=== PATIENT | male | born 1990 | race Caucasian/White ===

== ENCOUNTER 2018-12-19 20:50 | Inpatient (IN) ==
[2018-12-19] MEDS ORDERED: NS 1,000 ML IV ONE (22:50)
[2018-12-19] MEDS ORDERED: ATIVAN IV ONE (22:50)
[2018-12-19 23:23] LABS: BASO# 0.02 X1000 (0.0-0.2); BASO% 0.2 % (0.0-0.8); EOS# 0.02 X1000 (0.0-0.7); EOS% 0.2 % (0.0-10.0); HEMATOCRIT 31.1 % (42.0-52.0); HEMOGLOBIN 10.8 g/dL (14.0-18.0); IMM GRAN# 0.08 X1000 (0.0-0.04); IMM GRAN% 0.7 % (0.0-0.5); LYMPH# 0.96 X1000 (1.2-3.4); LYMPH% 8.8 % (20.5-51.1); MCH 29.3 PG (27-31); MCHC 34.7 g/dL (33-37); MCV 84.5 FL (81-99); MONO# 0.78 X1000 (0.11-0.59); MONO% 7.2 % (1.7-9.3); MPV 11.2 FL (7.4-10.4); NEUT# 9.01 X1000 (1.4-6.5); NEUT% 82.9 % (42.2-75.2); PLT 201 X1000 (130-400); RBC 3.68 XMIL (4.7-6.1); RDW 14.6 % (11.5-14.5); WBC 10.87 X1000 (4.8-10.8)
[2018-12-19 23:35] LABS: INR 1.16; PROTIME 15.4 Seconds (11.0-16.0)
[2018-12-19 23:36] LABS: PTT 33.7 Seconds (22.3-41.8)
[2018-12-19 23:49] LABS: ESTIMATED GFR > 60
[2018-12-19 23:53] LABS: AGAP 13; ALBUMIN 3.2 g/dL (3.5-5.0); ALKALINE PHOSPHATASE 98 U/L (32-122); BUN 10 mg/dL (8-22); CALCIUM 8.1 mg/dL (8.8-10.2); CHLORIDE 89 mmol/L (98-107); CK PROFILE 143 U/L (24-204); COSMO 252; CREATININE 0.8 mg/dL (0.7-1.2); GLUCOSE 120 mg/dL (70-104); GOT 33 U/L (10-34); GPT 35 U/L (10-44); POTASSIUM 4.7 mmol/L (3.5-5.1); SODIUM 125 mmol/L (136-145); TCO2 23 mmol/L (25-35); TOTAL PROTEIN 6.5 g/dL (6.3-8.3)
[2018-12-20 00:34] LABS: BILIRUBIN URINE NEGATIVE (NEGATIVE); BLOOD URINE 1+ (NEGATIVE); CLARITY CLEAR (CLEAR); COLOR YELLOW; GLUCOSE URINE NEGATIVE (NEGATIVE); KETONE URINE NEGATIVE (NEGATIVE); LEUKOCYTES URINE 2+ (NEGATIVE); NITRITE URINE NEGATIVE (NEGATIVE); PROTEIN URINE 1+(30 mg/dL) mg/dL (NEGATIVE); UROBILINOGEN URINE NORMAL
[2018-12-20 00:41] LABS: URINE BACTERIA 4+ /HFP; URINE CAST NONE SEEN /LPF; URINE CRYSTAL NONE SEEN /HPF; URINE EPITHELIAL CELLS <10 /HPF (<10); URINE RBC <10 /HPF (<10); URINE YEAST NONE SEEN /HPF
[2018-12-20 00:42] LABS: URINE SOURCE CLEAN CATCH
[2018-12-20 00:43] LABS: UR AMPHETAMINES QUAL PRESUMPTIVE POSITIVE (NONE DETECT); UR BARBITUATES QUAL NONE DETECTED (NONE DETECT); UR BENZODIAZEPIN QUAL NONE DETECTED (NONE DETECT); UR CANNABINOIDS QUAL NONE DETECTED (NONE DETECT); UR COCAINE QUAL NONE DETECTED (NONE DETECT); UR METHADONE QUAL NONE DETECTED (NONE DETECT); UR METHAMPHETAMINE QUAL PRESUMPTIVE POSITIVE (NONE DETECT); UR OPIATES QUAL PRESUMPTIVE POSITIVE (NONE DETECT); UR OXYCODONE QUAL NONE DETECTED (NONE DETECT); UR PCP QUAL NONE DETECTED (NONE DETECT); UR PROPOXYPHENE QUAL NONE DETECTED (NONE DETECT); UR TCA QUAL NONE DETECTED (NONE DETECT)
[2018-12-20] MEDS ORDERED: CARDIZEM IV ONE (00:58)
[2018-12-20] MEDS ORDERED: NS 1,000 ML IV ONE ×2 (00:59→02:04)
[2018-12-20] MEDS ORDERED: MOTRIN PO ONE (01:31)
[2018-12-20] MEDS ORDERED: CARDIZEM 125 MG/D5W 125 MG/125 ML IVPB IV SCH (02:00)
--- NOTE | 2018-12-20 02:05 | PROVIDER DOCUMENTATION ---
This chart was entered by Hui Acosta Scribe, acting as scribe for Janet Larkin MD. HPI-General Adult - General Chief Complaint: Extremity Pain Stated Complaint: EXTREMITY PAIN Time Seen by Provider: 12/19/18 22:21 Source: patient Allergies/Adverse Reactions: Patient Allergies Allergy/AdvReac Type Severity Reaction Status Date / Time No Known Allergies Allergy Verified 12/19/18 20:56 Home Medications: Home Medication List Medication Instructions Recorded Confirmed Last Taken Type Ketorolac [Toradol] 10 mg PO Q6H PRN PRN #20 tab 12/20/18 Unknown Rx - History of Present Illness -Gen Adult Nature of Presenting Problems: pt is a 28 yr old male presenting with complaint of left knee pain, no injury, pt reports he has had similar complaint x several months, pain moves randomly from joint to joint. Review of Systems - Adult - REVIEW OF SYSTEMS - ADULT Constitutional: reports: fatique, weight loss Eyes: reports: no symptoms reported Ears, Nose, Mouth & Throat: reports: no symptoms reported Cardiovascular: denies: chest pain, palpitations, syncope Respiratory: denies: cough, shortness of breath Gastrointestinal: reports: poor appetite. denies: abdominal pain, nausea Genitourinary: reports: no symptoms reported Musculoskeletal: reports: joint pain, muscle aches Integumentary: reports: no symptoms reported Neurological: denies: dizziness/vertigo, headache/migraines, syncope Psychiatric: reports: no symptoms reported Endocrine: reports: no symptoms reported Hematologic/Lymphatic: reports: no symptoms reported Allergic/Immunologic: reports: no symptoms reported All Other Systems: Reviewed and Negative Past History - Adult - PAST MEDICAL HISTORY-ADULT Review of Records: reports: Old Records Reviewed, Nursing Assessment Review, Medications Reviewed, Social history reviewed & non-contributory. Major Childhood Illnesses: reports: denies history Cardiovascular: reports: denies history Respiratory: reports: denies history Gastrointestinal: reports: hepatitis (c) Obstetrical/Gynecological: reports: denies history Genitourinary: reports: denies history Musculoskeletal: reports: denies history Neurological: reports: denies history Endocrine/Immune: reports: denies history Other Conditions: reports: denies history - IMMUNIZATION STATUS Childhood Immunizations: See Nurse Assessment Flu Vaccine: See Nurse Assessment - FAMILY HISTORY Family History: reviewed, not pertinent - SOCIAL HISTORY Smoking: denies Substance Use: denies Living Situation: family Physical Exam-General - PHYSICAL EXAM-ADULT Initial Vital Signs Reviewed: Yes - CONSTITUTIONAL General Appearance: alert, no apparent distress, thin - EYES Eyes: PERRL/EOMI - HEAD, EARS, NOSE, MOUTH & THROAT HENMT: normocephalic/atraumatic, moist mucous membranes - NECK Neck: non-tender, full range of motion, supple, normal inspection - RESPIRATORY Respiratory: lungs clear, normal breath sounds - CARDIOVASCULAR Cardiovascular: normal peripheral pulses, tachycardia (148) - GASTROINTESTINAL (ABDOMEN) Abdominal Exam: normal bowel sounds, non tender, soft - LYMPHATIC Lymphatic: no adenopathy - MUSCULOSKELETAL Back Exam: normal inspection, no CVA tenderness, no vertebral tenderness Extremity: tenderness (left knee). negative: deformity, swelling - SKIN Integumentary: normal color, normal turgor, warm/dry - NEUROLOGIC Neurologic: grossly normal - PSYCHIATRIC Psych/Mental Status: normal mood/affect Progress - PLAN OF CARE/RESULTS Progress/Plan/Lab Results: Vital Signs - 8 hr 12/19/18 20:51 Temperature 100.3 F H Pulse Rate 173 H Respiratory Rate 20 Blood Pressure 159/72 O2 Sat by Pulse Oximetry 96 Result Diagrams: 12/19/18 23:00 12/19/18 23:00 Departure - Departure Date of Disposition Decision: 12/20/18 Time of Disposition Decision: 00:56 DIAGNOSIS: Substance abuse Joint pain Qualifiers: Joint pain location: knee Laterality: left Qualified Code(s): M25.562 - Pain in left knee Fever Qualifiers: Fever type: drug-induced Qualified Code(s): R50.2 - Drug induced fever Disposition: ADMITTED INPATIENT 09 Certified Medical Emergency: Emergent Condition: Stable Prescriptions: Ketorolac [Toradol] 10 mg PO Q6H PRN PRN #20 tab PRN Reason: Pain Referrals and Follow-Ups: None,PCP [Primary Care Provider] - - Critical Care Note This patient required my direct & personal management of CC.: Yes Total Time (mins): 60 Critical Care Statement: This patient required my direct personal management to treat or rule out processes, the absence of which, could potentiallly result in sudden, clinically significant life or limb threatening deterioration. Attestation - Physician/ MOUNIKA Attestation Patient care was provided by Advanced Practice Provider:: No The physician spent face to face time with patient:: Yes (patient has spike) Advanced Practice Provider documentation review:: Supervising physician onsite and consulted in the evaluation and care of this patient. The physician did have a face to face encounter with the patient. This chart was documented by the indicated scribe, (Hui Acosta Scribe) and a ccurately reflects the services I performed and decisions made by me, Janet Larkin MD, as attested by the provider's signature.
[2018-12-20] MEDS ORDERED: ATIVAN IV ONE (03:57)
[2018-12-20] MEDS ORDERED: ATIVAN IV PRN (03:58)
[2018-12-20] MEDS: NS 1,000 ML IV SCH ×2 (04:14→10:12)
--- NOTE | 2018-12-20 04:53 | HISTORY AND PHYSICAL ---
PRIMARY CARE PHYSICIAN: None. COMPLAINT: Lower extremity pain and weakness. HISTORY OF PRESENTING ILLNESS: The patient is a 28-year-old male without any significant past medical history who had initially presented to [facility] with complaint of left knee pain and lower extremity weakness that has been ongoing for the past 3 months. Apparently the ER physician who evaluated the patient thought that the symptoms were secondary to substance abuse. His UDS was positive for methamphetamine and opiates. The patient was apparently agitated and was having fever, and due to lack of medical beds there the patient was transferred to [facility] for further treatment. At the time of my examination the patient states that his only problem was having lower extremity pain; however, he was initially found to be tachycardic and was put on Cardizem. The patient had denied any headache, fever, chills, chest pain, shortness of breath or weight changes, he just complained of lower extremity gonsales. PAST MEDICAL HISTORY: None. PAST SURGICAL HISTORY: None. ALLERGIES: No known drug allergies. CURRENT MEDICATIONS: None. SOCIAL HISTORY: No history of smoking. No alcohol use. Admits to marijuana use. FAMILY HISTORY: Positive for coronary disease in father. REVIEW OF SYSTEMS: Fourteen point review of systems is as in the HPI. Other systems negative. PHYSICAL EXAMINATION: GENERAL: A cooperative friendly male. He is resting comfortably. VITAL SIGNS: Temperature 100.1 degrees, pulse 142, respirations 21, blood pressure 120/57. HEENT: Atraumatic and normocephalic. Extraocular movements are intact. PERRLA. NECK: No masses. CHEST: Clear to auscultation. CARDIOVASCULAR: Tachycardic. ABDOMEN: Soft. Positive bowel sounds. EXTREMITIES: Lower extremity tenderness bilaterally. GENITOURINARY: No bladder distention. NEUROLOGIC: He is awake, alert and oriented x3. SKIN: Warm. LABORATORIES AND STUDIES: WBC is 10.87, hemoglobin 10.8, hematocrit 31.1, platelets 201,000. Sodium 125, potassium 4.7, chloride 89, CO2 is 23, BUN is 10, creatinine is 0.8, glucose is 120. Toxicology shows methamphetamine positive. ASSESSMENT: The patient is a 28-year-old male without any significant past medical history who initially had presented to [facility] with complaint of lower extremity weakness and left knee pain. He was also found to have fever and was tachycardic. He was put on intravenous Cardizem and due to lack of medical beds there he was transferred to [facility] for further treatmentr. 1. Substance abuse with methamphetamines and opioids. 2. Muscle weakness and lower extremity peripheral neuropathy. PLAN: 1. The patient is admitted to [facility]. 2. We will continue with supportive treatment. 3. Continue with adequate hydration. 4. We will consult Neurology for further evaluation of his lower extremity weakness and pain. 5. We will continue to follow, reassess and make further recommendation based on the patient's clinical course. cc: René Greenfield MD
--- NOTE | 2018-12-20 07:03 | Diag Imaging Result Doc PS360 ---
EXAM: CHEST-1 VIEW 12/19/2018 HISTORY: sepsis protocol TECHNIQUE: AP portable at 2327 COMMENT: There are no previous studies. There is no evidence of acute cardiac or pulmonary disease. IMPRESSION: Normal chest. Electronically signed by Magan Thomas 12/20/2018 7:01 AM
--- NOTE | 2018-12-20 07:25 | Diag Imaging Result Doc PS360 ---
EXAM: KNEE 1-2 VIEWS-LEFT 12/19/2018 HISTORY: pain TECHNIQUE: Left knee two views COMMENT: There is no evidence of fracture dislocation or periosteal reaction. There is no evidence of effusion. IMPRESSION: No evidence of acute disease. Electronically signed by Magan Thomas 12/20/2018 7:23 AM
[2018-12-20 08:14] VITALS: BP 115/66
--- NOTE | 2018-12-20 19:08 | CONSULTATION ---
DATE OF CONSULTATION: 12/20/2018 HISTORY OF PRESENT ILLNESS: Mr. Ayala is 28 years old and he reports discomfort in the limbs, mostly joints, possibly gait difficulty. He reports noticing over the last several months that the left foot would occasionally appear swollen, large, bluish purple. During that time, he would have discomfort with bearing weight, limiting his gait, sometimes to the point that he would crawl. Symptoms would usually resolve in a matter of hours or days. He believes his left foot was most often affected, but there were sometimes similar findings in the right foot, more recently in the left knee and in the left shoulder. He does not report specific loss of muscle power, loss of sensation, incontinence, altered awareness or unconsciousness. Workup here includes left knee x-ray showing nothing remarkable. Urine drug screen was positive for opiates, amphetamine, methamphetamine. WBC was 10,870. Sodium 125, glucose 120, calcium 8.1. Initial temperature was 100 degrees, later 103, recently 98. Heart rate was initially 170s and later 120s. Systolic blood pressure was initially 159, later 110-120 range. PHYSICAL EXAMINATION: On exam now, Mr. Ayala is awake, alert, attentive. He seems appropriate. Speech is not dysarthric. Language function is intact. Head and neck are unremarkable. There is no meningismus. Hands and feet are warm. He did well on [id number] testing. He reports good pinprick appreciation over the feet and legs. Proprioception is good at the great toe MTP joint bilaterally. Strength is normal on careful testing of the legs. Reflexes are 2+ at the knees and ankles symmetrically. Plantar response is flexor bilaterally. I did not test his gait. IMPRESSION AND RECOMMENDATIONS: Migratory arthralgia, question of swelling and discoloration, but nothing in his history or on exam now to suggest a primary neurologic or neuromuscular problem. I encouraged him to be careful with gait and activities and to avoid illicit drugs. I do not have anything to add to his hospital management at this time. I will be glad to see Mr. Ayala again, if needed. cc: MD YOLANDA Krishna III
[2018-12-21] MEDS: NS 1,000 ML IV SCH ×2 (00:50→00:51)
--- NOTE | 2018-12-21 12:01 | DISCHARGE SUMMARY ---
ADMISSION DATE: 12/20/2018 DISCHARGE DATE: 12/20/2018 PRINCIPAL DIAGNOSIS: Probable sepsis. SECONDARY DIAGNOSES: 1. Polysubstance abuse. 2. Lower extremity peripheral neuropathy. HOSPITAL COURSE: Mr. Barron Ayala is a 28-year-old male without any significant past medical history, who initially presented to [facility] with complaint of lower extremity weakness as well as left knee pain. He was found to have fever as well as tachycardia. The patient did receive intravenous Cardizem, and due to lack of medical bed, he was transferred to [facility]. While receiving care here, the patient decided to leave the hospital against medical advice. cc: Judah Hopkins MD
== END 2018-12-20 19:00 | disposition left against medical advice (07) | DRG 872 ==
LOC: P.ED 20:50 → 3S 12-20 02:17 → SUATTDRO 12-20 02:17 → 3N 12-20 12:00
PROVIDERS: ATTEND Internal Medicine
CPT/HCPCS: 71010; 71045; 73560; 80053; 80104; 80301; 80305; 81001; 82550; 83605; 84484; 85025; 85610; 85651; 85730; 87040; 87077; 87088; 87186; 96361; 96374; 96375; 99285; A9270; G0431; G0434; G0477; J2060; J7030

== ENCOUNTER 2018-12-22 19:30 | Inpatient (IN) ==
[2018-12-22] MEDS ORDERED: MOTRIN PO ONE (19:43)
[2018-12-22 20:57] LABS: INR 1.2; PROTIME 15.8 Seconds (11.0-16.0)
[2018-12-22 20:58] LABS: PTT 34.4 Seconds (22.3-41.8)
[2018-12-22 20:59] LABS: BASO# 0.02 X1000 (0.0-0.2); BASO% 0.2 % (0.0-0.8); EOS# 0.04 X1000 (0.0-0.7); EOS% 0.4 % (0.0-10.0); HEMATOCRIT 29.5 % (42.0-52.0); HEMOGLOBIN 10.2 g/dL (14.0-18.0); IMM GRAN% 0.9 % (0.0-0.5); LYMPH# 0.99 X1000 (1.2-3.4); LYMPH% 9.4 % (20.5-51.1); MCHC 34.6 g/dL (33-37); MCV 83.8 FL (81-99); MONO# 0.88 X1000 (0.11-0.59); MONO% 8.3 % (1.7-9.3); MPV 11.9 FL (7.4-10.4); NEUT# 8.51 X1000 (1.4-6.5); NEUT% 80.8 % (42.2-75.2); PLT 163 X1000 (130-400); RBC 3.52 XMIL (4.7-6.1); RDW 14.9 % (11.5-14.5); WBC 10.54 X1000 (4.8-10.8)
[2018-12-22 21:09] LABS: ESTIMATED GFR > 60
[2018-12-22 21:19] LABS: BANDS 5 % (0-1); LYMPHS 5 % (21-51); MONO 3 % (1-9); SEGS 87 % (42-75)
[2018-12-22 21:20] LABS: OVALOCYTES OCCASIONAL; POIKILOCYTOSIS OCCASIONAL; VACUOLES 1+
[2018-12-22 21:21] LABS: AGAP 14; ALBUMIN 2.9 g/dL (3.5-5.0); ALKALINE PHOSPHATASE 106 U/L (32-122); BUN 12 mg/dL (8-22); CALCIUM 7.6 mg/dL (8.8-10.2); CHLORIDE 86 mmol/L (98-107); CK PROFILE 66 U/L (24-204); COSMO 252; CREATININE 0.7 mg/dL (0.7-1.2); GLUCOSE 105 mg/dL (70-104); GOT 57 U/L (10-34); GPT 43 U/L (10-44); POTASSIUM 4.4 mmol/L (3.5-5.1); SODIUM 125 mmol/L (136-145); TCO2 25 mmol/L (25-35); TOTAL PROTEIN 6.2 g/dL (6.3-8.3)
--- NOTE | 2018-12-22 22:05 | Diag Imaging Result Doc PS360 ---
EXAM: CHEST-1 VIEW INDICATION: poss sepsis TECHNIQUE: One view COMPARISON: 12/19/2018 FINDINGS: The lungs are grossly clear. There is no discrete pleural fluid collection or pneumothorax. The cardiomediastinal silhouette and central vasculature are grossly unremarkable. IMPRESSION: No evidence of acute pathology by plain radiograph. Electronically signed by Heriberto Vallejo 12/22/2018 10:02 PM
[2018-12-22] MEDS ORDERED: TORADOL IV ONE (22:56)
[2018-12-22] MEDS ORDERED: NS 1,000 ML IV ONE (22:56)
[2018-12-22] MEDS ORDERED: KEFZOL 2 GM/D5W 2 GM/50 ML IVPB IV ONE (23:03)
[2018-12-22] MEDS ORDERED: VANCOMYCIN 1 GM/NS 1 GM/250 ML IVPB IV ONE (23:03)
[2018-12-23] MEDS ORDERED: KEFZOL 1 GM/D5W 2 GM/100 ML IVPB ONE (00:24)
--- NOTE | 2018-12-23 00:51 | PROVIDER DOCUMENTATION ---
This chart was entered by Hui Acosta Scribe, acting as scribe for Teja Shelley MD. HPI-General Adult - General Chief Complaint: Return/Recheck Stated Complaint: ABD PAIN Time Seen by Provider: 12/22/18 22:04 Source: patient Allergies/Adverse Reactions: Patient Allergies Allergy/AdvReac Type Severity Reaction Status Date / Time No Known Allergies Allergy Verified 12/22/18 19:39 Home Medications: Home Medication List Medication Instructions Recorded Confirmed Last Taken Type Ketorolac [Toradol] 10 mg PO Q6H PRN PRN #20 tab 12/20/18 Unknown Rx - History of Present Illness -Gen Adult Nature of Presenting Problems: pt is a 28 yr old male presenting with continued fever, fatigue, joint pain. pt seen/admitted 12/19, left AMA 12/20, pt called today and told his blood cultures were positive. pt returns for further tx. Location of Pain/Injury: reports: generalized (generalized joint pain) Pain Radiation: reports: no radiation Quality of Pain: reports: aching Severity: reports: moderate Onset/Duration: reports: gradual Timing: reports: still present, changing over time, getting worse Context/Activities at Onset: reports: rest Associated Symptoms: reports: fatigue, fever/chills, joint pain (multiple joints), malaise, pain with inspiration, weakness. denies: sinus congestion/drainage, shortness of breath Similar Symptoms Previously?: Yes Recently seen or treated by another doctor?: Yes Review of Systems - Adult - REVIEW OF SYSTEMS - ADULT Constitutional: reports: chills, fever, fatique Eyes: reports: no symptoms reported Ears, Nose, Mouth & Throat: reports: no symptoms reported Cardiovascular: reports: chest pain. denies: palpitations, syncope Respiratory: reports: pleurisy. denies: shortness of breath, wheezing Gastrointestinal: denies: abdominal pain, nausea, vomiting Genitourinary: reports: no symptoms reported Musculoskeletal: reports: joint pain (bilat hands, fett, left shoulder, left knee) Integumentary: reports: no symptoms reported Neurological: denies: dizziness/vertigo, headache/migraines Psychiatric: reports: no symptoms reported Endocrine: reports: excessive sweating Hematologic/Lymphatic: reports: no symptoms reported Allergic/Immunologic: reports: no symptoms reported All Other Systems: Reviewed and Negative Past History - Adult - PAST MEDICAL HISTORY-ADULT Review of Records: reports: Old Records Reviewed, Nursing Assessment Review, Medications Reviewed, Social history reviewed & non-contributory. Major Childhood Illnesses: reports: denies history Cardiovascular: reports: denies history Respiratory: reports: denies history Gastrointestinal: reports: denies history Obstetrical/Gynecological: reports: denies history Genitourinary: reports: denies history Musculoskeletal: reports: denies history Neurological: reports: denies history Endocrine/Immune: reports: denies history Other Conditions: reports: denies history - IMMUNIZATION STATUS Childhood Immunizations: See Nurse Assessment Flu Vaccine: See Nurse Assessment - FAMILY HISTORY Family History: reviewed, not pertinent - SOCIAL HISTORY Substance Use: marijuana, other (heroin) Living Situation: family Physical Exam-General - PHYSICAL EXAM-ADULT Initial Vital Signs Reviewed: Yes - CONSTITUTIONAL General Appearance: mild distress, thin, other (heavy diaphoresis, ruborous, tender hands and ankles) - EYES Eyes: PERRL/EOMI - HEAD, EARS, NOSE, MOUTH & THROAT HENMT: normocephalic/atraumatic, moist mucous membranes, normal ENT inspection - NECK Neck: non-tender, full range of motion, supple, normal inspection - RESPIRATORY Respiratory: chest non-tender, lungs clear, normal breath sounds, no respiratory distress, no accessory muscle use, pain on inspiration - CARDIOVASCULAR Cardiovascular: normal peripheral pulses, no edema, tachycardia - GASTROINTESTINAL (ABDOMEN) Abdominal Exam: non tender, soft - LYMPHATIC Lymphatic: no adenopathy - MUSCULOSKELETAL Back Exam: normal inspection, no CVA tenderness, no vertebral tenderness Extremity: normal range of motion, swelling (right hand, bilateral ankles), tenderness (bilateral hands, left shoulder, left knee, bilateral ankles) Peripheral Pulses: radial (R): 2+, radial (L): 2+ - SKIN Integumentary: normal color, normal turgor, warm/dry, erythema (bilateral hands) - NEUROLOGIC Neurologic: grossly normal - PSYCHIATRIC Psych/Mental Status: normal mood/affect Progress - PLAN OF CARE/RESULTS Progress/Plan/Lab Results: Vital Signs - 8 hr 12/22/18 19:36 12/22/18 20:43 12/22/18 21:24 Temperature 103.1 F H 98.9 F Pulse Rate 150 H 135 H Respiratory Rate 28 H 24 Blood Pressure 118/63 111/67 O2 Sat by Pulse Oximetry 99 98 12/22/18 22:02 Temperature Pulse Rate 99 H Respiratory Rate 19 Blood Pressure 125/61 O2 Sat by Pulse Oximetry 96 Laboratory Results - last 24 hr 12/22/18 12/22/18 12/22/18 20:15 20:15 20:15 WBC 10.54 RBC 3.52 L Hgb 10.2 L Hct 29.5 L MCV 83.8 MCH 29.0 MCHC 34.6 RDW Std Deviation 14.9 H Plt Count 163 MPV 11.9 H Immature Gran % (Auto) 0.9 H Neut % (Auto) 80.8 H Lymph % (Auto) 9.4 L [place] % (Auto) 8.3 Eos % (Auto) 0.4 Baso % (Auto) 0.2 Immature Gran # (Auto) 0.10 H Neut # (Auto) 8.51 H Lymph # (Auto) 0.99 L [place] # (Auto) 0.88 H Eos # (Auto) 0.04 Baso # (Auto) 0.02 Segmented Neutrophils 87 H Band Neutrophils 5 H Lymphocytes 5 L Monocytes 3 Vacuolization 1+ Poikilocytosis OCCASIONAL Ovalocytes OCCASIONAL PT 15.8 INR 1.20 PTT (Actin FS) 34.4 Sodium 125 L Potassium 4.4 Chloride 86 L Carbon Dioxide 25 Anion Gap 14 BUN 12 Creatinine 0.7 Estimated GFR/1.73 m2 > 60 BUN/Creatinine Ratio 17 Glucose 105 H Calculated Osmolality 252 Calcium 7.6 L Total Bilirubin 0.30 AST 57 H ALT 43 Alkaline Phosphatase 106 Creatine Kinase 66 Troponin T Total Protein 6.2 L Albumin 2.9 L Globulin 3.0 Albumin/Globulin Ratio 1.0 Plasma Lactate 12/22/18 12/22/18 20:15 20:15 WBC RBC Hgb Hct MCV MCH MCHC RDW Std Deviation Plt Count MPV Immature Gran % (Auto) Neut % (Auto) Lymph % (Auto) [place] % (Auto) Eos % (Auto) Baso % (Auto) Immature Gran # (Auto) Neut # (Auto) Lymph # (Auto) [place] # (Auto) Eos # (Auto) Baso # (Auto) Segmented Neutrophils Band Neutrophils Lymphocytes Monocytes Vacuolization Poikilocytosis Ovalocytes PT INR PTT (Actin FS) Sodium Potassium Chloride Carbon Dioxide Anion Gap BUN Creatinine Estimated GFR/1.73 m2 BUN/Creatinine Ratio Glucose Calculated Osmolality Calcium Total Bilirubin AST ALT Alkaline Phosphatase Creatine Kinase Troponin T < 0.010 Total Protein Albumin Globulin Albumin/Globulin Ratio Plasma Lactate 0.8 Orders Category Date Time Status Cardiac Monitoring DIRECTED Care 12/22/18 20:03 Active IV Insertion ORDERED Care 12/22/18 20:03 Completed Notify MD of + Sepsis Screen NOW Care 12/22/18 20:03 Active Notify Physician As Ordered Care 12/22/18 20:03 Active CHEST-1 VIEW [RAD] Stat Exams 12/22/18 20:03 Completed BLOOD CULTURE [BLDCUL] Stat Lab 12/22/18 20:15 Results CBC WITH DIFF [HEME] Stat Lab 12/22/18 20:15 Completed CK PROFILE [SP CHEM] Stat Lab 12/22/18 20:15 Completed COMPREHENSIVE METABOLIC PANEL [CHEM] Stat Lab 12/22/18 20:15 Completed LACTATE, PLASMA [CHEM] Q3H Lab 12/22/18 20:15 Completed LACTATE, PLASMA [CHEM] Q3H Lab 12/22/18 20:34 Ordered PROTIME WITH INR [COAG] Stat Lab 12/22/18 20:15 Completed PTT [COAG] Stat Lab 12/22/18 20:15 Completed TROPONIN T Stat Lab 12/22/18 20:[address] W/POSS RFLX CULT [URINALYSIS] Stat Lab 12/22/18 20:03 Uncollected Ibuprofen [Motrin] Med 12/22/18 19:43 Discontinued 800 mg PO NOW ONE Oxygen Device Stat Oth 12/22/18 20:03 Active Result Diagrams: 12/22/18 20:15 12/22/18 20:15 - REASSESSMENT Reassessment #1 Status: unchanged (no cardiac murmur and no overt sign heart failure. 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 There is no discrete pleural fluid collection or pneumothorax. The cardiomediastinal silhouette and central vasculature are grossly unremarkable. IMPRESSION: No evidence of acute pathology by plain radiograph. Electronically signed by Heriberto Vallejo 12/22/2018 10:02 PM 12/22/182201 Interpreting Physician: Heriberto Vallejo MD Dictated Date/Time: 12/22/182201 cc: Teja Shelley MD; None,PCP) Comparison with other Films: no changes (12/19/18) - CONSULTS/PCP/HOSPITALIST Notification #1 *Consult/PCP/Hospitalist*: Dr Conn Time Discussed: 23:40 Reason/Comments: discussed plan of care for pt admit Consult Disposition: Admit (transfer to [facility]) #2 Consult: Dr Greenfield Time Discussed: 23:55 Reason/Comments: discussed plan of care for transfer Departure - Departure Date of Disposition Decision: 12/23/18 Time of Disposition Decision: 00:49 DIAGNOSIS: Substance abuse, Joint pain, Fever, Staphylococcal sepsis Disposition: ADMITTED INPATIENT 09 Certified Medical Emergency: Emergent Condition: Fair Referrals and Follow-Ups: None,PCP [Primary Care Provider] - - Critical Care Note This patient required my direct & personal management of CC.: Yes Total Time (mins): 30 Critical Care Statement: This patient required my direct personal management to treat or rule out processes, the absence of which, could potentiallly result in sudden, clinically significant life or limb threatening deterioration. Attestation - Physician/ MOUNIKA Attestation Patient care was provided by Advanced Practice Provider:: No The physician spent face to face time with patient:: Yes Advanced Practice Provider documentation review:: Supervising physician onsite and consulted in the evaluation and care of this patient. The physician did have a face to face encounter with the patient. This chart was documented by the indicated scribe, (Hui Acosta Scribe) and accurately reflects the services I performed and decisions made by me, Teja Shelley MD, as attested by the provider's signature.
[2018-12-23 01:02] LABS: BILIRUBIN URINE NEGATIVE (NEGATIVE); BLOOD URINE NEGATIVE (NEGATIVE); CLARITY CLEAR (CLEAR); COLOR YELLOW; GLUCOSE URINE NEGATIVE (NEGATIVE); KETONE URINE NEGATIVE (NEGATIVE); LEUKOCYTES URINE 1+ (NEGATIVE); NITRITE URINE NEGATIVE (NEGATIVE); PH URINE 6.5; PROTEIN URINE NEGATIVE (NEGATIVE); UROBILINOGEN URINE NORMAL
[2018-12-23 01:13] LABS: URINE BACTERIA 4+ /HFP; URINE CAST NONE SEEN /LPF; URINE CRYSTAL NONE SEEN /HPF; URINE EPITHELIAL CELLS <10 /HPF (<10); URINE RBC <10 /HPF (<10); URINE YEAST NONE SEEN /HPF
[2018-12-23 01:14] LABS: URINE SOURCE CLEAN CATCH
[2018-12-23 01:17] LABS: UR AMPHETAMINES QUAL PRESUMPTIVE POSITIVE (NONE DETECT); UR BARBITUATES QUAL NONE DETECTED (NONE DETECT); UR BENZODIAZEPIN QUAL NONE DETECTED (NONE DETECT); UR CANNABINOIDS QUAL NONE DETECTED (NONE DETECT); UR COCAINE QUAL NONE DETECTED (NONE DETECT); UR METHADONE QUAL NONE DETECTED (NONE DETECT); UR METHAMPHETAMINE QUAL PRESUMPTIVE POSITIVE (NONE DETECT); UR OPIATES QUAL PRESUMPTIVE POSITIVE (NONE DETECT); UR OXYCODONE QUAL NONE DETECTED (NONE DETECT); UR PCP QUAL NONE DETECTED (NONE DETECT); UR PROPOXYPHENE QUAL NONE DETECTED (NONE DETECT); UR TCA QUAL NONE DETECTED (NONE DETECT)
[2018-12-23] MEDS ORDERED: NS 1,000 ML IV ONE (03:23)
[2018-12-23] MEDS ORDERED: TYLENOL PO PRN (03:23)
[2018-12-23] MEDS ORDERED: VANCOMYCIN IV PER PHARMACY MISC SCH (04:45)
--- NOTE | 2018-12-23 04:50 | HISTORY AND PHYSICAL ---
PRIMARY CARE PHYSICIAN: None. CHIEF COMPLAINT: Called by hospital for positive blood culture. HISTORY OF PRESENTING ILLNESS: A 28-year-old male with a history of hep C, who recently left the hospital against medical advice. Presents back to [facility] after he was called by hospital that he had a positive blood culture. The patient was evaluated there and, due to history of patient having fever, weakness, and positive blood cultures, and a history of IV drug use, it was thought that patient would need to be admitted for further treatment. Due to lack of beds, he was transferred to [facility] for further evaluation and management. At time of my examination, patient states that he feels weak and was having fevers and crawling after he left the hospital to get around, and did not feel well. PAST MEDICAL HISTORY: Hepatitis C. PAST SURGICAL HISTORY: None. ALLERGIES: No known drug allergies. CURRENT MEDICATIONS: None. SOCIAL HISTORY: He denies any history of smoking. No alcohol use. Admits to illicit drug use, including IV drugs. FAMILY HISTORY: Positive for coronary artery disease in father. REVIEW OF SYSTEMS: Fourteen-point review of systems is as in HPI, other systems negative. PHYSICAL EXAMINATION: GENERAL: Cooperative male, he is resting more comfortably now. VITAL SIGNS: Temperature 98.9 degrees, pulse 99, respiration 19, blood pressure 125/61. HEENT: Atraumatic, normocephalic. Extraocular movements intact. PERRLA. NECK: No masses. CHEST: Clear to auscultation. CARDIOVASCULAR: Regular rate and rhythm. ABDOMEN: Soft. Positive bowel sounds. EXTREMITIES: No edema. NEUROLOGIC: He is awake, alert, oriented x3. Speech is intact. GENITOURINARY: No bladder distention. SKIN: Warm. LABORATORIES AND STUDIES: WBCs 10.54, hemoglobin 10.2, hematocrit 29.5, platelets 163,000. Sodium 125, potassium 4.4, chloride 86, CO2 is 25, BUN is 12, creatinine 0.7. Glucose is 105. Tox screen shows methamphetamines, amphetamine, and opioids positive. ASSESSMENT: A 28-year-old male with a history of hepatitis C, who recently left the hospital against medical advice, who returns back to [facility] after he was called by the hospital that he had positive blood cultures. He was evaluated and due to lack of beds there, he was transferred to [facility] for further evaluation and management. 1. Fever, generalized weakness, mostly in his lower extremities. 2. Positive blood culture and history of intravenous drug use with suspected bacteremia. 3. History of hepatitis C. PLAN: 1. We will admit patient to medical floor. 2. We will check another set of blood cultures. 3. Start patient on IV antibiotics. 4. We will check an echocardiogram. 5. Continue with supportive treatment. 6. We will continue to follow and reassess, make further recommendation based on patient's clinical course. cc: René Greenfield MD
[2018-12-23] MEDS ORDERED: VANCOMYCIN 1 GM/NS 1 GM/250 ML IVPB IV ONE (05:30)
[2018-12-23] MEDS ORDERED: ATARAX PO PRN (10:10)
[2018-12-23] MEDS ORDERED: BENTYL PO PRN (10:10)
[2018-12-23] MEDS: ATARAX PO PRN (11:17)
[2018-12-23] MEDS: NS 1,000 ML IV SCH ×2 (12:13→16:14)
[2018-12-23] MEDS: ZOFRAN IV PRN ×2 (12:20→18:43)
[2018-12-23] MEDS: ATIVAN IV PRN ×2 (12:21→18:43)
[2018-12-23] MEDS: TORADOL IV PRN ×2 (12:22→18:40)
[2018-12-23] MEDS: TYLENOL PO PRN (12:22)
--- NOTE | 2018-12-23 15:01 | ECHO REPORT ---
ORDER DATE: 12/23/2018 INTERPRETING PHYSICIAN: Dr. Tyler CLINICAL INDICATIONS: This is a 28-year-old male with IV drug abuse and MRSA in the blood. M-MODE MEASUREMENTS: Left ventricle end diastole: 5.2 cm. Left ventricle end systole: 4.0 cm. Posterior wall: 0.8 cm. Interventricular septum: 0.9 cm. Left atrium: 3.6 cm. Aortic diameter: 3.6 cm. SUMMARY OF 2-DIMENSIONAL IMAGIN. Left ventricular function is normal. Ejection fraction is 55%. No wall motion abnormality. 2. The right ventricle appears to be normal. 3. Aortic valve has three cusps. It looks normal. 4. Mitral valve opens normally. Color flow mapping indicates trivial degree of regurgitation. 5. A small pericardial effusion appears to be present. 6. The tricuspid valve is abnormal. It shows thickening with an oscillating mass attached to the septal leaflet of the tricuspid valve. It measures 1.1 cm in length and 0.4 cm in width. This is consistent with vegetation. There is mild to moderate degree of tricuspid regurgitation. 7. The pulmonic valve appears to be grossly normal. I do not see vegetation attached to the pulmonic valve. CONCLUSIONS: In summary, this echocardiographic study is positive for the presence of endocardiac vegetation attached to the tricuspid valve with mild to moderate degree of tricuspid regurgitation. The pulmonary pressure is elevated, estimated at 52 mmHg. Clinical correlation recommended. cc: Goyo Tyler MD
--- NOTE | 2018-12-23 15:01 | PROGRESS NOTE ---
DATE: 12/23/2018 Patient with previous hospitalization a left AMA prior to much workup. Was subsequently called and asked to come back because of blood cultures positive for MRSA. Patient returned to care. Complaining of fevers and malaise. Repeat cultures are preliminarily positive again for gram- positive cocci. Previous cultures with MRSA resistant only to penicillin, oxacillin and erythromycin. Has had fevers here up to 103.1. Occasional tachycardia. Initial UDS here still positive for opiates, amphetamines and methamphetamine. The patient has known history of IV drug abuse. Echocardiogram pending to evaluate for endocarditis which is a high concern. Treating fever and body aches with Tylenol and Toradol. May also have an aspect of withdrawal. Giving Atarax, Bentyl. Low-dose Ativan available occasionally if needed. On vancomycin for his bacteremia. Blood pressure a little on the low side so holding off on clonidine for now but if worsening withdrawal develops may try low-dose clonidine as well.
--- NOTE | 2018-12-23 17:28 | CARDIOLOGY CONSULTATION ---
DATE: 12/23/2018 CONSULTATION REQUESTED BY: Hospitalist service. The reason is suspected endocarditis, positive septicemia. HISTORY: Barron Espinosa is a 28-year-old male who presented to the hospital emergency room on December 19. At that time, he reported having knee pain. At that time, they felicia blood cultures and the blood cultures came back positive for MRSA. The patient had left the hospital against medical advice. He was contacted by the hospital staff and was instructed to report himself back to the hospital. He came back on December 22. A chest x-ray shows no evidence of acute pathology. We have done an echocardiogram today which I have reviewed and it shows evidence of vegetation attached to the tricuspid valve consistent with tricuspid valve endocarditis. PAST MEDICAL HISTORY: Negative. He has never been sick. He does not taken any [id number] medication. PAST SURGICAL HISTORY: He has no surgical history. SOCIAL HISTORY: He is . He has no children. The patient admits to the fact that he has been using IV drugs for the past 6 months. His toxic drug screen tested positive for opiates, amphetamine and methamphetamine. FAMILY HISTORY: His parents live in [place]. They do not have any specific heart disease. Physical Examination PHYSICAL EXAMINATION: Vital signs: Blood pressure 116/46, temperature 101.2 degrees, respirations 20, pulse fluctuates from 87 to 130. He is awake, alert. He appears to be acutely ill. HEENT: Unremarkable. Chest: Few crepitations at the level of the right base. No wheezes. Heart: Sounds are regular rhythmic, somewhat tachycardia at times. I do not hear any murmur. Abdomen: Soft, nontender. Extremities: Show good pulses. There is tenderness in the left ankle joint. Skin: Shows extensive tattoos in the thorax, upper torso, arms. Neurologic: Nonfocal. Moves 4 extremities. IMPRESSION: 1. A patient who presents with general malaise, fever and positive blood cultures for methicillin- resistant Staphylococcus aureus indicating staphylococcal septicemia. 2. Echocardiographic evidence of vegetation involving the tricuspid valve with mild to moderate degree of regurgitation of that valve. That is diagnostic for tricuspid valve endocarditis. 3. History of intravenous drug abuse. RECOMMENDATION: Patient is: 1. Counseled to avoid illicit drugs forever. 2. Long-term antibiotic suppression per Infectious Disease business process consultant. 3. Follow-up echocardiogram in 4 to 6 weeks. Please call us if you have any questions or concerns. We will not be following this patient on a daily basis. cc: Goyo Tyler MD
--- NOTE | 2018-12-23 17:31 | INFECTIOUS DISEASE CONSULT REP ---
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 The patient said that he has a history of hepatitis C. RECOMMENDATIONS: I agree with treating the patient with vancomycin. I have ordered a hepatitis profile and an HIV antibody screen in addition. After tomorrow, I will repeat his blood cultures. The patient will require 6 weeks of IV antibiotics for his endocarditis. DISCUSSION: The patient was admitted the hospital with a 3-day history of fever, chest pain which was pleuritic in nature, and dyspnea. DIAGNOSTIC STUDIES: His blood culture from 2 days ago grew methicillin-resistant Staphylococcus aureus. His urine grew no pathogenic organism. Repeat urine culture is pending. The repeat blood culture is showing gram-positive cocci, which almost certainly will be methicillin-resistant Staphylococcus aureus again. Echocardiogram shows a tricuspid valve vegetation. Chest x-ray shows clear lung veloz. CBC shows a white count of 10,540, hemoglobin 10.2, platelet count 163,000. Creatinine is 0.7, GFR is greater than 60. AST is 57. Urinalysis showed white cells and bacteria. Urine culture is pending. PAST MEDICAL HISTORY/REVIEW OF SYSTEMS: Eyes and Ears: He hears and sees okay. Respiratory: See Present Illness. Cardiac: See Present Illness. Gastrointestinal: No nausea/vomiting or diarrhea. Genitourinary: No dysuria or flank pain. Integument: The patient does not have a rash, but he has an a large amount of tattoos all over his body. Bones, Joints, Muscles: No swollen joints or muscle aches. Neurologic: No seizures. No loss of motor or sensory function. PREVIOUS HOSPITALIZATIONS AND OPERATIONS: None. MEDICAL DISEASES: Positive for IV drug abuse. INFECTIOUS DISEASE HISTORY: Positive for hepatitis C. FAMILY HISTORY: Positive for hypertension, myocardial infarction, and cancer. SOCIAL HISTORY: [place] He is . 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 He admits to IV drug abuse. The patient denies smoking or drinking alcoholic beverages. ALLERGIES: He has no drug allergies. HOME MEDICATION: The only one listed is Toradol. PHYSICAL EXAMINATION: Vital Signs: Temperature is 101.2 degrees, pulse 133, respirations 20, blood pressure 116/46. Height/Weight: The patient is 5 feet 11 inches tall and weighs 122 pounds. General: This is an ill and malnourished-appearing, young male. He appears to be in no acute distress. Head, Eyes, Ears, Nose, and Throat: He can hear my spoken words and see near objects. No drainage is coming from his nose or ears. I did not see any white patches on his tongue. Neck: No meningismus. Lungs: There were bilateral rales. Cardiovascular: Heart rate was regular and rapid. I did not hear a murmur. Abdomen: Soft and nontender. Neurologic: The patient is awake. He can move his extremities. He does not have a tremor. Thank you for the consult. cc: Juan Carlos Burroughs MD
[2018-12-23] MEDS: VANCOMYCIN 1,500 MG in NS 250 ML IV SCH (18:26)
[2018-12-24] MEDS: NS 1,000 ML IV SCH ×3 (01:15→21:28)
[2018-12-24] MEDS: TYLENOL PO PRN ×2 (03:01→18:41)
[2018-12-24] MEDS: ATIVAN IV PRN ×3 (03:11→18:41)
[2018-12-24] MEDS: TORADOL IV PRN ×3 (03:11→18:41)
[2018-12-24] MEDS: VANCOMYCIN 1,500 MG in NS 250 ML IV SCH ×2 (05:29→17:07)
[2018-12-24 06:17] LABS: BASO# 0.03 X1000 (0.0-0.2); BASO% 0.3 % (0.0-0.8); EOS# 0.09 X1000 (0.0-0.7); HEMATOCRIT 32.5 % (42.0-52.0); HEMOGLOBIN 10.9 g/dL (14.0-18.0); IMM GRAN# 0.13 X1000 (0.0-0.04); IMM GRAN% 1.4 % (0.0-0.5); LYMPH# 1.11 X1000 (1.2-3.4); LYMPH% 11.9 % (20.5-51.1); MCH 28.6 PG (27-31); MCHC 33.5 g/dL (33-37); MCV 85.3 FL (81-99); MONO% 8.6 % (1.7-9.3); NEUT# 7.18 X1000 (1.4-6.5); NEUT% 76.8 % (42.2-75.2); PLT 220 X1000 (130-400); RBC 3.81 XMIL (4.7-6.1); RDW 15.2 % (11.5-14.5); WBC 9.34 X1000 (4.8-10.8)
[2018-12-24 06:19] LABS: AGAP 9; BUN 12 mg/dL (8-22); CALCIUM 7.7 mg/dL (8.8-10.2); CHLORIDE 99 mmol/L (98-107); COSMO 264; CREATININE 0.7 mg/dL (0.7-1.2); ESTIMATED GFR > 60; GLUCOSE 100 mg/dL (70-104); SODIUM 132 mmol/L (136-145); TCO2 24 mmol/L (25-35)
--- NOTE | 2018-12-24 07:50 | INFECTIOUS DISEASE PROGRESS NO ---
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 The patient also has a history of hepatitis. MEDICATIONS: The patient is receiving IV vancomycin. PHYSICAL EXAMINATION: Vital Signs: Temperature is 102.6 degrees, pulse 135, respirations 17, blood pressure 117/60. General: This is a thin, malnourished, and ill-appearing, young male. He is in no acute distress. HEENT: He can hear my spoken words and see near objects. He does not have any white coating on his tongue. Neck: He does not have any pain in his neck when he moves his head. Lungs: Clear to auscultation. Cardiovascular: Regular heart rate. I did not hear a murmur. Abdomen: Soft and nontender. Integument: The patient has multiple tattoos. Neurologic: The patient was sleeping, but he is arousable. He can move his extremities. There is no tremor. LABORATORY DATA: CBC shows a white count of 9340, hemoglobin 10.9, platelet count 220,000. Repeat blood cultures on 12/22/2018 are positive for gram-positive cocci. Blood cultures have been drawn today also. ASSESSMENT AND PLAN: As mentioned above, the patient has methicillin-resistant Staph aureus tricuspid valve endocarditis. My plan is to continue with vancomycin. If the patient's fever continues and/or if the patient's blood cultures keep remaining positive, then I will add another agent, most likely rifampin. Also, I am waiting for the result of the hepatitis panel, and if the patient does have hepatitis C, I will consult Gastroenterology. COMORBIDITIES: His main comorbidity is that he is an IV drug abuser. cc: Juan Carlos Burroughs MD
--- NOTE | 2018-12-24 09:36 | EKG Report ---
Test Performed on : 12/23/2018 09:19:28 AM Test Reason : fever,positive blood cultures, iv drug use Blood Pressure : / mmHG Vent. Rate : 101 BPM Atrial Rate : 101 BPM P-R Int : 158 ms QRS Dur : 088 ms QT Int : 336 ms P-R-T Axes : 062 061 058 degrees QTc Int : 435 ms Sinus tachycardia. Otherwise normal ECG No previous ECGs available Confirmed by Alonzo HERNANDEZ, Esdras Hartmann ([id number]) on 12/25/2018 10:00:18 AM
[2018-12-24 10:57] LABS: HIV ANTIBODY SCREEN SEE COMMENTS
[2018-12-24 11:56] LABS: HEPATITIS PROFILE ACUTE SEE COMMENTS
--- NOTE | 2018-12-24 15:19 | PROGRESS NOTE ---
DATE: 12/24/2018 INTERVAL HISTORY: Patient still with some intermittent high fevers up to 102 6. Occasional tachycardia but appears to be improving overall. No new complaints. No other acute events. REVIEW OF SYSTEMS: Twelve point review of systems negative except interval history . LABS: WBC 9.3, hemoglobin 10.9, hematocrit 32.5, platelets 220,000, sodium 132, potassium 4, BUN 12, creatinine 0.7, calcium 7.7 . IMAGING: Echocardiogram showing EF 55%, tricuspid valve vegetation, moderate pulmonary hypertension, moderate tricuspid regurg. VITALS: T-max 102.6, pulse 85, respiration 16, blood pressure 124/74, O2 saturation 100% room air. General: No acute distress vitals as above. HEENT: Normocephalic, atraumatic. Moist mucous membranes no cervical adenopathy. Cardiovascular: Minimally tachycardic but regular no murmurs noted. Pulmonary: Clear to auscultation bilaterally. Abdomen: Soft nontender nondistended, bowel sounds positive . Extremities: Peripheral pulses intact, no clubbing cyanosis Neurologic: Cranial nerves grossly intact. No focal deficits identified . Psychiatric: Asleep but arousable oriented x3. Skin: Extensive tattooing but no new rashes or lesion seen. ASSESSMENT AND PLAN: 1. Tricuspid valve endocarditis, methicillin-resistant Staphylococcus aureus bacteremia. Patient with methicillin-resistant Staphylococcus aureus bacteremia and infection of the tricuspid valve likely related to his intravenous drug use. Still with fevers although some slight downtrend. Blood cultures from 12/22 growing again gram-positive cocci. Repeat blood cultures 12/24 are from today nothing so far. Previous blood culture with methicillin- resistant Staphylococcus aureus sensitive to vancomycin. Continue vancomycin. ID following and considering addition of rifampin if he continues to spike high fevers or fails clear his blood cultures. 2. History of hepatitis C confirmatory studies pending but hepatitis C by history. 3. Hyponatremia improved with fluids overnight. 4. Pulmonary hypertension known. 5. Polysubstance abuse initial urine drug screen positive for opiates, amphetamines and methamphetamine. Patient counseled on substance avoidance and clean needles .
[2018-12-25] MEDS: TORADOL IV PRN ×3 (04:10→21:50)
[2018-12-25] MEDS: ATIVAN IV PRN ×2 (04:10→12:47)
[2018-12-25] MEDS: VANCOMYCIN 1,500 MG in NS 250 ML IV SCH (06:09)
[2018-12-25] MEDS: NS 1,000 ML IV SCH ×3 (06:11→19:16)
[2018-12-25 10:30] LABS: BASO# 0.04 X1000 (0.0-0.2); BASO% 0.5 % (0.0-0.8); EOS# 0.15 X1000 (0.0-0.7); EOS% 1.7 % (0.0-10.0); HEMATOCRIT 32.6 % (42.0-52.0); HEMOGLOBIN 10.6 g/dL (14.0-18.0); IMM GRAN# 0.06 X1000 (0.0-0.04); IMM GRAN% 0.7 % (0.0-0.5); LYMPH# 1.25 X1000 (1.2-3.4); LYMPH% 14.5 % (20.5-51.1); MCH 28.2 PG (27-31); MCHC 32.5 g/dL (33-37); MCV 86.7 FL (81-99); MONO# 0.53 X1000 (0.11-0.59); MONO% 6.1 % (1.7-9.3); MPV 11.6 FL (7.4-10.4); NEUT# 6.61 X1000 (1.4-6.5); NEUT% 76.5 % (42.2-75.2); PLT 242 X1000 (130-400); RBC 3.76 XMIL (4.7-6.1); RDW 15.2 % (11.5-14.5); WBC 8.64 X1000 (4.8-10.8)
[2018-12-25 10:38] LABS: POTASSIUM 4.3 mmol/L (3.5-5.1); SODIUM 134 mmol/L (136-145)
[2018-12-25 10:39] LABS: AGAP 11; ALB/GLOB RATIO 0.6; ALBUMIN 2.2 g/dL (3.5-5.0); ALKALINE PHOSPHATASE 105 U/L (32-122); BUN 9 mg/dL (8-22); CALCIUM 7.4 mg/dL (8.8-10.2); CHLORIDE 100 mmol/L (98-107); COSMO 267; CREATININE 0.6 mg/dL (0.7-1.2); ESTIMATED GFR > 60; GLUCOSE 99 mg/dL (70-104); GOT 35 U/L (10-34); GPT 33 U/L (10-44); TCO2 23 mmol/L (25-35); TOTAL BILIRUBIN 0.29 mg/dL (0.20-1.00); TOTAL PROTEIN 5.6 g/dL (6.3-8.3)
--- NOTE | 2018-12-25 13:13 | INFECTIOUS DISEASE PROGRESS NO ---
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 The patient's hepatitis profile came back and it is positive for hepatitis C antibody. MEDICATIONS: The patient is receiving IV vancomycin. PHYSICAL EXAMINATION: Vital Signs: The patient's fever has cleared. Currently, his vital signs show a temperature of 98.4 degrees, pulse 116, respirations 18, blood pressure 139/83. General: This is a thin, malnourished, ill-appearing young male. He is sleeping. Head, Eyes, Ears, Nose, and Throat: No drainage noted from the nose or ears. I did wake the patient up. He does not have any white patches in his mouth. Neck: He can move his head without any pain in his neck. Lungs: Clear to auscultation. Cardiovascular: Heart rate is regular and rapid. Abdomen: Soft and nontender. Integument: As mentioned yesterday, the patient has multiple tattoos. Neurologic: The patient was sleeping and I did wake him up. He can move his arms and legs. There is no tremor. LAB AND X-RAY: There was no radiographic study done yesterday and none has been ordered for today. The patient's CBC shows a white count of 9340, hemoglobin 10.9, and platelet count 220,000. Creatinine is 0.7. GFR is greater than 60. Hepatitis profile was positive for hepatitis C antibody. The patient's blood has been sent off for testing for hepatitis C virus RNA by PCR. HIV antibody is nonreactive. Blood cultures drawn yesterday are growing gram-positive cocci which almost certainly will be methicillin-resistant Staphylococcus aureus. ASSESSMENT AND PLAN: The patient has methicillin-resistant Staphylococcus aureus tricuspid valve endocarditis. I am going to continue with vancomycin. I am ordering blood cultures for today and if the ones that I am getting today are still positive, I will start the patient on oral rifampin. As regarding the patient's hepatitis C, if the hepatitis C RNA by PCR is negative, then the patient will not require any treatment for hepatitis C. If the hepatitis C RNA by PCR is positive, then he will need treatment for his hepatitis C and I will consult gastroenterology. COMORBIDITIES: He is a drug addict. cc: Juan Carlos Burroughs MD
--- NOTE | 2018-12-25 13:19 | PROGRESS NOTE ---
DATE: 12/25/2018 SUBJECTIVE: Patient is lying in bed. He is complaining of bilateral knee and ankle discomfort, pain. He is not feeling shortness of breath. No chest pain today. We will continue with antibiotics. Cardiology Department and Infectious Disease Department following this patient closely. OBJECTIVE: Vital Signs: Temperature 97.7 degrees, pulse 104, respiratory rate 16, blood pressure 136/83, and oxygen saturation 100% on room air. HEENT: Head normocephalic. No trauma. PERRLA. Neck: Supple. No JVD. No masses. Central trachea. Chest: Clear to auscultation. No wheezing. No rales. Cardiovascular: RRR. Tachycardic. Abdomen: Soft, nontender, and nondistended. No hepatosplenomegaly. Extremities: Trace lower extremity edema. No clubbing. No cyanosis. He does have an extensively tattooing body but no rash is seen. He does have a mass that probably is an abscess on his left arm around 5 to 6 cm diameter fluctuating. LABORATORY: WBC 9.3, hemoglobin 10.9, hematocrit 32.5, and platelets 220,000. Sodium 132, potassium 4, chloride 94, bicarbonate 24, BUN 12, creatinine 0.7, glucose 100, calcium 7.7, and magnesium 2.1. ASSESSMENT AND PLAN: 1. Tricuspid valve endocarditis, MRSA bacteremia, likely due to IV drug use and cocaine. He is still having some fevers. We are following the blood cultures so far. The one done yesterday was positive for gram-positive cocci. We repeated today, and has been negative. Infectious Disease Department and Cardiology Department on board. 2. History of hepatitis C, corroborated by laboratory. Likely, once this patient is better, we will need to set up an appointment with Gastroenterology Department as an outpatient for treatment. 3. Hyponatremia. Pending lab work today, but his sodium was much better compared with admission yesterday at 132. 4. Pulmonary hypertension. Continue to monitor. 5. Polysubstance abuse. Initial urine toxicology screen showed opiates, amphetamine and methamphetamine. The patient just told me that he used IV cocaine as well. I had a conversation with this patient, I recommended to stop doing drugs. I will continue with daily cessation education. cc: Akira Robert MD
--- NOTE | 2018-12-25 17:02 | Diag Imaging Result Doc PS360 ---
EXAM: US NON VASC EXTREMITY LIMITED INDICATION: R/O cyst vs abscess LUE TECHNIQUE: COMPARISON: None. FINDINGS: Corresponding to the palpable lesion at the left forearm, there is a complex cystic lesion measuring 4.6 x 2.1 x 3.1 cm. It contains internal debris and septation. This may represent an evolving hematoma. Abscess is less likely but cannot be excluded in the right clinical scenario. IMPRESSION: Complex cystic lesion with extensive internal debris corresponding to the palpable abnormality at the left forearm as detailed above. Electronically signed by Heriberto Vallejo 12/25/2018 4:59 PM
[2018-12-25] MEDS: VANCOMYCIN 1,800 MG in NS 250 ML IV SCH (19:20)
[2018-12-25] MEDS: TYLENOL PO PRN (20:00)
[2018-12-26] MEDS: ATIVAN IV PRN ×2 (01:59→22:23)
[2018-12-26] MEDS: TORADOL IV PRN ×3 (02:09→22:23)
[2018-12-26] MEDS: NS 1,000 ML IV SCH ×3 (05:28→18:53)
[2018-12-26 05:55] LABS: BASO# 0.02 X1000 (0.0-0.2); BASO% 0.2 % (0.0-0.8); EOS# 0.17 X1000 (0.0-0.7); EOS% 1.7 % (0.0-10.0); HEMATOCRIT 32.1 % (42.0-52.0); HEMOGLOBIN 10.6 g/dL (14.0-18.0); IMM GRAN# 0.07 X1000 (0.0-0.04); IMM GRAN% 0.7 % (0.0-0.5); LYMPH# 1.42 X1000 (1.2-3.4); LYMPH% 14.2 % (20.5-51.1); MCH 28.3 PG (27-31); MCV 85.8 FL (81-99); MONO# 0.76 X1000 (0.11-0.59); MONO% 7.6 % (1.7-9.3); MPV 10.8 FL (7.4-10.4); NEUT# 7.58 X1000 (1.4-6.5); NEUT% 75.6 % (42.2-75.2); PLT 332 X1000 (130-400); RBC 3.74 XMIL (4.7-6.1); RDW 14.9 % (11.5-14.5); WBC 10.02 X1000 (4.8-10.8)
[2018-12-26 06:12] LABS: AGAP 11; BUN 8 mg/dL (8-22); CALCIUM 7.7 mg/dL (8.8-10.2); CHLORIDE 101 mmol/L (98-107); COSMO 269; CREATININE 0.6 mg/dL (0.7-1.2); ESTIMATED GFR > 60; GLUCOSE 103 mg/dL (70-104); POTASSIUM 3.9 mmol/L (3.5-5.1); SODIUM 135 mmol/L (136-145); TCO2 23 mmol/L (25-35)
--- NOTE | 2018-12-26 07:12 | INFECTIOUS DISEASE PROGRESS NO ---
DATE: 12/26/2018 PRESENT ILLNESS: The patient has a methicillin-resistant Staph aureus tricuspid valve endocarditis due to drug abuse. He appears to have developed an abscess in his left arm, and he told me that that area where the presumed abscess is is where he injected himself. The patient also has hepatitis C. MEDICATIONS: The patient is receiving IV vancomycin. PHYSICAL EXAMINATION: Vital Signs: Temperature is 98.1 degrees, pulse 125, respirations 21, blood pressure 148/82. General: This is a thin, malnourished, ill-appearing, young male. He is awake today. HEENT: He can hear my spoken words and see near objects. He does not have any white coating of his tongue. Neck: He does not have any pain in his neck when he moves his neck or he moves his head. Lungs: Clear to auscultation. Cardiovascular: Heart rate is regular and rapid. Abdomen: Soft and nontender. Extremities: The patient has a fluctuant area on the left arm, which on ultrasound could be a hematoma or an abscess. Neurologic: The patient is alert. He can move his extremities. There is no tremor. IMAGING AND LABORATORY DATA: CBC today shows a white count of 10,020, hemoglobin 10.6, and platelet count 332,000. Creatinine is 0.6. GFR is greater than 60. The ultrasound on the patient's arm showed possible hematoma or abscess. ASSESSMENT AND PLAN: The patient has methicillin-resistant Staphylococcus aureus tricuspid valve endocarditis. If his repeat blood cultures are negative, then I will continue with vancomycin as a single agent, and the day that the blood cultures turn negative will be day #1 of treatment. If he still has positive blood cultures, then I am going to add rifampin to his vancomycin. As regarding presumed abscess on his left arm, I have put in a surgical consult to see if surgery is indicated on the patient's arm where the abscess is. As regarding the patient's hepatitis C, I am waiting for the hepatitis C RNA by PCR. If that is negative, then the patient will not need treatment for hepatitis C, but if it is positive, then the patient will need treatment for the hepatitis C. I discussed with the patient and his about where the patient will be going when he leaves the hospital, and the patient's , first of all assured me that she does not do drugs and that she would be watching the patient carefully. Also, I told them that any of the patient's friends who do drugs should not visit the patient, so that drugs will not be brought into the household. COMORBIDITIES: The patient is a drug addict. cc: Juan Carlos Burroughs MD
[2018-12-26] MEDS: VANCOMYCIN 1,800 MG in NS 250 ML IV SCH ×2 (08:53→19:58)
[2018-12-26] MEDS ORDERED: XYLOCAINE 1% INJ ONE (09:55)
[2018-12-26 10:24] LABS: HCV BY PCR SEE COMMENTS
--- NOTE | 2018-12-26 12:21 | GENERAL SURGERY CONSULTATION ---
DATE: 12/26/2018 REASON FOR CONSULTATION: Left arm abscess. HISTORY OF PRESENT ILLNESS: This is a 28-year-old male drug addict who has recently been injecting himself in his left upper arm who has been admitted with MRSA bacteremia and Staph tricuspid valve endocarditis. He also has been not found to have an abscess in his left upper arm. He says it began last week. It is tender and swollen, but not particularly red. Worsens with direct pressure. No relieving factors. PAST MEDICAL HISTORY: IV drug abuse and as described above in HPI. PAST SURGICAL HISTORY: None. SOCIAL HISTORY: He is . No children. He admits to intravenous drug abuse. FAMILY HISTORY: Reviewed and noncontributory. CURRENT MEDICATIONS: 1. Bentyl. 2. Atarax. 3. Toradol. 4. Ativan. 5. Vancomycin. 6. Zofran. REVIEW OF SYSTEMS: Ten systems reviewed and negative except as noted above. PHYSICAL EXAM: Temperature 98 degrees, pulse 82, respirations 15, blood pressure 140/91 O2 saturation 99%.General: A thin male who appears ill, but in no acute distress. HEENT: Normocephalic, atraumatic. Extraocular muscles intact. Pupils equal, round, reactive to light. Sclerae anicteric. Neck: Supple no thyromegaly. CV: Regular rate and rhythm. Respiratory: Bilateral breath sounds. No work of breathing. GI: Soft, nontender. No organomegaly or mass. Extremities: Warm. No cyanosis or clubbing. Skin: There is a large fluctuant tender abscess in the left anterior upper arm. This measure several cm across. It is not particularly red or warm. There is no crepitus. LABORATORY: White blood cell count 10, hemoglobin 10.6, platelet count 332,000. Electrolytes reviewed and unremarkable. IMAGING: A left arm ultrasound performed yesterday showed a complex cystic lesion with extensive internal debris measuring 4.6 x 2.1 x 3.1 cm consistent with abscess or hematoma. ASSESSMENT/PLAN: A 28-year-old male with MRSA bacteremia and endocarditis, now with apparent left arm abscess related IV drug abuse. We will perform incision and drainage at the bedside. I discussed the risks and benefits with him including bleeding, injury to nearby organs such as vessels or nerves, and other imponderables. He understands and agrees to proceed. cc: Mukul Jones MD
--- NOTE | 2018-12-26 12:29 | OPERATIVE NOTE ---
PROCEDURE DATE: 12/26/2018 PREOPERATIVE DIAGNOSES: 1. Left arm abscess. 2. Staph endocarditis. 3. Staph bacteremia. 4. Hepatitis C. POSTOPERATIVE DIAGNOSES: 1. Left arm abscess. 2. Staph endocarditis. 3. Staph bacteremia. 4. Hepatitis C. PROCEDURE: Incision and drainage of left arm abscess. SURGEON: Dr. Mukul Jones. FINANCIAL INSTITUTION MANAGER: None. ESTIMATED BLOOD LOSS: Scant. COMPLICATIONS: None apparent. FINDINGS: Copious pus. TECHNIQUE: He was left in his hospital bed in supine position. The skin was prepped with Betadine and sterile drapes. 1% lidocaine was used to anesthetize the skin over the fluctuant area. An 11 blade was used to make a stab incision into the abscess cavity. Copious pus was expressed and drained. Culture was obtained. The wound was then packed with iodoform gauze and a sterile dressing was applied. There were no apparent complications. cc: Mukul Jones MD
--- NOTE | 2018-12-26 15:14 | PROGRESS NOTE ---
DATE: 12/26/2018 SUBJECTIVE: This patient is lying in bed. He is complaining of left arm pain. He just had an I and D in that arm because of an abscess, done by Surgery Department today. We have a blood culture from yesterday, 12/25/2018, that has been negative so far. The previous culture from 12/23/2018 and 12/24/2018 are positive for Staphylococcus aureus. OBJECTIVE: Vital Signs: Temperature 98, pulse 107, respiratory rate 17, blood pressure 140/97, and oxygen saturation 100% on room air. HEENT: Head normocephalic. No trauma. PERRLA. Neck: Supple. No JVD. No masses. Central trachea. Chest: Clear to auscultation. No wheezing. No rales. Cardiovascular: RRR. Abdomen: Soft, nontender, and nondistended. No hepatosplenomegaly. Extremities: No edema. No clubbing. No cyanosis. Skin: He has an extensive amount of tattoos. He does have a dressing on his left arm with a little bit of serosanguineous material. No signs of bleeding or neurological problem. Neurological: The patient is alert and oriented x3. No focal deficit. LABORATORY: WBC 10, hemoglobin 10.6, hematocrit 32.1, and platelets 332,000. Sodium 136, potassium 3.9, chloride 101, bicarbonate 23, BUN 8, creatinine 0.6, glucose 103, calcium 7.7. ASSESSMENT AND PLAN: 1. Tricuspid valve endocarditis, MRSA bacteremia, likely due to IV drug use, cocaine. He is still having receiving treatment. The plan is to continue with IV antibiotics for some more weeks, Infectious Disease Department on board. Blood culture from yesterday, so far, negative. 2. History of hepatitis C, corroborated by laboratory. Infectious Disease Department on board, probably he will need to be seen by Gastroenterology Department as well. 3. Hyponatremia. Stable. 4. Left arm abscess, status post incision and drainage. Culture has been sent to the laboratory. We will wait for the results. 5. Pulmonary hypertension. Continue to monitor. 6. Polysubstance abuse. Initial urine toxicology showed opiates, amphetamine and methamphetamine. The patient told me yesterday that he used IV cocaine. I had a conversation with the patient, I recommended to stop doing drugs. I will continue with daily cessation education. cc: Akira Robert MD
[2018-12-27] MEDS: TORADOL IV PRN ×3 (02:05→18:05)
[2018-12-27] MEDS: NS 1,000 ML IV SCH ×3 (02:05→18:00)
[2018-12-27 05:16] LABS: BASO# 0.06 X1000 (0.0-0.2); BASO% 0.8 % (0.0-0.8); EOS# 0.25 X1000 (0.0-0.7); EOS% 3.5 % (0.0-10.0); HEMATOCRIT 30.3 % (42.0-52.0); HEMOGLOBIN 9.9 g/dL (14.0-18.0); IMM GRAN# 0.06 X1000 (0.0-0.04); IMM GRAN% 0.8 % (0.0-0.5); LYMPH# 1.71 X1000 (1.2-3.4); LYMPH% 23.9 % (20.5-51.1); MCH 28.3 PG (27-31); MCHC 32.7 g/dL (33-37); MCV 86.6 FL (81-99); MONO# 0.55 X1000 (0.11-0.59); MONO% 7.7 % (1.7-9.3); MPV 10.1 FL (7.4-10.4); NEUT# 4.52 X1000 (1.4-6.5); NEUT% 63.3 % (42.2-75.2); PLT 364 X1000 (130-400); RDW 14.7 % (11.5-14.5); WBC 7.15 X1000 (4.8-10.8)
[2018-12-27 05:53] LABS: AGAP 9; BUN 5 mg/dL (8-22); CALCIUM 8.2 mg/dL (8.8-10.2); CHLORIDE 105 mmol/L (98-107); COSMO 277; CREATININE 0.5 mg/dL (0.7-1.2); ESTIMATED GFR > 60; GLUCOSE 96 mg/dL (70-104); POTASSIUM 4.2 mmol/L (3.5-5.1); SODIUM 140 mmol/L (136-145); TCO2 26 mmol/L (25-35)
--- NOTE | 2018-12-27 06:53 | INFECTIOUS DISEASE PROGRESS NO ---
DATE: 12/27/2018 PRESENT ILLNESS: The patient has a methicillin-resistant Staph aureus tricuspid valve endocarditis due to drug abuse. The patient's latest repeat blood cultures are still positive for gram positive cocci which will be methicillin-resistant Staph aureus. He yesterday underwent incision and drainage of his left arm abscess. The patient's hepatitis C by PCR was 4,078 which means the patient has an active infection. MEDICATIONS: The patient is receiving IV vancomycin. Day 1 will be the first day that the patient has repeat blood cultures which are sterile. PHYSICAL EXAMINATION: VITAL SIGNS: Temperature is 98.1 degrees, pulse 80, respirations 17, blood pressure 137/74. GENERAL: This is a thin somewhat malnourished appearing young male. He is awake today. He is in no acute distress. HEAD, EYES, EARS, NOSE AND THROAT: He could hear my spoken words and see near objects. I did not notice any white patches in his mouth. NECK: No neck pain with movement of the neck. LUNGS: Clear to auscultation. CARDIOVASCULAR: Heart rate is regular. EXTREMITIES: The patient's left arm has a dressing on it. The dressing is intact. ABDOMEN: Soft and not tender. NEUROLOGICAL: The patient is alert. He can move his extremities. There is no tremor. INTEGUMENT: No rashes. The patient has an extensive amount of tattoos. LABS AND IMAGING: There is no new radiographic study. The patient's repeat blood cultures unfortunately are positive for gram positive cocci. The patient's CBC shows a white count of 7,150, hemoglobin 9.9 and platelet count 364,000. Creatinine is 0.5. Liver function studies are normal. Hepatitis C by PCR is 4,780. The patient's gram stain from the abscess of his left arm shows no bacteria. ASSESSMENT AND PLAN: Patient has methicillin-resistant Staph aureus tricuspid valve endocarditis. His latest blood cultures are positive; therefore, I am adding p.o. Rifampin 600 mg daily. Some of the side effects of the antibiotic including liver toxicity and turning the urine red or orange in color have been explained to the patient who agrees with treatment. The patient's hepatitis C indicates that he has an active infection. I have put in a consult for GI to see the patient regarding treatment of active hepatitis C. The patient has a left arm abscess that was drained yesterday by Dr. Jones. COMORBIDITIES: The patient is a drug addict. cc: Juan Carlos Burroughs MD
[2018-12-27] MEDS: RIFAMPIN PO SCH (08:28)
[2018-12-27] MEDS: VANCOMYCIN 1,800 MG in NS 250 ML IV SCH (08:28)
--- NOTE | 2018-12-27 09:37 | PROGRESS NOTE ---
DATE: 12/27/2018 SUBJECTIVE: This patient is lying comfortably in bed. He is not complaining of pain at this moment. We do have a positive blood culture from 12/25/2018 that is positive for gram-positive cocci. OBJECTIVE: Vital Signs: Temperature 98.4 degrees, pulse 84, respiratory rate 15, blood pressure 132/75, oxygen saturation 99 on room air. HEENT: Head normocephalic. No trauma. PERRLA. Neck: Supple. No JVD. No masses. Central trachea. Chest: Clear to auscultation. No wheezing. No rales. Cardiovascular: RRR. Abdomen: Soft, nontender, nondistended. No hepatosplenomegaly. Extremities: No edema, no clubbing, no cyanosis. Skin: He has an extensive amount of tattoos. He does have a dressing on his left arm with a little bit of serosanguineous material. No signs of bleeding or neurologic problems. The patient is alert and oriented x3. No focal deficits. Laboratory: WBCs 7.1, hemoglobin 9.9, hematocrit 30.3, platelets 364,000. Sodium 140, potassium 4.2, chloride 105, bicarbonate 26, BUN 5, creatinine 0.5, glucose 96, calcium 8.2. ASSESSMENT AND PLAN: 1. Tricuspid valve endocarditis, methicillin-resistant Staphylococcus aureus assay bacteremia, likely due to intravenous drug use, cocaine. He is still receiving treatment. The plan is to continue with intravenous antibiotics for 4 more weeks but his blood culture is coming back positive. The last one from 12/25/2018 is positive for gram-positive cocci. Infectious disease department on board. They added rifampin to his medications. 2. History of hepatitis C, corroborated by laboratory. Infectious disease department on board and they have requested an evaluation by gastroenterology department. 3. Hyponatremia, resolved. 4. Left arm abscess, status post incision and drainage. Culture has been sent to the laboratory. We will wait for results. 5. Pulmonary hypertension. Continue to monitor. 6. Polysubstance abuse. Initial urine toxicology showed opiates, methamphetamines, and amphetamine. The patient told me a few days ago that he used intravenous cocaine. I had a conversation with the patient. I recommended to stop doing drugs. I will continue with daily cessation education. cc: Akira Robert MD
--- NOTE | 2018-12-27 18:26 | GENERAL SURGERY PROGRESS NOTE ---
DATE: 12/27/2018 SUBJECTIVE: His arm is hurting, but feels a little better. OBJECTIVE: Vital Signs: He is afebrile. Vital signs are stable this morning. General: He is awake, alert, oriented x3, in no acute distress. Extremities: The left upper arm abscess site was examined. There is less swelling. No redness. There is still some purulent drainage. The packing was removed and replaced. ASSESSMENT AND PLAN: 28-year-old male with left arm abscess, endocarditis, Staphylococcus bacteremia from drug abuse. I would continue packing the wound daily until the purulence disappears, and then just cover with gauze or Band-Aid. Continue the antibiotics as you are doing. cc: Mukul Jones MD
[2018-12-27] MEDS: TYLENOL PO PRN (20:50)
[2018-12-27] MEDS: VANCOMYCIN 2,000 MG in NS 500 ML IV SCH (20:53)
[2018-12-28] MEDS: ATIVAN IV PRN ×3 (01:11→18:50)
[2018-12-28] MEDS: TORADOL IV PRN ×3 (01:12→17:17)
[2018-12-28] MEDS: NS 1,000 ML IV SCH ×2 (05:20→17:17)
[2018-12-28 06:04] LABS: AGAP 10; BUN 7 mg/dL (8-22); CHLORIDE 103 mmol/L (98-107); COSMO 275; CREATININE 0.5 mg/dL (0.7-1.2); ESTIMATED GFR > 60; GLUCOSE 93 mg/dL (70-104); POTASSIUM 3.8 mmol/L (3.5-5.1); SODIUM 139 mmol/L (136-145); TCO2 26 mmol/L (25-35)
[2018-12-28] MEDS: RIFAMPIN PO SCH ×2 (07:58→09:03)
[2018-12-28] MEDS: VANCOMYCIN 2,000 MG in NS 500 ML IV SCH ×2 (07:59→20:25)
--- NOTE | 2018-12-28 11:10 | INFECTIOUS DISEASE PROGRESS NO ---
DATE: 12/28/2018 PRESENT ILLNESS: The patient has methicillin-resistant Staph aureus tricuspid valve endocarditis. His infection occurred because of IV drug abuse. The patient also has an active hepatitis C infection. MEDICATIONS: The patient is on IV vancomycin and p.o. rifampin. Day 1 of treatment will be the first day that the patient's repeat blood cultures are sterile. PHYSICAL EXAMINATION: Vital Signs: Temperature Is 97.5 degrees, pulse 92, respirations 22, blood pressure 153/94. General: This is an ill and malnourished-appearing, young male. He is in no acute distress. Head, eyes, ears, nose, and throat: Can hear my spoken words and see near objects. He does not have any white patches in his mouth. Neck: No meningismus. Lungs: Clear to auscultation. Cardiovascular: Heart rate is regular. Abdomen: Soft and nontender. Extremities: The patient's arm has a dressing on it where an abscess was drained by Dr. Jones. Neurologic: The patient is alert. He can move his extremities. There is no tremor. Integument: No rashes but patient has an extensive amount of tattoos. LAB AND RADIOLOGY: The patient's creatinine is 0.5, GFR is greater than 60. There is no CBC for today. There is no new radiographic study for today either. ASSESSMENT AND PLAN: Patient has methicillin-resistant Staph aureus tricuspid valve endocarditis. I plan on continuing vancomycin and rifampin. I will repeat the patient's blood cultures after the patient has been on both of these antimicrobial agents for 48 hours. As regarding his hepatitis C consult was ordered yesterday for Dr. Abreu. He did not come by. The nurse is going to call his office and call the office and tell Dr. Abreu that there is a consult on the patient for hepatitis C. The patient has an abscess on his left arm from where he had the abscess drained. The culture from the abscess showed no growth. COMORBIDITY: He is a drug addict. cc: Juan Carlos Burroughs MD
--- NOTE | 2018-12-28 11:43 | PROGRESS NOTE ---
DATE: 12/28/2018 SUBJECTIVE: This patient is lying comfortably in bed. He is complaining of left arm pain at this moment, which has been controlled with pain treatment. We are still having positive blood cultures showing Staphylococcus aureus and MRSA. Rifampin has been added to his medications. We will get a new blood culture hopefully tomorrow. OBJECTIVE: Vital Signs: Temperature 97.9 degrees, pulse 90, respiratory rate 15, blood pressure 140/83, and oxygen saturation 100% on room air. HEENT: Head normocephalic. No trauma. PERRLA. Neck: Supple. No JVD. No masses. Central trachea. Chest: Clear to auscultation. No wheezing. No rales. Abdomen: Soft, nontender. Nondistended. No hepatosplenomegaly. Extremities: No edema. No clubbing. No cyanosis. Skin: He has an extensive amount of tattoos. He does have a dressing on his left arm with a little bit of serosanguineous material. No sign of bleeding or neurological problems. Neurological: The patient is alert and oriented x3. No focal deficits. LABORATORY: Sodium 139, potassium 3.8, chloride 103, bicarbonate 26, BUN 7, and creatinine 0.5, glucose 93 and calcium 8. ASSESSMENT AND PLAN: 1. Tricuspid valve endocarditis, MRSA bacteremia, likely due to IV drug use cocaine. He is still receiving antibiotics. The plan is to continue with IV treatment as recommended per Infectious Disease Department. Rifampin has been added to his medications. 2. History of hepatitis C corroborated by laboratory. Infectious Disease Department on board and they have requested an evaluation by Gastroenterology Department during this hospitalization. 3. Hyponatremia resolved. 4. Left arm abscess status post I and D. A culture from that area is still negative. It required more incubation. We will monitor. Continue with same management for now. 5. Pulmonary hypertension. Continue to monitor. 6. Polysubstance abuse. Initial urine toxicology showed opiates, methamphetamine, and amphetamine. The patient told me a few days ago that he used intravenous cocaine. I had a conversation with the patient multiple times. He needs to stop doing drugs, and I will continue with daily cessation education. cc: Akira Robert MD
--- NOTE | 2018-12-28 15:09 | GASTROENTEROLOGY CONSULTATION ---
DATE: 12/28/2018 REASON FOR CONSULTATION: Hepatitis C history. PRESENT ILLNESS: The patient was admitted to the hospital with bacteremia secondary to IV drug use. 28-year-old with a reported history of hepatitis C diagnosed approximately 2 years ago. He states he never pursued treatment because he did not have insurance. Patient has had problems with left arm abscess and has seen [facility]. He has also been found to have endocarditis. He is on antibiotics. PAST MEDICAL HISTORY: Hepatitis C, IV drug use. PAST SURGICAL HISTORY: None reported. ALLERGIES: No known drug allergies. HOME MEDICATIONS: Toradol as needed. SOCIAL HISTORY: Denies tobacco use. Denies alcohol use. He admits to illicit drug use, heroin over the last 6 months. Patient also has multiple tattoos. REVIEW OF SYSTEMS: Per history of present illness. PHYSICAL EXAMINATION: Vital Signs: Temperature 97.9 degrees, pulse 90, respirations 15, blood pressure 140/83. General: Patient is awake, alert, no acute distress. Respiratory: Lung sounds clear bilaterally. Cardiovascular: Regular rate and rhythm. Abdomen: Soft. Positive bowel sounds. Nontender. Extremities: He has dressing to left upper arm. No lower extremity edema noted. Skin: Multiple tattoos. LABORATORY: Hematology: WBC 7.15 hemoglobin 9.9, hematocrit 30.3, MCV 86.6, platelets 364,000. Chemistry: Sodium 139, potassium 3.8, chloride 103, CO2 26, BUN 7, creatinine 0.5, glucose 93, calcium 8.0, total bilirubin 0.29, AST 35, ALT 33, alkaline phosphatase 105. Hepatitis panel shows reactive hepatitis C antibody. Hepatitis C viral load 4078, 3.61 log. HIV was nonreactive. ASSESSMENT AND PLAN: 1. Endocarditis methicillin-resistant Staphylococcus aureus bacteremia associated with intravenous drug use. He is on antibiotics, following with Infectious Disease. 2. Left arm abscess status post incision and drainage. Following with [facility]. 3. History of hepatitis C. Patient was diagnosed several years ago when he was in care home. He has not been treated. He has not been seen by [facility] due to him not having insurance. 4. Polysubstance abuse. Recommend patient stop drug use. He will need to be clean for at least 6 months before he can be treated for hepatitis C. Will order hepatitis C genotype. I have recommended him follow up with us as an outpatient once he has been clean for 6 months. If he does not have insurance at that time, we will pursue patient assistance. If he has insurance, we will request for approval for hepatitis C treatment. Further plans will be made as needed. I have discussed this case with Dr. Haley. Dictated by NAHUN Ceballos for Hernan Haley MD cc: NAHUN Oliver MD
--- NOTE | 2018-12-29 06:32 | GENERAL SURGERY PROGRESS NOTE ---
DATE: 12/29/2018 SUBJECTIVE: The patient seems to be doing about the same. He still has his dressing intact to his left arm. Nurses have been changing it. We will continue local wound care. We will continue antibiotics. cc: Brandin Farias MD
[2018-12-29 07:17] LABS: HEMATOCRIT 29.8 % (42.0-52.0); HEMOGLOBIN 9.7 g/dL (14.0-18.0); MCH 28.4 PG (27-31); MCHC 32.6 g/dL (33-37); MCV 87.4 FL (81-99); MPV 9.7 FL (7.4-10.4); RBC 3.41 XMIL (4.7-6.1); RDW 14.7 % (11.5-14.5); WBC 10.41 X1000 (4.8-10.8)
[2018-12-29 08:00] LABS: AGAP 10; BUN 6 mg/dL (8-22); CALCIUM 8.1 mg/dL (8.8-10.2); CHLORIDE 97 mmol/L (98-107); COSMO 265; CREATININE 0.6 mg/dL (0.7-1.2); ESTIMATED GFR > 60; GLUCOSE 110 mg/dL (70-104); POTASSIUM 3.8 mmol/L (3.5-5.1); SODIUM 133 mmol/L (136-145); TCO2 26 mmol/L (25-35)
[2018-12-29] MEDS: TORADOL IV PRN ×2 (09:59→20:43)
[2018-12-29] MEDS: VANCOMYCIN 2,000 MG in NS 500 ML IV SCH ×2 (09:59→20:32)
[2018-12-29] MEDS: RIFAMPIN PO SCH (10:00)
[2018-12-29] MEDS: NS 1,000 ML IV SCH ×2 (15:21→17:12)
--- NOTE | 2018-12-29 17:28 | PROGRESS NOTE ---
DATE: 12/29/2018 SUBJECTIVE: Patient is lying comfortably in bed. No new complaints. Left arm abscess showed Methicillin resistant staphylococcus aureus, continue with same management. OBJECTIVE: Vital Signs: Temperature 98.6 degrees, pulse 110, respiratory rate 16, blood pressure 149/91 oxygen saturation 99 on room air. HEENT: Head normocephalic, no trauma. PERRLA. Neck: Supple. No JVD. No masses. Central trachea. Chest: Clear to auscultation. No wheezing. No rales. Abdomen: Soft, nontender, nondistended. No hepatosplenomegaly. Extremities: No edema, no clubbing, no cyanosis. Skin: He has an extensive amount of tattoos. He does have a dressing on his left arm that looks clean. No signs of bleeding. Neurological: The patient is alert and oriented x3. No focal deficits. LABORATORY: WBC 10.4, hemoglobin 9.7, hematocrit 29.8, platelets 448,000. Sodium 133, potassium 3.8, chloride 97, bicarbonate 26, BUN 6, creatinine 0.6, glucose 110, calcium 8.1. ASSESSMENT AND PLAN: 1. Tricuspid valve endocarditis, Methicillin resistant staphylococcus aureus bacteremia, likely due to intravenous drug use, cocaine. He is still receiving antibiotics. The plan is to continue with intravenous vancomycin and rifampin until the blood culture is negative. We repeated the blood cultures today. 2. History of hepatitis C, corroborated by laboratory, gastroenterology department has been consulted. 3. Hyponatremia resolved. 4. Left arm abscess status post incision and drainage. This seems to be getting better. We have a positive culture that showed Methicillin resistant staphylococcus aureus from that area. 5. Pulmonary hypertension. Continue to monitor. 6. Polysubstance abuse. Initial urine toxicology showed opiates, amphetamine and methamphetamine. The patient told me a few days ago that he was using IV cocaine. I have had multiple conversations with this patient about drug use. I explained to him the risk of doing drugs. I will continue with daily cessation education. 7. Overall, he seems to be stable. Today he had an episode of fever though. We will monitor. We will check his new blood culture from today. cc: Akira Robert MD
[2018-12-30] MEDS: TORADOL IV PRN ×3 (01:10→18:02)
[2018-12-30] MEDS: ATIVAN IV PRN (06:48)
[2018-12-30] MEDS: NS 1,000 ML IV SCH ×3 (07:24→19:11)
--- NOTE | 2018-12-30 09:44 | Diag Imaging Result Doc PS360 ---
EXAM: CHEST-2 VIEWS - 12/30/2018 HISTORY: pneumonia TECHNIQUE: Chest two views COMPARISON: 12/22/2018 one view chest FINDINGS: Heart size is normal. There are ill-defined mild right basilar infiltrates and/or atelectasis. There are small bilateral pleural effusions. There is no pneumothorax identified. IMPRESSION: Ill-defined mild bibasilar infiltrates and/or atelectasis. Small bilateral pleural effusions. Electronically signed by Eb Bedolla 12/30/2018 9:42 AM
[2018-12-30] MEDS: VANCOMYCIN 2,000 MG in NS 500 ML IV SCH ×2 (10:01→22:10)
--- NOTE | 2018-12-30 10:01 | INFECTIOUS DISEASE PROGRESS NO ---
DATE: 12/30/2018 PRESENT ILLNESS: The patient has a methicillin-resistant Staph aureus tricuspid valve endocarditis secondary to IV drug abuse. He also has active hepatitis C. Finally today, the patient had 2 blood cultures drawn, and 1 of them is growing a gram-negative john. MEDICATIONS: The patient is on a combination of IV vancomycin and p.o. rifampin. PHYSICAL EXAMINATION: Vital Signs: Temperature is 98.6 degrees, pulse 85, respirations 18, blood pressure 151/98. General: This is an ill-appearing, young male. He is in no acute distress. He did mention to me that he has occasional right-sided chest pain in the past 3 to 4 days. HEENT: He can hear my spoken words and see near objects. He does not have any white coating of his tongue. Neck: He does not have any neck pain when he moves his neck or head. Lungs: Clear to auscultation. Cardiovascular: Heart rate is regular. Abdomen: Soft and nontender. Extremities: The patient's left arm abscess that was drained by Dr. Jones has a dressing on it. The dressing is intact. IV sites are not red or swollen. Neurologic: The patient is alert. He can move his extremities. He is able to ambulate. There is no tremor. Integument: The patient has extensive tattoos, but no rash. IMAGING AND LABORATORY DATA: There is no new radiology. The patient's CBC shows a white count of 10,410, hemoglobin 9.7, and platelet count 488,000. The patient's creatinine is 0.6. GFR is greater than 60. The patient had blood cultures drawn on 12/29/2018. One blood cultures grew gram-negative rods, and the other one was sterile thus far. ASSESSMENT AND PLAN: The patient has methicillin-resistant Staphylococcus aureus tricuspid valve endocarditis. I plan to continue vancomycin and rifampin. As regarding the patient's gram- negative john, I am going to get a chest x-ray to look for pneumonia, a urine culture, and empirically start the patient on cefepime pending identification and susceptibility testing of the gram-negative john. As regarding the patient's hepatitis C, Dr. Haley's nurse practitioner saw the patient and said that they would not treat the patient unless he had been free from drugs for 6 months, and that the patient should call Dr. Tera's office for an appointment once he is not doing drugs for 6 months. I also ordered a drug screen. COMORBIDITY: The patient is a drug addict. cc: Juan Carlos Burroughs MD [email or web address]
[2018-12-30] MEDS: RIFAMPIN PO SCH (10:02)
[2018-12-30] MEDS: MAXIPIME 1 GM in NS 50 ML IV SCH ×2 (10:07→18:35)
[2018-12-30] MEDS: ATARAX PO PRN (10:08)
[2018-12-30 11:11] LABS: UR AMPHETAMINES QUAL PRESUMPTIVE POSITIVE (NONE DETECT); UR BARBITUATES QUAL NONE DETECTED (NONE DETECT); UR BENZODIAZEPIN QUAL NONE DETECTED (NONE DETECT); UR CANNABINOIDS QUAL NONE DETECTED (NONE DETECT); UR COCAINE QUAL NONE DETECTED (NONE DETECT); UR METHADONE QUAL NONE DETECTED (NONE DETECT); UR OPIATES QUAL NONE DETECTED (NONE DETECT); UR OXYCODONE QUAL NONE DETECTED (NONE DETECT); UR PCP QUAL NONE DETECTED (NONE DETECT)
--- NOTE | 2018-12-30 13:54 | PROGRESS NOTE ---
DATE: 12/30/2018 SUBJECTIVE: Patient is lying comfortably in bed. No acute events overnight. Blood culture from 12/29/2017 show showed gram-negative rods. Dr. Burroughs from Infectious Disease department put this patient on cefepime, and we will wait for final results. OBJECTIVE: Vital Signs: Temperature 98.5 degrees, pulse 99, respiratory rate 16, blood pressure 142/91, oxygen saturation 99 on room air. HEENT: Head normocephalic, no trauma. PERRLA. Neck: Supple. No JVD. No masses. Central trachea. Chest: Clear to auscultation. No wheezing. No rales. Abdomen: Soft, nontender, nondistended. No hepatosplenomegaly. Extremities: No edema, no clubbing, no cyanosis. Neurological: This patient is alert and oriented x3. No focal deficits. Skin: He has an extensive amount of tattoos. He does have a dressing on his left arm that looks clean. DIAGNOSTIC STUDIES: No lab work done today. ASSESSMENT AND PLAN: 1. Tricuspid valve endocarditis, methicillin-resistant Staphylococcus aureus bacteremia. This is likely due to IV drug use, cocaine. He is still receiving antibiotics. The plan is to continue with IV vancomycin and rifampin until the blood culture is negative. We repeated the blood culture on the , and it is showing gram-negative rods. Cefepime has been added to his medications. 2. History of hepatitis C, corroborated by laboratory. Gastroenterology department has evaluated this patient, and they will re-evaluate this patient in 6 months if he is not doing drugs. 3. Hyponatremia, resolved. 4. Left arm abscess status post incision and drainage. This seems to be getting better. We have a positive culture that showed methicillin-resistant Staphylococcus aureus from that area. 5. Pulmonary hypertension. Continue to monitor. 6. Polysubstance abuse. Initial urine toxicology showed opiates, amphetamine, and methamphetamine. The patient told me a few days ago that he was using IV cocaine. I have had multiple conversations with this patient about drug use. I explained to him the risks of doing drugs, and I will continue with daily cessation education. This patient seems to be stable. We have a new blood culture that showed gram-negative rods pending sensitivity. In the meantime, he has been placed on cefepime. He had an episode of fever yesterday and a low-grade temperature today. cc: Akira Robert MD
--- NOTE | 2018-12-30 15:09 | GASTROENTEROLOGY PROGRESS NOTE ---
DATE: 12/30/2018 SUBJECTIVE: The patient was resting comfortably. He complained of some nausea. Otherwise, no new complaints. He is feeling better since he was admitted. He is currently being treated for endocarditis and Staphylococcus aureus bacteremia. He has a history of chronic hepatitis C as well. Genotype is pending. His viral load was not very high. The patient tells me that he does not drink alcohol. He does have a history of polysubstance abuse. OBJECTIVE: Today, temperature 98.5 degrees, pulse 99 per minute, breathing at 16, blood pressure 140/91. Abdomen is flat soft, nontender. Bowel sounds audible. Labs reviewed. IMPRESSION: 1. Chronic hepatitis C and Staphylococcus aureus bacteremia, currently on antibiotic. 2. History of polysubstance abuse. PLAN: As far as the chronic hepatitis C goes, he does not need any intervention right at this moment but he needs to follow up in the office and he will be evaluated. He has to be free from any substance abuse at least for 6 months to qualify or to be approved for treatment. At that time, he will be started on treatment. I have advised him to follow up at the office after discharge and at this point, no GI intervention be required. I will sign off and I will be available if needed. Rest of the medical treatment as per team. cc: Hernan Haley MD
[2018-12-30] MEDS ORDERED: MAXIPIME ONE (15:39)
[2018-12-31] MEDS: TORADOL IV PRN ×3 (00:14→22:10)
[2018-12-31] MEDS: VANCOMYCIN 2,000 MG in NS 500 ML IV SCH ×2 (00:14→09:45)
[2018-12-31] MEDS: NS 1,000 ML IV SCH ×2 (05:16→14:49)
[2018-12-31] MEDS: MAXIPIME 1 GM in NS 50 ML IV SCH ×3 (05:17→21:50)
[2018-12-31 07:59] LABS: BASO# 0.06 X1000 (0.0-0.2); BASO% 0.8 % (0.0-0.8); EOS# 0.25 X1000 (0.0-0.7); EOS% 3.3 % (0.0-10.0); HEMOGLOBIN 9.1 g/dL (14.0-18.0); IMM GRAN# 0.04 X1000 (0.0-0.04); IMM GRAN% 0.5 % (0.0-0.5); LYMPH# 1.57 X1000 (1.2-3.4); MCH 28.2 PG (27-31); MCHC 31.4 g/dL (33-37); MCV 89.8 FL (81-99); MONO# 0.69 X1000 (0.11-0.59); MONO% 9.2 % (1.7-9.3); MPV 9.3 FL (7.4-10.4); NEUT# 4.87 X1000 (1.4-6.5); NEUT% 65.2 % (42.2-75.2); PLT 476 X1000 (130-400); RBC 3.23 XMIL (4.7-6.1); RDW 14.7 % (11.5-14.5); WBC 7.48 X1000 (4.8-10.8)
[2018-12-31 08:17] LABS: AGAP 10; BUN 9 mg/dL (8-22); CALCIUM 8.7 mg/dL (8.8-10.2); CHLORIDE 99 mmol/L (98-107); COSMO 272; CREATININE 0.6 mg/dL (0.7-1.2); ESTIMATED GFR > 60; GLUCOSE 94 mg/dL (70-104); POTASSIUM 3.8 mmol/L (3.5-5.1); SODIUM 137 mmol/L (136-145); TCO2 28 mmol/L (25-35)
[2018-12-31] MEDS: RIFAMPIN PO SCH (09:45)
[2018-12-31] MEDS: ATIVAN IV PRN (14:15)
[2018-12-31 18:32] LABS: HEPATITIS C GENOTYPE SEE COMMENTS
[2019-01-01] MEDS: MAXIPIME 1 GM in NS 50 ML IV SCH ×3 (06:00→22:06)
[2019-01-01] MEDS: NS 1,000 ML IV SCH ×4 (06:00→22:09)
[2019-01-01 07:00] LABS: AGAP 10; BUN 8 mg/dL (8-22); CALCIUM 8.7 mg/dL (8.8-10.2); CHLORIDE 99 mmol/L (98-107); COSMO 270; CREATININE 0.6 mg/dL (0.7-1.2); ESTIMATED GFR > 60; GLUCOSE 94 mg/dL (70-104); POTASSIUM 4.3 mmol/L (3.5-5.1); SODIUM 136 mmol/L (136-145); TCO2 27 mmol/L (25-35)
[2019-01-01] MEDS: RIFAMPIN PO SCH (09:08)
[2019-01-01] MEDS: VANCOMYCIN 2,000 MG in NS 500 ML IV SCH ×2 (09:08→22:06)
[2019-01-01] MEDS: ATIVAN IV PRN ×2 (09:17→16:19)
[2019-01-01] MEDS: TORADOL IV PRN ×2 (09:17→16:19)
[2019-01-02] MEDS: NS 1,000 ML IV SCH ×2 (02:47→15:42)
[2019-01-02] MEDS: MAXIPIME 1 GM in NS 50 ML IV SCH ×3 (05:41→22:45)
[2019-01-02] MEDS: RIFAMPIN PO SCH (08:26)
[2019-01-02] MEDS: VANCOMYCIN 2,000 MG in NS 500 ML IV SCH (08:27)
--- NOTE | 2019-01-02 08:42 | PROGRESS NOTE ---
DATE: 12/31/2018 SUBJECTIVE: Mr. Ayala is lying comfortably in bed. He has a new dressing on his left arm. Probably, he has phlebitis there. Blood culture from 12/29/2018 showed Enterobacter cloacae complex. Infectious Disease Department on board, and they put this patient on cefepime. OBJECTIVE: Vital Signs: Temperature 99.4, pulse 107, respiratory rate 16, blood pressure 152/96, and oxygen saturation 98% on room air. HEENT: Normocephalic. No trauma. PERRLA. Neck is supple. No JVD. No masses. Central trachea. Chest: Clear to auscultation. No wheezing or rales. Abdomen is soft. Nontender. Nondistended. No hepatosplenomegaly. Extremities: No edema. No clubbing. No cyanosis. He does have a dressing on his left arm that looks clean but probably has some signs of phlebitis. Neurologic: The patient is alert and oriented times 3. LABORATORY: WBC 7.4, hemoglobin 9.1, hematocrit 29, and platelets 476,000. Sodium 137, potassium 3.8, chloride 99, bicarbonate 28, BUN 9, creatinine 0.6, glucose 94, calcium 8.7. ASSESSMENT AND PLAN: 1. Tricuspid valve endocarditis, MRSA bacteremia, and now Enterobacter cloacae complex bacteremia. This patient has been placed on vancomycin, Rifampin, and cefepime. We will continue with the same management. Likely, this is secondary to IV drug use cocaine. We will continue antibiotics. We will continue following the recommendations of Infectious Disease Department. 2. History of hepatitis C corroborated by Laboratory. Gastroenterology Department has evaluated this patient and they will reevaluate this patient hopefully as an outpatient, but the patient needs to stop doing drugs. 3. Hypernatremia resolved. 4. Left arm abscess status post I D with possible phlebitis. Aware. He has a positive culture that showed MRSA as well in that area. 5. Pulmonary hypertension. Continue to monitor. 6. Polysubstance abuse. Initial toxicology showed opiates, amphetamine and methamphetamine. The patient told me a few days ago that he was using IV cocaine. I have been having multiple conversations with this patient about drug use. I will continue with daily cessation education. 7. We have a new urine toxicology that showed amphetamine that was also present on 12/23/2018. I do not think he is using a medication that can cause the amphetamine result to be positive. I am not quite sure why this is positive though. I am not sure about the 1/2 life, but I do not think it is too long. We will keep an eye on this. Case discussed with Infectious Disease Department. Probably, we need to check his room to see if he is hiding some amphetamines there. I will monitor for now. 8. Again, the case has been discussed with the Infectious Disease Department. cc: Akira Robert MD MTDD
--- NOTE | 2019-01-02 12:03 | GENERAL SURGERY PROGRESS NOTE ---
DATE: 12/31/2018 SUBJECTIVE: The patient has overall been doing well over the weekend. OBJECTIVE: Vital Signs: T-max 99.7 degrees, pulse 86-107, blood pressure 152/96, O2 saturation 98%. General: Awake, alert, oriented x4. No acute distress. Extremities: His left arm was examined. The I and D site is improving. There is minimal swelling and induration and scant seropurulent drainage. No fluctuance. No erythema. The wound is closed up quite a bit. LABORATORY: Reviewed and unremarkable. ASSESSMENT/PLAN: A 28-year-old male with bacteremia, endocarditis, and left arm abscess. He is status post incision and drainage. We will stop the packing of the abscess and just cover with a clean Band-Aid or gauze. cc: Mukul Jones MD
--- NOTE | 2019-01-02 13:10 | INFECTIOUS DISEASE PROGRESS NO ---
DATE: 12/31/2018 PRESENT ILLNESS: The patient has methicillin-resistant Staphylococcus aureus tricuspid valve endocarditis secondary to IV drug abuse. The patient also has active hepatitis C. Recently, a blood culture grew Enterobacter. The repeat blood culture was negative though for methicillin- resistant Staphylococcus aureus. We obtained a drug screen on the patient and it was positive for amphetamines. I checked with the pharmacist to see if any of the medicines that the patient was on had amphetamines in them and if any of the medicines he was taking could give a false-positive drug screen for amphetamines and it turned out that the patient is not being given anything that is an amphetamine and he is not getting anything that would give a false- positive for amphetamine. MEDICATIONS: The patient is on vancomycin and Rifampin. This is day 2 of treatment with day 1 being the first day that the patient's blood culture for methicillin-resistant Staphylococcus aureus was negative. The patient also is on cefepime to treat the Enterobacter bacteremia. Day 1 of treatment with cefepime will be the first day that the patient's repeat blood cultures are negative for Enterobacter. The patient also has an abscess in his left arm, which has been drained where he tried to inject himself with IV medication. Higher up in his left arm, there is also an area of IV site phlebitis. The site is indurated and this possibly could be the source of the Enterobacter bacteremia. PHYSICAL EXAMINATION: Vital signs: Temperature is 100, pulse 107, respirations 16, blood pressure 152/96. General: This is an ill-appearing young male. He is in no acute distress. Head, Eyes, Ears, Nose, and Throat: He can hear my spoken words and see near objects. He does not have any white coating on his tongue. Neck: No neck pain when he moves his neck or head. He does not have any white patches in his mouth. Lungs: Clear to auscultation. Cardiovascular: Heart rate is regular. Extremities: The patient's left arm does have an area of what appears to be phlebitis from an IV site. The patient's left arm abscess dressing is intact, there is less swelling. Neurologic: The patient is alert. He can ambulate. There is no tremor. Integument: The patient has extensive tattoos. I did not see a rash though. The patient does have peeling of his fingers and toes of the skin. LAB AND RADIOLOGY: CBC shows a white count of 7480, hemoglobin 9.1, platelet count 476,000. Creatinine 0.6, GFR is greater than 60. One of the patient's repeat blood cultures grew Enterobacter. ASSESSMENT AND PLAN: 1. Regarding the patient's methicillin-resistant Staphylococcus aureus tricuspid valve endocarditis, I plan to continue vancomycin and Rifampin. 2. As regarding the patient's Enterobacter bacteremia, I plan to continue cefepime. 3. As regarding the patient's hepatitis C, the patient will need to be off of all drugs for 6 months before treatment per Dr. Haley will be started. 4. As regarding the patient's positive drug screen, I have asked Security to come up and search the patient's room for any IV paraphernalia or drugs. COMORBIDITIES: The patient is a drug addict. cc: Juan Carlos Burroughs MD MTDD
--- NOTE | 2019-01-02 19:41 | PROGRESS NOTE ---
DATE: 01/02/2019 INTERVAL HISTORY: The patient remains largely asymptomatic. Afebrile for last several days. Most recent blood cultures from yesterday, no growth to date. No new complaints. No acute events overnight. REVIEW OF SYSTEMS: Twelve point review of systems negative except as per interval history. PHYSICAL EXAMINATION: Vitals: T-max 99.7, pulse 100, respirations 18, blood pressure 156/107. General: No acute distress. Vitals: As above. HEENT: Normocephalic, atraumatic. Moist mucous membranes. Neck: No cervical adenopathy. Cardiovascular: Regular rate and rhythm. No murmurs, rubs, or gallops noted. Pulmonary: Clear to auscultation bilaterally. No wheezing, rales, or rhonchi. Abdomen: Soft, nontender, nondistended. Bowel sounds positive. Extremities: Peripheral pulses intact. No clubbing, cyanosis, or edema. Neurologic: Cranial nerves grossly intact. No focal deficits identified. Psychiatric: Normal mood and affect. Awake, alert, oriented x3. Skin: Numerous tattoos, stable. No rashes or lesions identified. ASSESSMENT AND PLAN: 1. Tricuspid valve endocarditis, MRSA and Enterobacter bacteremia. Patient on vancomycin, rifampin and cefepime. Uncertain if the Enterobacter is a contaminant or not, as it is only in 1 of the 2 bottles for that day, but will defer to Infectious Disease. Most recent blood cultures from yesterday morning remain negative so far. If they remain negative, then hopefully we can consider a PICC line in the next 24 to 36 hours and begin the process of setting him up for home intravenous antibiotics. ID has discussed this with his significant other who plans on monitoring him closely and attempting to ensure that he uses a PICC line only as prescribed. 2. Chronic hepatitis C. Outpatient gastroenterology evaluation once patient has been drug free for 6 months or better. 3. Hyponatremia, resolved on last check. P.o. intake adequate. 4. Left arm abscess. Patient is status post incision and drainage. Culture positive for MRSA. On vancomycin and rifampin, as above. 5. Pulmonary hypertension, stable, monitor. 6. Polysubstance abuse. Patient urine drug screen showed opiates, amphetamines, and methamphetamine. The patient also admits to cocaine use heavily. Had numerous conversations recommending cessation strongly.
[2019-01-03] MEDS: VANCOMYCIN 2,000 MG in NS 500 ML IV SCH (01:20)
[2019-01-03] MEDS: NS 1,000 ML IV SCH (01:21)
[2019-01-03] MEDS: RIFAMPIN PO SCH (09:54)
[2019-01-03] MEDS: MAXIPIME 1 GM in NS 50 ML IV SCH ×2 (09:57→18:23)
--- NOTE | 2019-01-03 10:31 | PROGRESS NOTE ---
DATE: 01/03/2019 Called by the hospital for positive blood cultures. A 28-year-old with history of hepatitis C. Recently left the hospital against medical advice. Presented back to [facility] after they called the hospital. He had positive blood cultures. Patient evaluated there. He has a history of patient having fever, weakness, positive blood culture, and a history of IV drug use. Thought the patient needed to be admitted for further treatment. Due to lack of beds, he was transferred to [facility]. Only significant past medical history is hepatitis C. Does complain of generalized weakness. Positive blood culture. History of drug use with suspected bacteremia. History of hepatitis C. Echocardiogram 12/23/2018: Left ventricular function looked normal. Ejection fraction 55%. No wall motion abnormalities. Right ventricular ventricle normal. Aortic valve 3 cusps normal. Mitral valve opened normally. No valvular dysfunction. Tricuspid valve thickening. Oscillating mass attached to the septal leaflet and the tricuspid valve measures 1.1 cm in length consistent with vegetations. So, the patient being treated for endocarditis. He did have an apparent left arm abscess related to IV drug abuse, and they performed incision and drainage at the bedside. ASSESSMENT AND PLAN: 1. The patient has methicillin-resistant Staphylococcus aureus tricuspid valve endocarditis secondary to intravenous drug use. 2. He has active hepatitis C. Continue p.o. rifampin and vancomycin IV. Day 1 will be treatment first day of negative blood cultures and will need prolonged IV antibiotic treatment. cc: Esdras Rosado MD MTDSuzie
--- NOTE | 2019-01-03 12:41 | Diag Imaging Result Doc PS360 ---
EXAM: CT THORAX/ABD/PELVIS W/WO CON INDICATION: abscess TECHNIQUE: This exam was performed using automated exposure control, adjustment of mA or kV according to patient size, and/or use of iterative reconstruction technique. COMPARISON: None. FINDINGS: CHEST: There are numerous nodules throughout the lung parenchyma bilaterally, many of which exhibit central cavitation. For reference, one of the larger lesions at the right lung base measures up to 3.5 x 2.1 cm axially. One of the larger lesions on the right is in the left upper lobe measuring up to 2.7 x 1.5 cm axially. Given the patient's history of infective endocarditis, these are probably the result of septic emboli. At least no large central pulmonary artery filling defect can be identified. There is no pleural fluid collection and no pneumothorax. The heart appears borderline prominent. No significant mediastinal or hilar lymphadenopathy is appreciated. ABDOMEN/PELVIS: The spleen is enlarged measuring up to 17.4 cm in craniocaudal length. There is no evidence of splenic abscess. The liver is somewhat enlarged as well measuring up to 20.1 cm in craniocaudal and at the midclavicular line. No discrete hepatic mass or abscess is appreciated. There is minimal focal fatty infiltration adjacent to the falciform ligament. The gallbladder, pancreas, adrenal glands, kidneys, and urinary bladder are grossly unremarkable. There is no evidence of focal bowel wall thickening and no bowel obstruction. The remainder of the GI tract is grossly unremarkable. No significant free fluid or free abdominal gas is appreciated. The bony structures are intact. IMPRESSION: 1.Numerous nodules scattered throughout the lung parenchyma, many of which exhibit central cavitation. Given the patient's history of endocarditis, these are probably due to septic emboli. 2.Hepatosplenomegaly. Electronically signed by Heriberto Vallejo 01/03/2019 12:39 PM
--- NOTE | 2019-01-03 15:27 | INFECTIOUS DISEASE PROGRESS NO ---
DATE: 01/03/2019 PRESENT ILLNESS: Patient has methicillin-resistant Staph aureus tricuspid valve endocarditis due to drug abuse. Despite treatment with vancomycin and rifampin, the patient continues to have positive repeat blood cultures for the same organism. The patient also had a positive blood culture for Enterobacter, but on repeat blood cultures, there is no further positive blood culture for Enterobacter. The patient also has an abscess on his left arm which has been drained and he has phlebitis in the left arm which is getting better as is the abscess in the patient's arm that has been drained. Finally, the patient has hepatitis C. MEDICATIONS: The patient is on a combination of IV vancomycin and p.o. rifampin. PHYSICAL EXAMINATION: Vital Signs: Temperature is 98.1 degrees, pulse 99, respirations 18, blood pressure 137/82. General: This is a somewhat ill-appearing and malnourished young male. He is in no acute distress. Head, eyes, ears, nose, and throat: He can hear my spoken words and see near objects. He does not have any white patches on his tongue. Neck: No meningismus. Lungs: Clear to auscultation. Cardiovascular: Regular heart rate. Abdomen: Soft and nontender. Integument: The patient has multiple tattoos. Extremities: The patient's left arm abscess site and the left arm phlebitis site are both getting smaller in size and are not erythematous and they are not tender to light palpation. Neurologic: The patient is alert. He is able to ambulate. There is no tremor. LAB AND X-RAY: There is no new lab or x-ray. ASSESSMENT AND PLAN: The patient has methicillin-resistant Staph aureus tricuspid valve endocarditis. He continues to have positive blood cultures despite getting vancomycin and rifampin. My plan is to obtain a CT scan of the thorax, abdomen and pelvis to see if there is some other focus of infection with Staph aureus that is causing the patient's positive repeat blood cultures. At this time, I do not think that the drained abscess in the patient's left arm and the IV phlebitis in the patient's left arm are causing the patient's repeating positive blood cultures for methicillin-resistant Staph aureus. I am going to draw blood cultures again tomorrow and also I have ordered a CAT scan of the thorax, abdomen and pelvis. If the patient continues to have positive blood cultures for methicillin-resistant Staph aureus and the CAT scan does not show us any other infection that would be causing the repeat positive blood cultures then I am going to send the patient to [facility] with the idea that the patient may require removal of the tricuspid valve in order to clear the bacteremia. COMORBIDITIES: The patient's main comorbidity is that he is a drug addict. cc: Juan Carlos Burroughs MD
[2019-01-03] MEDS: TYLENOL PO PRN (18:23)
--- NOTE | 2019-01-03 22:46 | PROGRESS NOTE ---
DATE: 01/01/2019 INTERVAL HISTORY: The patient remains afebrile since the . No new complaints. No acute events overnight. REVIEW OF SYSTEMS: A 12-point review of systems is negative except as per interval history. LABORATORY DATA: Basic metabolic panel is unremarkable. Blood cultures from December 22 to December 26 positive for methicillin-resistant Staphylococcus aureus. Blood culture on December 29 positive for Enterobacter cloacae. Blood culture from this morning, no growth so far. PHYSICAL EXAMINATION: Vital Signs: T max 99.7, pulse 97, respirations 16, blood pressure 128/79, 02 saturation 99% on room air. General: No acute distress. HEENT: Normocephalic, atraumatic. Moist mucous membranes. Neck: No cervical adenopathy. Cardiovascular: Regular rate and rhythm. No murmurs, rubs, or gallops. Pulmonary: Clear to auscultation bilaterally. No wheezing, rales or rhonchi. Abdomen: Soft, nontender, nondistended. Bowel sounds positive. Extremities: Good peripheral pulses. No clubbing, cyanosis, or edema. Neurologic: Cranial nerves grossly intact. No focal deficits. Psychiatric: Normal mood and affect. Awake, alert and oriented x3. Skin: Extensive tattoos, stable. No new rashes or lesions identified. ASSESSMENT/PLAN: 1. Tricuspid valve endocarditis, methicillin-resistant Staphylococcus aureus bacteremia. Likely due to IV drug abuse. On vancomycin and Rifampin for methicillin-resistant Staphylococcus aureus. Cefepime was added on the when blood cultures returned with Enterobacter. Blood cultures drawn this morning, no growth so far. Fevers do appear to have resolved with the addition of cefepime. Infectious Disease is following and assisting with antibiotics. 2. Chronic hepatitis C. Possible assessment for treatment. The patient remains drug free for 6 months. 3. Hyponatremia, remains resolved. 4. Pulmonary hypertension, stable. No acute issue snf. 5. Polysubstance abuse. Initial toxicology screen with opiates, amphetamine, methamphetamine. The patient also admits to using IV cocaine intermittently. The patient was counseled on the dangers of ongoing IV drug use and the likelihood of recurrent endocarditis and if he continues. Anticipate discharge on home IV antibiotics once blood cultures remain negative and he remains afebrile.
[2019-01-04] MEDS: MAXIPIME 1 GM in NS 50 ML IV SCH ×3 (02:01→18:01)
[2019-01-04] MEDS: ATIVAN IV PRN ×2 (03:14→11:49)
[2019-01-04] MEDS ORDERED: VANCOMYCIN IV PER PHARMACY MISC SCH (04:45)
[2019-01-04] MEDS: NS 1,000 ML IV SCH ×5 (05:03→19:31)
[2019-01-04] MEDS: VANCOMYCIN 2,000 MG in NS 500 ML IV SCH ×2 (05:03→16:40)
[2019-01-04 07:10] LABS: BASO# 0.05 X1000 (0.0-0.2); BASO% 0.7 % (0.0-0.8); EOS# 0.33 X1000 (0.0-0.7); EOS% 4.7 % (0.0-10.0); HEMATOCRIT 27.9 % (42.0-52.0); HEMOGLOBIN 8.8 g/dL (14.0-18.0); LYMPH# 1.46 X1000 (1.2-3.4); LYMPH% 20.9 % (20.5-51.1); MCH 28.7 PG (27-31); MCHC 31.5 g/dL (33-37); MCV 90.9 FL (81-99); MONO# 0.55 X1000 (0.11-0.59); MONO% 7.9 % (1.7-9.3); NEUT% 65.8 % (42.2-75.2); PLT 420 X1000 (130-400); RBC 3.07 XMIL (4.7-6.1); RDW 14.6 % (11.5-14.5); WBC 6.99 X1000 (4.8-10.8)
[2019-01-04 07:57] LABS: AGAP 10; ALB/GLOB RATIO 0.8; ALBUMIN 3.1 g/dL (3.5-5.0); ALKALINE PHOSPHATASE 101 U/L (32-122); BUN 8 mg/dL (8-22); CALCIUM 8.8 mg/dL (8.8-10.2); CHLORIDE 96 mmol/L (98-107); COSMO 268; CREATININE 0.6 mg/dL (0.7-1.2); ESTIMATED GFR > 60; GLUCOSE 129 mg/dL (70-104); GOT 11 U/L (10-34); GPT 15 U/L (10-44); SODIUM 134 mmol/L (136-145); TCO2 28 mmol/L (25-35); TOTAL BILIRUBIN < 0.15 mg/dL (0.20-1.00); TOTAL PROTEIN 7.2 g/dL (6.3-8.3)
--- NOTE | 2019-01-04 09:18 | PROGRESS NOTE ---
DATE: 01/04/2019 SUBJECTIVE: Mr. Ayala complained of some cramping in his lower extremities. I explained that the plan is to see if we can clear his tricuspid valve of vegetation, but if not, we will need to get in touch with cardiac surgery and see about a transfer. OBJECTIVE: Vital Signs: Temperature 98.9 degrees, pulse 98, respirations 18, blood pressure 117/79. HEENT: Pupils are equal and round. LUNGS: Clear in all lung veloz. CARDIOVASCULAR: Regular rhythm and rate without murmur or S3. Urine output almost a little over 6 L. ASSESSMENT AND PLAN: 1. Methicillin-resistant Staphylococcus aureus tricuspid valve endocarditis due to IV drug abuse. Continue vancomycin, rifampin. Continues to have positive 1 out of 2 on the last culture. We will see what this next culture shows. The patient also positive for Enterobacter but on repeat blood cultures no further positive blood culture to identify Enterobacter. Had an abscess in his left arm which has been drained. Has phlebitis of left arm which is getting better. CT scan showed some septic emboli in the lungs. 2. Hepatitis C. We will continue current orders. Gets Atarax 50 mg p.o. q.6 hours p.r.n., Ativan 0.5 mg q.6 hours p.r.n., cefepime 1 g q.8 hours, rifampin 600 mg p.o. daily, and vancomycin 2000 mg IV q.12. cc: Esdras Rosado MD
[2019-01-04] MEDS: RIFAMPIN PO SCH (10:38)
--- NOTE | 2019-01-04 10:39 | INFECTIOUS DISEASE PROGRESS NO ---
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 He also has active hepatitis C. He most recently developed an Enterobacter bacteremia. He has an abscess on his left arm which has been drained and is clearing up. He also has an area on his left arm where he has a phlebitis secondary to having an IV in place there. MEDICATIONS: The patient is on a combination of vancomycin and rifampin to treat the endocarditis and cefepime to treat the patient's Enterobacter bacteremia. PHYSICAL EXAMINATION: Vital Signs: Temperature is 98.2 degrees, pulse 97, respirations 16, blood pressure 128/79. General: This is an ill-appearing young male. He is in no acute distress. Head, eyes, ears, nose, and throat: He can hear my spoken words and see near objects. He does not have any white patches in his mouth. Neck: No meningismus. Lungs: Clear to auscultation. Cardiovascular: Regular heart rate. Abdomen: Soft and nontender. Extremities: The patient's left arm abscess as mentioned above is clearing up well. Patient does have an area IV site phlebitis on the left arm which is slightly less indurated than it was yesterday. Neurologic: The patient is alert. He is able to ambulate. There is no tremor. LAB AND X-RAY: There is no new radiographic study. Repeat blood cultures were drawn today and they obviously are pending. Creatinine is 0.6, GFR is greater than 60. ASSESSMENT AND PLAN: The patient will be treated with a combination of vancomycin and rifampin for endocarditis and he will be treated with cefepime for his Enterobacter bacteremia. As regarding his hepatitis C he will treated by Dr. Haley after the patient is off drugs for 6 months. COMORBIDITY: IV drug abuse. cc: Juan Carlos Burroughs MD MTDD
--- NOTE | 2019-01-04 17:03 | INFECTIOUS DISEASE PROGRESS NO ---
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 He is seen on the most recent CT scan, multiple septic emboli in his lung, some of which have cavitated. The patient also has an Enterobacter bacteremia. He has on his left arm an area of where an abscess was that has been drained and it is clearing up. He also has an area on his left arm where there was a phlebitis and this too is clearing up well. Finally, the patient has hepatitis C. It also should be noted that on a recent drug screen on the patient, while he was in the hospital, it tested positive for amphetamines and the patient is not on any medicine that has amphetamines in it and the patient isn't on any medication that can give a false positive for amphetamine. Therefore, I assume that he is getting drugs while in the hospital and the 1 person that who would be doing it would be his who periodically visits him. The patient also had an Enterobacter bacteremia, but his blood cultures have cleared on that organism while they have not cleared for methicillin-resistant Staph aureus. MEDICATIONS: The patient is on vancomycin and rifampin. Since the patient's blood cultures are still positive, even though he is on those medications he is not even at day 1, because day 1 is the first day that the blood cultures are negative and so far his blood cultures remain positive for methicillin-resistant Staph aureus. As regarding the Enterobacter bacteremia, this is day 3 of cefepime since it was 3 days ago that the patient's blood cultures for Enterobacter turn negative. PHYSICAL EXAMINATION: Vital Signs: Temperature is 98.9 degrees, pulse 98, respirations 18, blood pressure 117/79. General: This is a somewhat ill-appearing young male. He is in no acute distress. Head/eyes/ears/nose/throat: He can hear my spoken words and see near objects. There is no drainage coming from his nose or ears. He does not have any white patches on his tongue. Neck: No meningismus. Lungs: Clear to auscultation. Cardiovascular: Regular heart rate. Abdomen: Soft and nontender. Extremities: The patient's left arm had an area that there was an abscess that is been drained. Also, there was an area where there was a septic phlebitis. Both of these infections have almost completely cleared and I doubt that they are reason that the patient continues to have positive blood cultures. Neurologic: Patient is alert. He can move his extremities. There is no tremor. Integument: The patient has multiple tattoos. LABORATORIES AND X-RAY: Creatinine is 0.6. GFR is greater than 60. Liver function studies are normal. CBC shows a white count of 6990, hemoglobin 8.8, and platelet count 420,000. CT scan of the thorax, abdomen and pelvis shows multiple nodules, some with cavitation throughout the patient's lungs and also hepatosplenomegaly. ASSESSMENT AND PLAN: The patient continues to have methicillin-resistant Staph aureus endocarditis and he still has positive blood cultures. I have repeated his blood cultures today and if they are still positive, I plan to transfer the patient to a center that has cardiac surgery. The once most closest would be [facility] or [facility] or [place]. I think that given that the patient's blood cultures remain positive for methicillin-resistant Staph aureus, the only treatment that I can think of it would be that is a he would have to have his tricuspid valve removed. As regarding the patient's Enterobacter bacteremia that does appear to be clearing and I plan to continue his cefepime for a total of 14 days. As regarding the patient's multiple nodules with cavitation, I think this is due to a septic emboli from the tricuspid valve and thus the antibiotics that are trying to treat the endocarditis also are trying to treat the lung infection, but it is not successful at this time. COMORBIDITIES: The main one is that he is a drug attic and I think he appears to be continuing even in the hospital. It should be noted that I ask the hospital security service to search the patient's room and they did and they did not find any evidence of illicit drugs. cc: Juan Carlos Burroughs MD
[2019-01-05] MEDS: MAXIPIME 1 GM in NS 50 ML IV SCH ×3 (02:20→15:52)
[2019-01-05] MEDS: VANCOMYCIN 2,000 MG in NS 500 ML IV SCH ×2 (04:23→17:45)
[2019-01-05] MEDS: NS 1,000 ML IV SCH ×2 (04:25→15:51)
[2019-01-05] MEDS: RIFAMPIN PO SCH (08:37)
[2019-01-05] MEDS: ATIVAN IV PRN (08:45)
--- NOTE | 2019-01-05 11:07 | PROGRESS NOTE ---
DATE: 01/05/2019 SUBJECTIVE: He is complaining of cramping in his legs. Also, we have been alternating his IV out and changing it from arm to arm, continue IV antibiotics. He remains afebrile. OBJECTIVE: Vital signs: Temperature 98.5 degrees, pulse 100, respirations 12, blood pressure 128/88. HEENT: Pupils are equal and round. Lungs: Clear in all lung veloz. Cardiovascular: Regular rhythm and rate without murmur or S3. Genitourinary: Urine output is 8100 mL, so good urine output. ASSESSMENT AND PLAN: Methicillin-resistant Staphylococcus aureus tricuspid valve endocarditis. Most recent CT scan showed multiple septic emboli in lung, some of which have cavitated. He also has a culture positive for Enterobacter bacteremia. He had an area of abscess in the left arm which was drained, and he had some phlebitis there as well, which appears to be clearing up. The patient has a history of hepatitis C. It should be noted, recent drug screen, the patient, while he was in the hospital, tested positive for amphetamines. PLAN: So the plan is to, as soon as he has negative cultures, he has 2 blood cultures drawn 01/04/2019, there are pending. Last culture set on 01/01/2019, 1 out of 2 grew out Staphylococcus aureus. If these cultures do not clear, we are going to have to pursue cardiac surgery and possible tricuspid valve replacement, and we are also going to have to pursue IV access for prolonged antibiotics. Given his history of IV drug abuse, this may pose a challenge as well. So continue current orders. He is on rifampin 600 mg a day, cefepime 1 g q.8 and Vancomycin at 2000 mg IV q.12. cc: Esdras Rosado MD
[2019-01-06] MEDS: ATIVAN IV PRN ×2 (00:07→06:37)
[2019-01-06] MEDS: MAXIPIME 1 GM in NS 50 ML IV SCH ×3 (01:04→23:43)
[2019-01-06] MEDS: VANCOMYCIN 2,000 MG in NS 500 ML IV SCH ×2 (04:35→17:55)
[2019-01-06] MEDS: RIFAMPIN PO SCH (08:51)
--- NOTE | 2019-01-06 10:09 | INFECTIOUS DISEASE PROGRESS NO ---
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 He also has multiple septic emboli in his lungs. Also, the patient earlier had an Enterobacter bacteremia. The patient on his left arm has an abscess which has been drained and is clearing up. Likewise, he has areas of phlebitis from IV vancomycin infusions. Finally, the patient has hepatitis C. MEDICATIONS: Patient is on vancomycin, rifampin and cefepime. PHYSICAL EXAMINATION: Vital Signs: Temperature is 98 degrees, pulse 98, respirations 20, blood pressure 152/96. General: This is an ill-appearing young male. He is in no acute distress. Head/eyes/ears/nose/throat: He can hear my spoken words and he can see near objects and hear my spoken words. Neck: No meningismus. Lungs: Clear to auscultation. Cardiovascular: Regular heart rate. Abdomen: Soft and nontender. Neurologic: Patient is alert. He can move his extremities. There is no tremor. Extremities: The IV sites and the drained abscess on his arms are improving. LABORATORY DATA: There is no new lab today except that the patient's blood cultures are sterile at 48 hours. There is no new x-ray for today. He is on vancomycin and rifampin to treat his methicillin-resistant Staphylococcus aureus endocarditis with pneumonia with septic emboli. He also is on cefepime to treat the Enterobacter bacteremia. ASSESSMENT AND PLAN: The patient's blood cultures have cleared. Therefore, he will have 40 more days of treatment with vancomycin and rifampin with day #1 being the first day that the patient's blood cultures are sterile. The patient will have 8 more days of cefepime to complete treatment for the Enterobacter bacteremia. The patient also has hepatitis C. Dr. Abreu is in charge of taking care of that. The patient's areas of phlebitis in his arm and abscess are clearing up well. The plan is now to have a PICC placed and have him go home on IV vancomycin and p.o. rifampin and IV cefepime. The durations of treatment are 40 days for the vancomycin and rifampin, and 8 days for the cefepime. I am putting a request in to have the patient come to my office at 3 weeks and then again at 6 weeks at which time we will stop his antibiotics hopefully and take out his PICC. I did discuss with the patient that he should not use his IV for drugs and he said he would not. In addition, I am going to be getting blood work on the patient including CBC with diff, creatinine, hepatic function, vancomycin level, and drug screen. Also chest x- ray and if needed CT scan will be obtained. COMORBIDITIES: Patient is a drug addict. cc: Juan Carlos Burroughs MD MTDD
--- NOTE | 2019-01-06 15:13 | PROGRESS NOTE ---
DATE: 01/06/2019 He still complains of having some leg cramps. He did have a little bit itching when he gets the vancomycin. His cultures are negative. Last set of cultures from 01/04 so that is encouraging. We are going to get a PICC line and set him up to go home with IV antibiotics. He grew out methicillin-resistant Staphylococcus aureus in the tricuspid valve endocarditis, multiple septic emboli in his lungs as well as other areas. The patient also had earlier had Enterobacter bacteremia. His left arm had an abscess which was drained and is clearing up so he will be on vancomycin, rifampin and cefepime. Plan is to get a PICC line placed to go home on IV antibiotics, p.o. rifampin, IV cefepime, IV vancomycin. Duration of treatment for 40 days with vancomycin, rifampin and 8 days for cefepime and follow up in Dr. Burroughs' office so will see if we can get those arrangements done after PICC line tomorrow. EXAM: Today temperature 98 degrees, pulse 98, respirations 24, blood pressure 140/90. Pupils are equal.Lungs: Clear in all lung veloz. Cardiovascular: Regular rhythm and rate without murmur or S3. Urine output was over 5 L. cc: Esdras Rosado MD
[2019-01-06] MEDS: NS 1,000 ML IV SCH ×2 (17:56→23:44)
[2019-01-07] MEDS: ATIVAN IV PRN (01:56)
[2019-01-07] MEDS: VANCOMYCIN 2,000 MG in NS 500 ML IV SCH (06:05)
[2019-01-07 06:32] LABS: BASO# 0.13 X1000 (0.0-0.2); BASO% 1.7 % (0.0-0.8); EOS# 0.62 X1000 (0.0-0.7); EOS% 8.2 % (0.0-10.0); HEMATOCRIT 30.6 % (42.0-52.0); HEMOGLOBIN 9.8 g/dL (14.0-18.0); LYMPH# 1.28 X1000 (1.2-3.4); LYMPH% 16.9 % (20.5-51.1); MCH 28.7 PG (27-31); MCV 89.5 FL (81-99); MONO# 0.51 X1000 (0.11-0.59); MONO% 6.7 % (1.7-9.3); MPV 8.7 FL (7.4-10.4); NEUT# 5.04 X1000 (1.4-6.5); NEUT% 66.5 % (42.2-75.2); PLT 406 X1000 (130-400); RBC 3.42 XMIL (4.7-6.1); RDW 14.5 % (11.5-14.5); WBC 7.58 X1000 (4.8-10.8)
[2019-01-07 06:37] LABS: INR 1.02; PROTIME 14.2 Seconds (11.0-16.0)
[2019-01-07] MEDS ORDERED: NS 250 ML ONE (08:08)
[2019-01-07] MEDS: MAXIPIME 1 GM in NS 50 ML IV SCH (09:28)
[2019-01-07] MEDS: RIFAMPIN PO SCH (09:28)
[2019-01-07 11:44] VITALS: BP 150/99
--- NOTE | 2019-01-07 13:42 | DISCHARGE SUMMARY ---
ADMISSION DATE: 12/23/2018 DISCHARGE DATE: HOSPITAL COURSE: He has no primary care physician. He was called by the hospital. He had positive blood cultures. A 28-year-old with a history of hepatitis C, recently left the hospital against medical advice, presented back to [facility] after he called the hospital with positive blood cultures. The patient was evaluated there and due to history of having fever, weakness, positive blood cultures, history of IV drug use, he thought he needed to come back in. Presented back to [facility]. Only past medical history is hepatitis C, history of IV drug use. The patient had cultures obtained and an echocardiogram done on 12/23/2018. Left ventricular function was normal. Tricuspid valve was abnormal, showed thickening with oscillating mass attached to the septal leaflet of the tricuspid valve, measured 1.1 cm in length and 0.4 cm with width, consistent with a vegetation. Started on broad-spectrum antibiotics. Blood cultures revealed methicillin-resistant Staphylococcus aureus. First blood culture on 12/22/2018 was positive for Staph aureus and was methicillin-resistant. He had subsequent blood cultures obtained. He was put on vancomycin as well as broader spectrum regimen. Infectious Disease was consulted on 12/23/2018. He continued on vancomycin. They checked an HIV screen and continued his antibiotic regimen. He had an abscess form on his arm. Extremity ultrasound, palpable lesion in the left forearm, complex cystic lesion that turned out to be internal debris and septation, and this was excised, drained. This abscess on his left arm probably was from suspected where he injected himself IV drugs. It was drained on 12/26/[address] Mukul Jones. He had chest, abdominal, pelvic CT done. Numerous nodules scattered throughout the lung parenchyma many of which exhibits central cavitation and suspect these are septic emboli. He had mild hepatosplenomegaly. Blood cultures were obtained again on 12/23/2018, on 12/25/2018, and 12/29/2018. One of them did grow Enterobacter cloacae. The rest were Staph aureus. One out of two cultures grown on 01/01/2019 showed gross Staph aureus. Next set of cultures on 01/04/2019, had no growth and so the concern was if we could not get sterile cultures, I would have to pursue getting his tricuspid valve taken out by cardiac surgery, but the culture was negative. So the plan is he had a PICC line placed. He will need 40 more days of treatment with vancomycin IV and rifampin p.o. He will have to get that as an outpatient, the first day sterile for culture. The patient will need 8 more days of cefepime to complete treatment for Enterobacter bacteremia. The patient also has hepatitis C. He will follow up with Dr. Haley for treatment of hepatitis C. PICC line placed and 40 more days of vancomycin and p.o. rifampin as well as 8 more days of cefepime lined up. So we will discharge him home. He will need to follow up with Dr. Burroughs, and for his hepatitis C, follow up with Dr. Haley. cc: Esdras Rosado MD
[2019-01-07] MEDS: NS 1,000 ML IV SCH (13:58)
== END 2019-01-07 17:05 | disposition home or self-care (01) | DRG 871 ==
LOC: P.ED 19:30 → 3S 19:30 → SUATTDRO 12-23 01:45 → OBSVTOIN 12-23 01:45 → 3S 12-24 14:33 → 4N 12-28 12:03
PROVIDERS: ATTEND Emergency Medicine
CPT/HCPCS: 36569; 71010; 71020; 71045; 71046; 71270; 74178; 76882; 80048; 80053; 80074; 80101; 80104; 80202; 80301; 80305; 80307; 80324; 80345; 80346; 80353; 80358; 80361; 80365; 81001; 82550; 82565; 83605; 83735; 83992; 84484; 85025; 85027; 85610; 85730; 86701; 87040; 87070; 87077; 87088; 87186; 87389; 87522; 87902; 93005; 93010; 93306; 93312; 96365; 96366; 96368; 96375; 99285; 99291; A9270; G0431; G0434; G0477; G0479; G0480; J0690; J0692; J1885; J2060; J2405; J3370; J7030; J7040; J7050; Q9967

== ENCOUNTER 2019-02-01 07:57 | Inpatient (IN) ==
[~2019-02-01 07:57] MED LIST: MOTRIN PO ONE; TYLENOL PO ONE
[2019-02-01] MEDS ORDERED: NS 1,000 ML ONE (08:03)
[2019-02-01] MEDS ORDERED: NS 1,000 ML IV ONE ×3 (08:06→11:23)
[2019-02-01 08:18] LABS: BASO# 0.01 X1000 (0.0-0.2); BASO% 0.3 % (0.0-0.8); EOS# 0.59 X1000 (0.0-0.7); EOS% 15.4 % (0.0-10.0); HEMATOCRIT 30.4 % (42.0-52.0); HEMOGLOBIN 10.2 g/dL (14.0-18.0); LYMPH% 15.7 % (20.5-51.1); MCH 28.7 PG (27-31); MCHC 33.6 g/dL (33-37); MCV 85.6 FL (81-99); MONO# 0.03 X1000 (0.11-0.59); MONO% 0.8 % (1.7-9.3); MPV 9.3 FL (7.4-10.4); NEUT% 67.8 % (42.2-75.2); PLT 241 X1000 (130-400); RBC 3.55 XMIL (4.7-6.1); RDW 14.8 % (11.5-14.5); WBC 3.83 X1000 (4.8-10.8)
[2019-02-01 08:27] LABS: INR 0.95; PROTIME 13.2 Seconds (11.0-16.0)
[2019-02-01 08:28] LABS: PTT 31.3 Seconds (22.3-41.8)
--- NOTE | 2019-02-01 08:33 | PROVIDER DOCUMENTATION ---
HPI-Fever - General Chief Complaint: Fever Stated Complaint: GENERAL PAIN Time Seen by Provider: 02/01/19 08:21 Source: patient Allergies/Adverse Reactions: Patient Allergies Allergy/AdvReac Type Severity Reaction Status Date / Time No Known Allergies Allergy Verified 12/22/18 19:39 Home Medications: Home Medication List Medication Instructions Recorded Confirmed Last Taken Type Rifampin 600 mg PO DAILY 40 Days #80 cap 01/06/19 Unknown Rx - History of Present Illness-Fever Nature of Presenting Problem: 6 week hx of staph endocarditis on tricuspid with backgroud of hepatitis c on vancomycin septra and rifampin Fever Severity/Quality: reports: greater than 100.5 F Onset/Duration: reports: this morning Timing: reports: still present Severity: reports: moderate Context: reports: indwelling CVC (endocarditis) Fever Therapy [employer]: Initiated none Cognitive Baseline: alert, oriented x3 Modifying Factors: improves with: nothing Associated Symptoms: reports: fever/chills, weakness Similar Symptoms Previously?: Yes Recently seen or treated by another doctor?: Yes Review of Systems - Adult - REVIEW OF SYSTEMS - ADULT Constitutional: reports: chills, fever Eyes: reports: no symptoms reported Ears, Nose, Mouth & Throat: reports: no symptoms reported Cardiovascular: denies: chest pain Respiratory: denies: cough, shortness of breath Gastrointestinal: reports: no symptoms reported Genitourinary: reports: no symptoms reported Musculoskeletal: reports: muscle aches Integumentary: reports: other (cellulitis) Neurological: reports: no symptoms reported Psychiatric: reports: no symptoms reported Endocrine: reports: no symptoms reported Hematologic/Lymphatic: reports: low blood count Allergic/Immunologic: reports: no symptoms reported Past History - Adult - PAST MEDICAL HISTORY-ADULT Review of Records: reports: Nursing Assessment Review, Medications Reviewed, Social history reviewed & non-contributory. Cardiovascular: reports: other (endocarditis) Respiratory: reports: denies history Gastrointestinal: reports: hepatitis Genitourinary: reports: denies history Neurological: reports: denies history Psychiatric: reports: denies history Endocrine/Immune: reports: anemia - PRIOR SURGERIES/PROCEDURES Surgical/Procedure History: reports: none - SOCIAL HISTORY Smoking: denies Physical Exam-General - PHYSICAL EXAM-ADULT Initial Vital Signs Reviewed: Yes - CONSTITUTIONAL General Appearance: mild distress - EYES Eyes: PERRL/EOMI - HEAD, EARS, NOSE, MOUTH & THROAT HENMT: normocephalic/atraumatic, pharynx normal - NECK Neck: non-tender, full range of motion, supple - RESPIRATORY Respiratory: lungs clear - CARDIOVASCULAR Cardiovascular: tachycardia, systolic murmur - GASTROINTESTINAL (ABDOMEN) Abdominal Exam: normal bowel sounds, non tender, soft - LYMPHATIC Lymphatic: no adenopathy - MUSCULOSKELETAL Back Exam: normal inspection, no CVA tenderness Extremity: normal range of motion, non-tender Peripheral Pulses: dorsalis-pedis (R): 2+, dorsalis-pedis (L): 2+ - SKIN Integumentary: erythema, tenderness - NEUROLOGIC Neurologic: grossly normal - PSYCHIATRIC Psych/Mental Status: oriented x 3 Progress - PLAN OF CARE/RESULTS Progress/Plan/Lab Results: Vital Signs - 8 hr 02/01/19 07:54 Temperature 101.5 F H Pulse Rate 141 H Respiratory Rate 19 Blood Pressure 160/098 O2 Sat by Pulse Oximetry 99 Laboratory Results - last 24 hr 02/01/19 02/01/19 02/01/19 08:04 08:04 08:04 WBC 3.83 L RBC 3.55 L Hgb 10.2 L Hct 30.4 L MCV 85.6 MCH 28.7 MCHC 33.6 RDW Std Deviation 14.8 H Plt Count 241 MPV 9.3 Immature Gran % (Auto) 0.0 Neut % (Auto) 67.8 Lymph % (Auto) 15.7 L Tompkins % (Auto) 0.8 L Eos % (Auto) 15.4 H Baso % (Auto) 0.3 Immature Gran # (Auto) 0.00 Neut # (Auto) 2.60 Lymph # (Auto) 0.60 L Tompkins # (Auto) 0.03 L Eos # (Auto) 0.59 Baso # (Auto) 0.01 PT 13.2 INR 0.95 PTT (Actin FS) 31.3 Plasma Lactate 1.5 Orders Category Date Time Status Cardiac Monitoring DIRECTED Care 02/01/19 08:03 Active IV Insertion ORDERED Care 02/01/19 08:03 Completed Notify MD of + Sepsis Screen NOW Care 02/01/19 08:03 Active Notify Physician As Ordered Care 02/01/19 08:03 Active CHEST-1 VIEW [RAD] Stat Exams 02/01/19 08:03 Ordered BLOOD CULTURE [BLDCUL] Stat Lab 02/01/19 08:03 Uncollected CBC WITH DIFF [HEME] Stat Lab 02/01/19 08:04 Completed CK PROFILE [SP CHEM] Stat Lab 02/01/19 08:04 Received COMPREHENSIVE METABOLIC PANEL [CHEM] Stat Lab 02/01/19 08:04 Received LACTATE, PLASMA [CHEM] Lab 02/01/19 11:15 Uncollected LACTATE, PLASMA [CHEM] Lab 02/01/19 14:15 Uncollected LACTATE, PLASMA [CHEM] Stat Lab 02/01/19 08:04 Received PROTIME WITH INR [COAG] Stat Lab 02/01/19 08:04 Received PTT [COAG] Stat Lab 02/01/19 08:04 Received TROPONIN T Stat Lab 02/01/19 08:[address] W/POSS RFLX CULT [URINALYSIS] Stat Lab 02/01/19 08:03 Uncollected 0.9% Sodium Chloride Inj [Ns] 1,000 ml Med 02/01/19 08:03 Discontinued .ROUTE As directed 0.9% Sodium Chloride Inj [Ns] 1,000 ml Med 02/01/19 08:06 Active IV 999 mls/hr Acetaminophen [Tylenol] Med 02/01/19 07:57 Discontinued 650 mg PO NOW ONE Ibuprofen [Motrin] Med 02/01/19 07:57 Discontinued 600 mg PO NOW ONE Oxygen Device Stat Oth 02/01/19 08:03 Active Transfer/Admit Order [TRANSFER] Routine Transfer 02/01/19 08:31 Ordered Result Diagrams: 02/01/19 08:04 Departure - Departure Date of Disposition Decision: 02/01/19 Time of Disposition Decision: 08:41 DIAGNOSIS: Substance abuse, Fever, Staphylococcal sepsis, Endocarditis of tricuspid valve Disposition: ADMITTED INPATIENT 09 Certified Medical Emergency: Emergent Condition: Stable - Critical Care Note This patient required my direct & personal management of CC.: No Attestation - Physician/ MOUNIKA Attestation Patient care was provided by Advanced Practice Provider:: No The physician spent face to face time with patient:: Yes Advanced Practice Provider documentation review:: Supervising physician onsite and consulted in the evaluation and care of this patient. The physician did have a face to face encounter with the patient.
[2019-02-01 08:34] LABS: POTASSIUM 3.9 mmol/L (3.5-5.1); SODIUM 136 mmol/L (136-145)
[2019-02-01 08:35] LABS: AGAP 10; ALBUMIN 3.8 g/dL (3.5-5.0); ALKALINE PHOSPHATASE 116 U/L (32-122); BUN 10 mg/dL (8-22); CALCIUM 8.3 mg/dL (8.8-10.2); CHLORIDE 99 mmol/L (98-107); CK PROFILE 162 U/L (24-204); COSMO 271; CREATININE 0.5 mg/dL (0.7-1.2); ESTIMATED GFR > 60; GLUCOSE 99 mg/dL (70-104); GOT 35 U/L (10-34); GPT 27 U/L (10-44); TCO2 27 mmol/L (25-35); TOTAL PROTEIN 6.6 g/dL (6.3-8.3)
--- NOTE | 2019-02-01 08:37 | Diag Imaging Result Doc PS360 ---
EXAM: CHEST-1 VIEW - 02/01/2019 HISTORY: sepsis protocol TECHNIQUE: Portable chest one view COMPARISON: 08/01/2018 FINDINGS: Heart size is normal. There has been interval decrease in basilar infiltrates/atelectasis. The lungs now appear essentially clear. There is been apparent resolution of the prior small bilateral pleural effusions. There is no pneumothorax identified. There is a PICC which enters from the left and has its tip at the superior vena cava. IMPRESSION: No evidence of acute disease. Electronically signed by Eb Bedolla 02/01/2019 8:35 AM
[2019-02-01] MEDS ORDERED: MAXIPIME 2 GM/NS 2 GM/100 ML IVPB IV SCH (09:00)
[2019-02-01 09:48] LABS: BILIRUBIN URINE NEGATIVE (NEGATIVE); BLOOD URINE 4+ (NEGATIVE); GLUCOSE URINE NEGATIVE (NEGATIVE); KETONE URINE NEGATIVE (NEGATIVE); LEUKOCYTES URINE TRACE (NEGATIVE); NITRITE URINE POSITIVE (NEGATIVE); PH URINE 6.5; PROTEIN URINE TRACE mg/dL (NEGATIVE); UROBILINOGEN URINE NORMAL
[2019-02-01 09:51] LABS: CLARITY SLIGHTLY CLOUDY (CLEAR); COLOR AMBER; URINE BACTERIA 4+ /HFP; URINE CRYSTAL CA OXALATE PRESENT /HPF; URINE EPITHELIAL CELLS <10 /HPF (<10); URINE RBC 20-40 /HPF (<10); URINE SOURCE CLEAN CATCH; URINE WBC <10 /HPF (<10)
[2019-02-01 09:59] LABS: UR AMPHETAMINES QUAL NONE DETECTED (NONE DETECT); UR BARBITUATES QUAL NONE DETECTED (NONE DETECT); UR BENZODIAZEPIN QUAL PRESUMPTIVE POSITIVE (NONE DETECT); UR CANNABINOIDS QUAL NONE DETECTED (NONE DETECT); UR COCAINE QUAL NONE DETECTED (NONE DETECT); UR METHADONE QUAL NONE DETECTED (NONE DETECT); UR METHAMPHETAMINE QUAL NONE DETECTED (NONE DETECT); UR OPIATES QUAL NONE DETECTED (NONE DETECT); UR OXYCODONE QUAL NONE DETECTED (NONE DETECT); UR PCP QUAL NONE DETECTED (NONE DETECT); UR PROPOXYPHENE QUAL NONE DETECTED (NONE DETECT); UR TCA QUAL NONE DETECTED (NONE DETECT)
[2019-02-01] MEDS ORDERED: VANCOMYCIN IV PER PHARMACY MISC SCH ×2 (10:30→11:23)
[2019-02-01] MEDS ORDERED: TYLENOL PO PRN (11:23)
[2019-02-01] MEDS ORDERED: ZOFRAN IV PRN (11:23)
--- NOTE | 2019-02-01 12:28 | HISTORY AND PHYSICAL ---
PRIMARY CARE PROVIDER: None. CHIEF COMPLAINT: Generalized pain. 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 Patient has increase generalized pain and his right lower leg extremity has redness, warmth, and pain to palpation. He states that he has had previous leg pain when he was being treated for endocarditis. The patient also has a temperature of 101.5 degrees, and was admitted to the emergency room for a heart rate of 141, respiratory rate of 19, blood pressure was 160/98, and 99% on room air. PAST MEDICAL HISTORY: 1. Endocarditis. 2. Hepatitis. 3. Substance abuse. PAST SURGICAL HISTORY: None. SOCIAL HISTORY: Denies smoking, alcohol, or drug use. Presently, lives with . FAMILY HISTORY: Includes his dad being positive for CAD. ALLERGIES: No known drug allergies. MEDICATIONS: Include rifampin, vancomycin, and Septra. REVIEW OF SYSTEMS: genreal: fever and chills generalized pain.HEENT: Patient denies headaches, vision changes, dizziness, or neck pain. Endocrine: Denies excessive thirst, urination, or heat intolerance. Cardiovascular: denies chest pain or palpitations. Respiratory: denies cough or shortness of breath. GI: denies nausea or vomiting. : denies any urinary burning, urgency, or frequency. Musculoskeletal: c/o of muscle aches and pains. Neurologic: denies syncope, dizziness or tremors. Hematological: Denies bruising. Psychiatric: anxiety Skin: Cellulitis to right lower extremity with pain on palpation. LABORATORY: WBCs currently 3.83, hemoglobin and hematocrit 10.2 and 30.4, and platelets of 241,000. PT of 13.2, INR 0.95, PTT of 31.3. Sodium 136, potassium 3.9, chloride 99, BUN of 10, and creatinine of 0.5. Calcium is 8.3. AST is 35 with ALT of 27. Troponin is negative. Plasma lactate of 1.5. Chest x-ray shows no acute evidence of disease. Blood cultures upon transfer. UDS not obtained at this time. PHYSICAL EXAMINATION: VITAL SIGNS: Temperature of 101.5 degrees, pulse rate 124, respiratory rate 18, BP 142/79, and 98% on room air. GENERAL: This is a 28-year-old male. HEENT: Normocephalic. PERRLA. Mucous membranes are moist. NECK: No lymphadenopathy. Trachea is midline. No JVD noted. CARDIOVASCULAR: Rate and rhythm is regular and tachycardic. No murmurs, gallops, or rubs are noted. RESPIRATORY: Lungs clear to auscultation to all veloz. Nonlabored respirations. GI: Abdomen is soft and palpable x4 quadrants with bowel sounds present x4 quadrants. NEUROLOGIC: Cranial nerves 2 through 12 grossly intact. MUSCULOSKELETAL: 5/5. Able to move all extremities. SKIN: Redness, warmth and pain on palpation to left lower extremity ASSESSMENT AND PLAN: We will transfer to [facility] with diagnosis substance abuse, fever, Staphylococcus sepsis, and endocarditis of the tricuspid valve. Upon transfer, obtain cardiac monitoring. Monitor and notify MD and assess the sepsis protocol. Blood cultures, UA, UDS, lactate. We will medicate with Cefepime 2 g q.8 hours upon transfer. Further recommendations will be pending per response to therapy. Dictated by NAHUN Cneteno for Dillon Oliver MD cc: Dillon Oliver MD [facility]
[2019-02-01] MEDS: VANCOMYCIN 2 GM in NS 500 ML IV SCH (13:44)
--- NOTE | 2019-02-01 13:55 | PROGRESS NOTE ---
DATE: 02/01/2019 SUBJECTIVE: He was transferred here from [place]. This is 28-year-old. He has had a history of 6 weeks of staph endocarditis, and the background of hepatitis C. I believe it is tricuspid endocarditis. He has been on vancomycin, Septra and rifampin. The patient has been doing well by his report until a couple of days ago he started noticing some pain really generalized over his body, and had been in the right lower extremity with some redness and warmth, and pain to palpation. He denies taking any IV illicit drugs or any other substance. PAST MEDICAL HISTORY: 1. Endocarditis, tricuspid valve. 2. Hepatitis. 3. Substance abuse, and IV drug use. Hepatitis is hepatitis C. He was admitted. We will need to look at his valve again and re-culture, and look at the right leg to make sure this isn't septic emboli. We probably will need to get a CT of his chest and look and see if there is any new sign of septic emboli. His blood work was reviewed. White count 3830, hematocrit 30,and platelet count 241,000. Chemistry: Sodium 136, potassium 3.9, chloride 99, BUN 10, creatinine 0.5, and transaminases AST mildly elevated at 35, ALT was 27, and calcium 8.3. ASSESSMENT AND PLAN: We will check a Chem 22 again in the morning with a magnesium. We will check a C-reactive protein and a sedimentation rate. We will consult Dr. Burroughs. He is going to get a venous ultrasound, and probably will need to get a transthoracic echocardiogram. We will try and get that this afternoon just to look for any further sign of vegetations. We are going to continue his present antibiotics of vancomycin and cefepime, and look and see what the culture data shows. cc: Esdras Rosado MD
[2019-02-01] MEDS ORDERED: TORADOL IV PRN (13:58)
--- NOTE | 2019-02-01 15:37 | EKG Report ---
Test Performed on : 02/01/2019 3:25:54 PM Test Reason : endocarditis Blood Pressure : / mmHG Vent. Rate : 067 BPM Atrial Rate : 067 BPM P-R Int : 148 ms QRS Dur : 092 ms QT Int : 398 ms P-R-T Axes : 034 021 029 degrees QTc Int : 420 ms Normal sinus rhythm. Normal ECG When compared with ECG of 23-DEC-2018 09:19, Vent. rate has decreased BY 34 BPM Confirmed by Cameron Henao MD ([id number]) on 02/03/2019 8:38:35 PM
--- NOTE | 2019-02-01 17:00 | EKG Report ---
Test Performed on : 02/01/2019 08:02:39 AM Test Reason : CP Blood Pressure : / mmHG Vent. Rate : 134 BPM Atrial Rate : 134 BPM P-R Int : 134 ms QRS Dur : 086 ms QT Int : 300 ms P-R-T Axes : 061 062 058 degrees QTc Int : 448 ms Sinus tachycardia. Possible Left atrial enlargement Borderline ECG When compared with ECG of 23-DEC-2018 09:19, No significant change was found Unconfirmed Result
--- NOTE | 2019-02-01 17:16 | INFECTIOUS DISEASE PROGRESS NO ---
DATE: 02/01/2019 PRESENT ILLNESS: The patient is being treated for a Methicillin resistant Staphylococcus aureus tricuspid valve endocarditis with associated septic emboli. The patient earlier had an Enterobacter bacteremia. The patient also, on his arms, had areas where there was an abscess which was drained and some areas where there was phlebitis. The patient also has hepatitis C. MEDICATIONS: The patient at home was receiving a combination of vancomycin and rifampin. PHYSICAL EXAMINATION: Temperature was 102, now it is 98.4, pulse 90, respirations 14, blood pressure 120/70. Generally: This is an ill appearing young male. He is in no acute distress. Head/eyes/ears/nose/throat: He can hear my spoken words and see near objects. He does not have any white patches in his mouth. Neck: No meningismus. Lungs: Clear to auscultation. Cardiovascular: Regular heart rate. Abdomen: Soft and nontender. Integument: Patient has multiple tattoos. Extremities: The patient has a PICC in his left upper extremity. On the right leg there is an area of erythema. The redness is a very light red in color. There is just a little bit of swelling and it is not tender to the patient either. Neurologic: At first the patient seemed confused but now he is oriented and can carry on a conversation. LABORATORY DATA: CBC shows a white count of 3830, hemoglobin 10.2, and platelet count is 241,000. Creatinine is 0.5. GFR is greater than 60. Liver function studies were normal except for an AST of 35. The drug screen was positive for benzodiazepines. Chest x-ray showed no acute disease. ASSESSMENT AND PLAN: The patient is being treated currently for Methicillin resistant Staphylococcus aureus tricuspid valve endocarditis with associated septic emboli. He has two weeks left of treatment to complete a six week course. I plan to continue both vancomycin and rifampin. The patient had earlier finished his treatment with cefepime for the Enterobacter bacteremia. Now, we have restarted cefepime because the patient has a fever. Therefore, our antibiotics currently will be vancomycin, rifampin, and cefepime. We are waiting for the results of repeat blood cultures. As mentioned above, the patient has two more weeks left to treat his endocarditis. He already has finished treatment of his Enterobacter infection. COMORBIDITIES: The patient is a drug addict. cc: Juan Carlos Burroughs MD [facility]
[2019-02-01] MEDS: MAXIPIME 2 GM/NS 2 GM/100 ML IVPB IV SCH (18:09)
--- NOTE | 2019-02-01 20:09 | HISTORY AND PHYSICAL ---
HISTORY OF PRESENT ILLNESS/PLAN: The patient is a 28-year-old, unfortunately IV drug user, who has had a prolonged course for endocarditis of his tricuspid valve, which is reasonable. Apparently, he had a 1.1 x 0.4 vegetation and it was positive for MRSA. He has been discharged on vancomycin and cefepime. He has had abscesses drained in the past. In any case, he has been on IV antibiotics at home, and he came in with a fever of 101.5. He was tachycardic when he first came in and seems to be stable up and down. White count is 3.8. Urine is positive for nitrites. In any case, patient has stabilized. Unclear where his fever source is. He does have some pain, swelling, and erythema in his right lower extremity, which may be a new lesion such as septic embolization. I will rule out DVT. We will continue empiric antibiotics. He has been on vancomycin and we will continue cefepime, and I guess rifampin for the time being. We will get Dr. Burroughs to re-evaluate the patient, and follow up on blood and urine cultures, which not sure. We will continue to follow. This is a service admission, seen with Yajaira Chen. cc: Dillon Oliver MD
[2019-02-02] MEDS: VANCOMYCIN 2 GM in NS 500 ML IV SCH ×2 (00:01→14:48)
--- NOTE | 2019-02-02 00:20 | INFECTIOUS DISEASE PROGRESS NO ---
DATE: 02/01/2019 ADDENDUM: The patient had a chest x-ray today. The chest x-ray shows no acute disease. cc: Juan Carlos Burroughs MD
[2019-02-02] MEDS: MAXIPIME 2 GM/NS 2 GM/100 ML IVPB IV SCH ×3 (02:00→17:33)
[2019-02-02] MEDS ORDERED: LOVENOX SUBQ SCH (06:00)
[2019-02-02 06:25] LABS: BASO# 0.01 X1000 (0.0-0.2); BASO% 0.3 % (0.0-0.8); EOS# 0.69 X1000 (0.0-0.7); EOS% 19.1 % (0.0-10.0); HEMATOCRIT 31.9 % (42.0-52.0); HEMOGLOBIN 10.3 g/dL (14.0-18.0); LYMPH# 1.07 X1000 (1.2-3.4); LYMPH% 29.6 % (20.5-51.1); MCH 28.3 PG (27-31); MCHC 32.3 g/dL (33-37); MCV 87.6 FL (81-99); MONO# 0.36 X1000 (0.11-0.59); MONO% 9.9 % (1.7-9.3); MPV 10.1 FL (7.4-10.4); NEUT# 1.49 X1000 (1.4-6.5); NEUT% 41.1 % (42.2-75.2); PLT 192 X1000 (130-400); RBC 3.64 XMIL (4.7-6.1); RDW 15.2 % (11.5-14.5); WBC 3.62 X1000 (4.8-10.8)
[2019-02-02 06:53] LABS: AGAP 8; ALB/GLOB RATIO 1.1; ALBUMIN 3.2 g/dL (3.5-5.0); ALKALINE PHOSPHATASE 97 U/L (32-122); BUN 9 mg/dL (8-22); CALCIUM 8.4 mg/dL (8.8-10.2); CHLORIDE 103 mmol/L (98-107); COSMO 279; CREATININE 0.6 mg/dL (0.7-1.2); ESTIMATED GFR > 60; GLUCOSE 149 mg/dL (70-104); GOT 30 U/L (10-34); GPT 26 U/L (10-44); POTASSIUM 3.9 mmol/L (3.5-5.1); SODIUM 139 mmol/L (136-145); TCO2 28 mmol/L (25-35); TOTAL BILIRUBIN < 0.15 mg/dL (0.20-1.00); TOTAL PROTEIN 6.2 g/dL (6.3-8.3)
--- NOTE | 2019-02-02 09:16 | PROGRESS NOTE ---
DATE: 02/02/2019 SUBJECTIVE: He remains afebrile. OBJECTIVE: Temperature 97.9 degrees, pulse 70, respirations 18, and blood pressure 149/94. Pupils are equal and round. Lungs are clear in all lung veloz. Cardiovascular regular rhythm and rate without murmur or S3. Urine output was 2800 mL. ASSESSMENT AND PLAN: 1. Being currently treated for methicillin-resistant Staphylococcus aureus in the tricuspid valve endocarditis and associated septic emboli. He had 2 weeks left on treatment for 6 week course. We are going to continue his vancomycin and rifampin. We have cultures pending. The patient had earlier finished treatment of cefepime for the Enterobacter bacteremia. Now, we have restarted cefepime and awaiting cultures. So, currently he is on vancomycin, rifampin and cefepime. The patient on his arms had areas of abscess which were drained previously, and areas where there is phlebitis. 2. He has hepatitis C aware. Continue present orders. 3. He has Toradol for pain 30 mg IV q.6 hours. cc: Esdras Rosado MD
[2019-02-02 15:20] VITALS: BP 135/81
--- NOTE | 2019-02-02 20:39 | Extremity Venous Study ---
PROCEDURE NAME: Venous U/S Bilateral Legs - 02/01/2019 REQUESTING PHYSICIAN: Dr. Dillon Oliver. MULE OPERATOR: Sabrina. INDICATIONS: Redness and swelling of bilateral legs. EQUIPMENT: [employer] Vivid E9 ultrasound system with a 9 L-D transducer. FINDINGS: Images of the bilateral lower extremity venous systems were obtained in both sagittal and transverse planes. Doppler was used to evaluate veins for spontaneity, phasicity, respiratory excursion, and digital augmentation. RESULTS: Normal venous compression, normal venous flow, no obvious superficial or deep venous thrombosis noted, INTERPRETATION: Essentially normal bilateral lower extremity venous study. cc: MD Dillon Sethi MD
== END 2019-02-02 17:00 | disposition left against medical advice (07) | DRG 871 ==
LOC: P.ED 07:57 → 3S 09:08 → SUATTDRO 09:08 → 3S 02-02 09:57
PROVIDERS: ATTEND Emergency Medicine
CPT/HCPCS: 71010; 71045; 80053; 80104; 80301; 80305; 81001; 82550; 83605; 84484; 85025; 85610; 85730; 87040; 87077; 87088; 87186; 93005; 93010; 93970; 94760; A9270; G0431; G0434; G0477; J0692; J1650; J3370; J7030; J7040

== ENCOUNTER 2019-03-01 02:24 | Inpatient (IN) ==
[2019-03-01] MEDS ORDERED: VANCOMYCIN 1 GM/NS 1 GM/250 ML IVPB IV ONE (02:58)
--- NOTE | 2019-03-01 03:01 | PROVIDER DOCUMENTATION ---
HPI-General Adult - General Chief Complaint: General Adult Stated Complaint: ENDOCARDITIS REFERRED BY OFFICE Time Seen by Provider: 03/01/19 02:34 Source: patient Allergies/Adverse Reactions: Patient Allergies Allergy/AdvReac Type Severity Reaction Status Date / Time No Known Allergies Allergy Verified 03/01/19 03:41 Home Medications: Home Medication List Medication Instructions Recorded Confirmed Last Taken Type NK [No Home Medications] 03/01/19 03/01/19 Unknown History - History of Present Illness -Gen Adult Nature of Presenting Problems: Pt presents with "endocarditis" pt was recently diagnosed with endocarditis from IVDU, was admitted and got IV abx, pt was discharged on PO abx but never filled the prescriptions, has been lost to f/u over the last several weeks, pt called pcp and was told to come back in to the hospital, pt reports some generalized weakness and cp, pt denies f/c, quintanilla, sob, cough, ap, n/v/d. Pt has still been using IV heroin over the last couple of weeks, pt is lying in bed in no acute distress. Location of Pain/Injury: reports: chest Pain Radiation: reports: no radiation Quality of Pain: reports: aching Severity: reports: mild Onset/Duration: reports: unsure Timing: reports: still present Context/Activities at Onset: reports: none Modifying Factors: improves with: nothing Associated Symptoms: reports: denies symptoms Similar Symptoms Previously?: Yes Recently seen or treated by another doctor?: Yes Review of Systems - Adult - REVIEW OF SYSTEMS - ADULT Constitutional: reports: no symptoms reported Eyes: reports: no symptoms reported Ears, Nose, Mouth & Throat: reports: no symptoms reported Cardiovascular: reports: see HPI Respiratory: reports: no symptoms reported Gastrointestinal: reports: no symptoms reported Genitourinary: reports: no symptoms reported Musculoskeletal: reports: no symptoms reported Integumentary: reports: no symptoms reported Neurological: reports: no symptoms reported Psychiatric: reports: no symptoms reported Endocrine: reports: no symptoms reported Hematologic/Lymphatic: reports: no symptoms reported Allergic/Immunologic: reports: no symptoms reported All Other Systems: Reviewed and Negative Past History - Adult - PAST MEDICAL HISTORY-ADULT Review of Records: reports: Old Records Reviewed, Nursing Assessment Review, Medications Reviewed, Social history reviewed & non-contributory. Major Childhood Illnesses: reports: denies history Cardiovascular: reports: denies history, other (endocarditis) Respiratory: reports: denies history Gastrointestinal: reports: hepatitis Obstetrical/Gynecological: reports: denies history Genitourinary: reports: denies history Musculoskeletal: reports: denies history Neurological: reports: denies history Psychiatric: reports: denies history Endocrine/Immune: reports: anemia Other Conditions: reports: denies history - PRIOR SURGERIES/PROCEDURES Surgical/Procedure History: reports: none Physical Exam-General - PHYSICAL EXAM-ADULT Initial Vital Signs Reviewed: Yes - CONSTITUTIONAL General Appearance: appears well - EYES Eyes: PERRL/EOMI - HEAD, EARS, NOSE, MOUTH & THROAT HENMT: normal ENT inspection - NECK Neck: normal inspection - RESPIRATORY Respiratory: lungs clear, no respiratory distress, no accessory muscle use - CARDIOVASCULAR Cardiovascular: regular rate, rhythm - GASTROINTESTINAL (ABDOMEN) Abdominal Exam: normal bowel sounds, non tender, soft - LYMPHATIC Lymphatic: no adenopathy - MUSCULOSKELETAL Back Exam: normal inspection Extremity: normal range of motion - SKIN Integumentary: normal color - NEUROLOGIC Neurologic: grossly normal - PSYCHIATRIC Psych/Mental Status: normal mood/affect Progress - PLAN OF CARE/RESULTS Progress/Plan/Lab Results: Vital Signs - 8 hr 03/01/19 02:30 Temperature 98.0 F Pulse Rate 100 H Respiratory Rate 18 Blood Pressure 150/80 O2 Sat by Pulse Oximetry 100 Orders Category Date Time Status Nursing- Obtain EKG ONCE Care 03/01/19 02:56 Ordered cxr [CHEST-1 VIEW] [RAD] Stat Exams 03/01/19 02:56 Ordered BLOOD CULTURE [BLDCUL] Stat Lab 03/01/19 02:56 Uncollected CBC WITH ELECTRONIC DIFF [HEME] Stat Lab 03/01/19 02:56 Uncollected COMPREHENSIVE METABOLIC PANEL [CHEM] Stat Lab 03/01/19 02:56 Uncollected TROPONIN T Stat Lab 03/01/19 02:56 Uncollected Vancomycin 1 gm IV Now Med 03/01/19 02:58 Ordered Vancomycin 1 gm/Ns 1 gm in 250 ml IV NOW EKG [EKG] Stat Ther 03/01/19 02:56 Ordered Result Diagrams: 03/01/19 03:14 03/01/19 03:14 Departure - Departure Date of Disposition Decision: 03/01/19 Time of Disposition Decision: 04:23 DIAGNOSIS: Endocarditis Qualifiers: Endocarditis type: unspecified Chronicity: acute Qualified Code(s): I33.9 - Acute and subacute endocarditis, unspecified Disposition: ADMITTED INPATIENT 09 Certified Medical Emergency: Emergent Condition: Stable Referrals and Follow-Ups: None,PCP [Primary Care Provider] - - Critical Care Note This patient required my direct & personal management of CC.: No Attestation - Physician/ MOUNIKA Attestation Patient care was provided by Advanced Practice Provider:: No The physician spent face to face time with patient:: Yes Advanced Practice Provider documentation review:: Supervising physician onsite and consulted in the evaluation and care of this patient. The physician did have a face to face encounter with the patient.
[2019-03-01 03:31] LABS: BASO# 0.03 X1000 (0.0-0.2); BASO% 0.4 % (0.0-0.8); EOS# 0.05 X1000 (0.0-0.7); EOS% 0.6 % (0.0-10.0); HEMATOCRIT 34.4 % (42.0-52.0); LYMPH# 1.51 X1000 (1.2-3.4); LYMPH% 19.3 % (20.5-51.1); MCH 27.3 PG (27-31); MCV 85.4 FL (81-99); MONO# 0.35 X1000 (0.11-0.59); MONO% 4.5 % (1.7-9.3); MPV 9.9 FL (7.4-10.4); NEUT# 5.87 X1000 (1.4-6.5); NEUT% 75.2 % (42.2-75.2); PLT 298 X1000 (130-400); RBC 4.03 XMIL (4.7-6.1); RDW 14.3 % (11.5-14.5); WBC 7.81 X1000 (4.8-10.8)
--- NOTE | 2019-03-01 04:04 | EKG Report ---
Test Performed on : 03/01/2019 03:22:54 AM Test Reason : chest pain Blood Pressure : / mmHG Vent. Rate : 077 BPM Atrial Rate : 077 BPM P-R Int : 148 ms QRS Dur : 092 ms QT Int : 400 ms P-R-T Axes : 040 023 037 degrees QTc Int : 452 ms Normal sinus rhythm. Normal ECG When compared with ECG of 01-FEB-2019 15:25, No significant change was found Unconfirmed Result
[2019-03-01 04:13] LABS: AGAP 9; ALB/GLOB RATIO 1.5; ALBUMIN 4.4 g/dL (3.5-5.0); ALKALINE PHOSPHATASE 100 U/L (32-122); BUN 13 mg/dL (8-22); CALCIUM 9.5 mg/dL (8.8-10.2); CHLORIDE 96 mmol/L (98-107); COSMO 268; CREATININE 0.7 mg/dL (0.7-1.2); ESTIMATED GFR > 60; GLUCOSE 90 mg/dL (70-104); GOT 44 U/L (10-34); GPT 33 U/L (10-44); POTASSIUM 4.1 mmol/L (3.5-5.1); SODIUM 134 mmol/L (136-145); TCO2 29 mmol/L (25-35); TOTAL BILIRUBIN 0.49 mg/dL (0.20-1.00); TOTAL PROTEIN 7.3 g/dL (6.3-8.3)
[2019-03-01] MEDS ORDERED: ATIVAN IV PRN (06:41)
[2019-03-01] MEDS ORDERED: TYLENOL PO PRN (06:41)
[2019-03-01] MEDS ORDERED: ZOFRAN IV PRN (06:41)
[2019-03-01] MEDS ORDERED: VANCOMYCIN IV PER PHARMACY MISC SCH (06:41)
--- NOTE | 2019-03-01 07:21 | Diag Imaging Result Doc PS360 ---
EXAM: CHEST-1 VIEW INDICATION: chest pain TECHNIQUE: One view COMPARISON: 02/01/2019 FINDINGS: The lungs are grossly clear. There is no discrete pleural fluid collection or pneumothorax. The cardiomediastinal silhouette and central vasculature are grossly unremarkable. IMPRESSION: No evidence of acute pathology by plain radiograph. Electronically signed by Heriberto Vallejo 03/01/2019 7:18 AM
[2019-03-01] MEDS: NS 1,000 ML IV SCH ×2 (08:42→17:24)
[2019-03-01] MEDS: LOVENOX SUBQ SCH (08:43)
[2019-03-01] MEDS: VANCOMYCIN 2,000 MG in NS 500 ML IV SCH ×2 (09:56→20:39)
[2019-03-01 11:15] LABS: UR AMPHETAMINES QUAL PRESUMPTIVE POSITIVE (NONE DETECT); UR BARBITUATES QUAL NONE DETECTED (NONE DETECT); UR BENZODIAZEPIN QUAL NONE DETECTED (NONE DETECT); UR CANNABINOIDS QUAL NONE DETECTED (NONE DETECT); UR COCAINE QUAL NONE DETECTED (NONE DETECT); UR OPIATES QUAL PRESUMPTIVE POSITIVE (NONE DETECT)
[2019-03-01 11:16] LABS: UR METHADONE QUAL NONE DETECTED (NONE DETECT); UR OXYCODONE QUAL NONE DETECTED (NONE DETECT); UR PCP QUAL NONE DETECTED (NONE DETECT)
--- NOTE | 2019-03-01 20:31 | HISTORY AND PHYSICAL ---
CHIEF COMPLAINT: Endocarditis. HISTORY OF PRESENT ILLNESS: This is a 28-year-old male with a history of substance abuse, hepatitis C and endocarditis. From what I understand, he has not completed any of his treatment regimens. He has been on vancomycin, Septra, and rifampin. The patient I believe left against medical advice and did not finish his treatment course the last time he was admitted last month. He returns today stating that he did not get any of his prescriptions filled and he has not followed up in several weeks, so the PCP told him to come back to the hospital. He did report some generalized weakness and chest pain. He denied any fever, chills, headaches, shortness of breath, cough, nausea or vomiting, diarrhea. He had still be using IV drugs, I believe heroin and maybe methamphetamine. At any rate, he will be admitted for further evaluation and treatment. PAST MEDICAL HISTORY: See HPI. PREVIOUS SURGICAL HISTORY: None. SOCIAL HISTORY: He denies tobacco. Uses IV drugs. Denies alcohol. Lives with his . FAMILY HISTORY: Positive for coronary artery disease in his father. ALLERGIES: No known drug allergies. HOME MEDICATIONS: No home medications. REVIEW OF SYSTEMS: A 14-point review of systems was conducted with the patient. Pertinent positives are listed above in the HPI. All other systems are reviewed and found to be negative. PHYSICAL EXAMINATION: VITAL SIGNS: Temperature 98 degrees, pulse 100, respirations 18, blood pressure 150/80, oxygen saturation 100% on room air. GENERAL: A 28-year-old male lying on the ER stretcher; is in no acute distress. HEENT: Head is atraumatic, normocephalic. Pupils equal, round and reactive to light. Extraocular eye movements intact. Sclerae anicteric. Conjunctivae are pink. Oral mucosa is moist. NECK: Supple. No JVD. No thyromegaly. Trachea is midline. No cervical lymphadenopathy. CARDIAC: S1, S2 appreciated. No murmurs, rubs or gallops. LUNGS: Clear to auscultation bilaterally. No rales, rhonchi or wheezes. Symmetric rise and fall with respirations. ABDOMEN: Soft, nontender, nondistended. Bowel sounds present in all 4 quadrants; normoactive. No pulsatile masses. No organomegaly. EXTREMITIES: No clubbing, cyanosis or edema. 2+ pedal pulses bilaterally. GENITOURINARY: No bladder distention. Patient voids. Otherwise deferred. NEUROLOGICAL: Alert and oriented x 3. No focal motor deficits. Otherwise nonfocal examination. DIAGNOSTIC DATA: Chest x-ray grossly unremarkable. EKG shows normal sinus rhythm, rate 77. LABORATORY DATA: WBC 7.81, hemoglobin 11, hematocrit 34.4, platelet count 298. Sodium 134, potassium 4.1, chloride 96, carbon dioxide 29, BUN 13, creatinine 0.7, glucose 90. Toxicology screen positive for opiates and amphetamines. ASSESSMENT AND PLAN: 1. Endocarditis. We will start vancomycin. Blood cultures are pending. 2. Substance abuse. We will give Ativan 1 mg IV q. 4 hours p.r.n. agitation. 3. Mild fluid volume depletion. We will rehydrate gently over the next few days. Recheck laboratory data. 4. Anemia of chronic disease. Aware. 5. Further recommendations depending on patient's clinical course. Dictated by NAHUN Lepe for René Greenfield MD I have performed a face to face diagnostic evaluation. Labs/ Xrays- reviewed. Exam- chest- clear, CV- regular. A/P- Endocarditis- Admit, IV ABX, check blood culture. Dr. Greenfield cc: NAHUN Lepe MD [facility]
[2019-03-02 06:15] LABS: BASO# 0.03 X1000 (0.0-0.2); BASO% 0.6 % (0.0-0.8); EOS% 6.3 % (0.0-10.0); HEMATOCRIT 34.7 % (42.0-52.0); HEMOGLOBIN 11.1 g/dL (14.0-18.0); LYMPH# 1.63 X1000 (1.2-3.4); MCH 27.6 PG (27-31); MCV 86.3 FL (81-99); MONO# 0.39 X1000 (0.11-0.59); MONO% 8.1 % (1.7-9.3); MPV 10.1 FL (7.4-10.4); NEUT# 2.44 X1000 (1.4-6.5); PLT 261 X1000 (130-400); RBC 4.02 XMIL (4.7-6.1); RDW 14.6 % (11.5-14.5); WBC 4.79 X1000 (4.8-10.8)
[2019-03-02 06:42] LABS: AGAP 7; BUN 13 mg/dL (8-22); CALCIUM 8.3 mg/dL (8.8-10.2); CHLORIDE 102 mmol/L (98-107); COSMO 275; CREATININE 0.6 mg/dL (0.7-1.2); ESTIMATED GFR > 60; GLUCOSE 93 mg/dL (70-104); POTASSIUM 3.9 mmol/L (3.5-5.1); SODIUM 138 mmol/L (136-145); TCO2 29 mmol/L (25-35)
[2019-03-02] MEDS: NS 1,000 ML IV SCH ×2 (06:48→21:08)
[2019-03-02] MEDS: VANCOMYCIN 2,000 MG in NS 500 ML IV SCH ×2 (09:48→21:08)
[2019-03-02] MEDS: LOVENOX SUBQ SCH (09:50)
--- NOTE | 2019-03-02 11:00 | PROGRESS NOTE ---
DATE: 03/02/2019 SUBJECTIVE: Patient reports feeling fine. Denies any fever or chills. OBJECTIVE: Vital Signs: Temperature 98.1 degrees, heart rate 63, respiratory rate 19, blood pressure 133/84, O2 saturation 100% on room air. General: This is a chronically ill-appearing and somewhat malnourished, 28-year-old male, lying in bed, in no acute distress. Cardiovascular: S1, S2 heard. No murmurs, gallops, or rubs. Regular rate and rhythm. Respiratory: Clear bilaterally to auscultation. No work of breathing or using accessory muscles. Peripheral pulses present in both legs. Neurological: Patient is alert and oriented x3. Moves 4 extremities. LABORATORY DATA: Blood culture is still pending. ASSESSMENT AND PLAN: 1. Endocarditis. History of noncompliance. Patient has been started on vancomycin. Last time he was here, he left the hospital AMA with his PICC line and apparently he was using it to use drugs. At this point, he was recommended to come to the emergency department because he did not finish his treatment for endocarditis. Blood culture has been ordered at this time. We will continue with that medication and awaiting blood cultures. 2. Heroin abuse. The patient is a current and active IV drug abuser and his drug of choice is heroin. We will provide Ativan IV p.r.n. for agitation. 3. Anemia of chronic disease. Aware. 4. History of hepatitis C. Aware. 5. Disposition. We will continue to monitor this patient closely. Awaiting results of blood cultures. cc: Ash Boss MD
[2019-03-03] MEDS: LOVENOX SUBQ SCH (08:43)
[2019-03-03] MEDS: NS 1,000 ML IV SCH ×2 (08:50→18:26)
[2019-03-03] MEDS: VANCOMYCIN 2,000 MG in NS 500 ML IV SCH ×2 (10:13→21:14)
--- NOTE | 2019-03-03 10:54 | PROGRESS NOTE ---
DATE: 03/03/2019 SUBJECTIVE: The patient reports feeling fine. Denies any nausea, vomiting, or fever. OBJECTIVE: Vital Signs: Temperature 97.4 degrees, heart rate 75, respiratory rate 17, blood pressure 132/72, O2 saturation 100% on room air. General Examination: This is a chronically ill- appearing and somewhat malnourished 28-year-old male, lying in bed, in no acute distress. Cardiovascular: S1, S2 heard. No murmurs, gallops, or rubs. Regular rate and rhythm. Respiratory: Clear bilaterally to auscultation. No work of breathing or using accessory muscles. Abdomen: Soft, nontender to palpation. Bowel sounds present. No organomegaly. Extremities: No clubbing, cyanosis, or edema. Peripheral pulses present in both legs. Neurological: Patient alert and oriented x3. Moves all 4 extremities. LABORATORY DATA: Blood cultures showed no growth on day 2 of blood cultures. ASSESSMENT AND PLAN: 1. Endocarditis with history of noncompliance. The patient is on vancomycin right now. There is nothing growing in the blood cultures at this time. Last time he was here, apparently patient left AMA with a PICC line that was using for drugs. At this point, I prefer to have Dr. Burroughs on board to see for how long he still needs to be on IV antibiotics. At this point, patient is stable. We will see when we need to remove this PICC line because of potential use for IV drugs or not. In any case, we will appreciate Dr. Burroughs's expertise. 2. Heroin abuse. Patient is a current active IV drug abuser. The last time that he used it was 2 days before admission. His drug of choice is heroin. At this point, we will provide Ativan p.r.n. to agitation only. 3. Anemia of chronic disease. Aware. 4. History of hepatitis C. Aware. 5. We will continue to monitor this patient closely. We will try to come up with a plan with Infectious Disease. We will go from there. cc: Ash Boss MD
--- NOTE | 2019-03-03 13:39 | INFECTIOUS DISEASE PROGRESS NO ---
DATE: 03/03/2019 PRESENT ILLNESS: The patient called my office and told my nurse practitioner that he was having fever and chills. The nurse practitioner and I discussed the case and we called in some antibiotics for him to have at the end of last week and the patient said he could not afford getting the antibiotics and he was directed then to go to the emergency room and from there he was admitted to the hospital. 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 Patient said that he had completed 40 days of IV antibiotic, namely vancomycin, for his tricuspid valve endocarditis. The patient had been however very noncompliant. The patient told me that he in the past 2 weeks he had difficulty passing his urine but it does not burn or sting. His urine had a foul odor. He did not complain of a cough or diarrhea or skin rash. MEDICATIONS: Patient is on IV vancomycin. PHYSICAL EXAMINATION: Vital Signs: Temperature is 97.4 degrees, pulse 75, respirations 17, blood pressure 132/72. General: This is a somewhat ill-appearing young male. He is in no acute distress. Head, eyes, ears, nose, and throat: He can hear my spoken words and see near objects. He does not have any white patches in his mouth. Neck: No meningismus. Lungs: Clear to auscultation. Cardiovascular: Regular heart rate. No murmur was heard. Abdomen: Soft and nontender. Neurologic: The patient is alert. He can move his extremities. There is no tremor. His sensation is intact to touch. His memory as regarding his medical history appears to be intact. Integument: Patient has multiple tattoos. LAB AND X-RAY: Chest x-ray shows no pulmonary infiltrates. The patient's drug screen is positive for opiates and amphetamine. Blood cultures are negative. Liver function studies are normal. Creatinine is 0.6. GFR is greater than 60. CBC shows a white blood cell count of 4790, hemoglobin 11.1, and platelet count 261,000. ASSESSMENT AND PLAN: The patient may have a return of his endocarditis or possibly some other infection due to intravenous drug abuse such as bacteremia. The patient may have a urinary tract infection. My plan is to continue vancomycin as has been started by Dr. Conn. I have ordered a urinalysis and a urine culture. I have also ordered an echocardiogram. The patient's blood cultures do show no growth at 48 hours. COMORBIDITIES: The patient is an IV drug abuser. cc: Juan Carlos Burroughs MD MTDSuzie
--- NOTE | 2019-03-04 07:08 | INFECTIOUS DISEASE PROGRESS NO ---
DATE: 03/04/2019 HISTORY OF PRESENT ILLNESS: The patient was admitted the hospital. He was having fever and chills, the exact etiology of which is uncertain to me. MEDICATIONS: The patient is on IV vancomycin. PHYSICAL EXAMINATION: Vital Signs: Temperature 98 degrees, pulse 85, respirations 20, blood pressure 133/69. General: This is a somewhat ill-appearing young male who is in no acute distress. Head, eyes, ears, nose, and throat: Can hear my spoken words and see near objects. He does not have any white coating of his tongue. Neck: No pain with movement. Lungs: Clear to auscultation. Cardiovascular: Heart rate is regular. No murmur is heard. Abdomen: Soft and nontender. Neurologic: The patient is awake. He is able to ambulate. There is no tremor. Integument: The patient has multiple tattoos. I did not see any rashes. LABS: Blood cultures are negative at 48 hours. I have requested a urinalysis and urine culture, but the patient did not give a specimen yesterday, so I told him to do it now and he should be getting the specimen now. IMAGING STUDIES: I have also ordered an echocardiogram for today, which has not yet been done. ASSESSMENT AND PLAN: The cause of the patient's fever and chills that he had is uncertain to me. His blood cultures are negative at 48 hours, so I do not think he has had a return of his endocarditis or any other type of bacteremia. He is going to get an echocardiogram today. If the vegetations are not getting any bigger or newer, then I doubt he is he has active endocarditis also. The urinalysis should tell us if the patient has a urinary tract infection. The patient told me that he was having difficulty passing his urine and it had an odor, so possibly he has a urinary tract infection causing his fever and chills. As mentioned above, I am waiting for the urinalysis and urine culture. Also, if any of the blood cultures that were negative, make sure that they have not turned positive. Also, I am waiting for the echocardiogram to make sure the vegetation is not getting any bigger. If all of those things are negative, then I think the patient can be discharged today on no antibiotic. COMORBIDITIES: The patient is an IV drug abuser. cc: Juan Carlos Burroughs MD
[2019-03-04 07:32] LABS: BASO# 0.05 X1000 (0.0-0.2); BASO% 1.1 % (0.0-0.8); EOS# 0.22 X1000 (0.0-0.7); EOS% 4.9 % (0.0-10.0); HEMATOCRIT 35.9 % (42.0-52.0); HEMOGLOBIN 11.6 g/dL (14.0-18.0); LYMPH# 1.43 X1000 (1.2-3.4); LYMPH% 31.8 % (20.5-51.1); MCH 27.6 PG (27-31); MCHC 32.3 g/dL (33-37); MCV 85.3 FL (81-99); MONO# 0.24 X1000 (0.11-0.59); MONO% 5.3 % (1.7-9.3); NEUT# 2.55 X1000 (1.4-6.5); NEUT% 56.9 % (42.2-75.2); PLT 304 X1000 (130-400); RBC 4.21 XMIL (4.7-6.1); RDW 14.1 % (11.5-14.5); WBC 4.49 X1000 (4.8-10.8)
[2019-03-04 07:40] LABS: URINE SOURCE VOIDED
[2019-03-04 07:47] LABS: BILIRUBIN URINE NEGATIVE (NEGATIVE); BLOOD URINE NEGATIVE (NEGATIVE); COLOR STRAW; GLUCOSE URINE NEGATIVE (NEGATIVE); KETONE URINE NEGATIVE (NEGATIVE); PH URINE 6.5; SP GRAVITY URINE 1.009; TURBIDITY URINE CLEAR (CLEAR)
[2019-03-04 07:48] LABS: LEUKOCYTES URINE NEGATIVE (NEGATIVE); NITRITE URINE NEGATIVE (NEGATIVE); PROTEIN URINE NEGATIVE (NEGATIVE); UROBILINOGEN URINE NORMAL (NORMAL)
[2019-03-04 07:50] LABS: UR EPITHELIAL CELLS <10 /HPF (<10); URINE BACTERIA NEGATIVE /HPF; URINE RBC <10 /HPF (<10); URINE WBC <10 /HPF (<10)
[2019-03-04 08:10] LABS: AGAP 9; BUN 12 mg/dL (8-22); CALCIUM 9.3 mg/dL (8.8-10.2); CHLORIDE 102 mmol/L (98-107); COSMO 279; CREATININE 0.6 mg/dL (0.7-1.2); ESTIMATED GFR > 60; GLUCOSE 89 mg/dL (70-104); POTASSIUM 4.2 mmol/L (3.5-5.1); SODIUM 140 mmol/L (136-145); TCO2 29 mmol/L (25-35)
[2019-03-04] MEDS: VANCOMYCIN 2,000 MG in NS 500 ML IV SCH (09:26)
[2019-03-04] MEDS: LOVENOX SUBQ SCH (09:26)
--- NOTE | 2019-03-04 13:22 | ECHO REPORT ---
ORDER DATE: 03/04/2019 INDICATION: Endocarditis. FINDINGS: 1. The right atrium appears normal in size. 2. Mild tricuspid regurgitation. There continues to be a vegetation adherent to what appears to be the septal leaflet of the tricuspid valve. It oscillates back into the right atrium. Visualization of the vegetation is not completely adequate for assessing the size. 3. Normal RV size and systolic function. 4. Mild pulmonic insufficiency. 5. Left atrium appears normal in size. 6. No mitral valve prolapse. Mild mitral regurgitation. 7. Normal LV size, end-diastolic dimension of 5 cm. Normal wall thicknesses with a posterior and interventricular septal wall thickness of 1.0 cm each. Normal LV systolic function. Estimated EF of 55% with normal wall motion. 8. Aortic valve opens well. It is trileaflet. No evidence of stenosis or insufficiency. 9. Aorta appears normal in visualized segments. 10. No pericardial effusion seen. cc: MD Juan Carlos Bacon MD
[2019-03-04 15:56] VITALS: BP 150/94
--- NOTE | 2019-03-04 17:04 | INFECTIOUS DISEASE PROGRESS NO ---
DATE: 03/04/2019 ADDENDUM: I called the patient and discussed with him the results we got back. The urine culture showed no white cells or bacteria. Therefore, I doubt he has a urinary tract infection. The patient's blood cultures are sterile after 48 hours and thus, I doubt he has an active endocarditis. The echocardiogram showed the vegetation on the valve. I discussed with the patient and Dr. Pizano who read the echocardiogram about valve surgery. The patient is not a surgical candidate for 3 reasons. 1-The valve is working well. 2-The patient does not want valve surgery. 3-The patient continues to use illicit IV drugs. cc: Juan Carlos Burroughs MD MTDD
--- NOTE | 2019-03-04 22:06 | DISCHARGE SUMMARY ---
ADMISSION DATE: 03/01/2019 DISCHARGE DATE: 03/04/2019 DISCHARGE DIAGNOSIS: 1. Endocarditis resolved. 2. Active polysubstance abuse, currently using heroin as a drug of choice. 3. Volume depletion, resolved. 4. Anemia of chronic disease. Aware. 5. Hepatitis C. Aware. CONSULTATIONS: Dr. Juan Carlos Burroughs from Infectious Disease. PROCEDURES: 1. Chest x-ray done on admission showed no evidence of acute pathology by plain radiograph. 2. Echocardiogram Doppler showed mild tricuspid regurgitation and there continues to be a vegetation adherent to what appears to be the septal leaflet of the tricuspid valve. It moves back into the right atrium. Visualization of the vegetation is not completely adequate for assessing the size. Normal left ventricle function with ejection fraction of 55%. HOSPITAL COURSE: This is a chronically ill-looking, 28-year-old male with a past medical history of active IV drug abuse, hepatitis C and endocarditis. Apparently, the patient last time he was in the hospital left against medical advice when he has a PICC line. Apparently, he was using some IV drugs. He did not get any of his prescriptions filled. He has not been followed in several weeks. Apparently, he contacted his primary care doctor who recommend him to come to the emergency department because apparently he had some fever and chills. He had shortness of breath. As we mentioned before, he reports still using IV drugs actively. The last time was 2 days before admission. In this case, it was heroin. The patient admitted to the hospital. He was started on vancomycin and blood cultures were drawn. For management of this condition, I consulted Dr. Burroughs of infectious disease. Apparently, this patient was complaining of fever and chills, but during all his stay here I did not see any episodes of fever or temperature even equal to 99. I have not seen any documentation of fever here. Dr. Burroughs was suspecting also probably a urine infection, but the urinalysis was completely normal and completely clear. Blood cultures turned out to be negative with no growth during the last 3 days. We repeated the echocardiogram which basically showed the same vegetation, but considering that he has blood culture is negative, I talked with Dr. Burroughs again, and considered that infection is resolved even though there was a residual vegetations. Considering his history of noncompliance, the patient, as we mentioned before, last time he left the hospital AMA. He did not receive any IV antibiotics and actually he was using his PICC line for drugs. Then, he considered that this patient have that condition resolved. He does not think that there is any more benefit to provide more antibiotics to him mainly because we decided to proceed with that he is not going to follow our indications. At this point, he is going to be released from the hospital. He does not need, according to ID, anymore antibiotics. He does not need any follow-up for those conditions. Patient advised to stop using drugs. He is going to be discharged in stable condition. DISCHARGE PHYSICAL EXAMINATION: Vitals: Temperature 98.5, heart rate 82, respiratory rate 16, blood pressure 139/82. O2 saturation 100% on room air. General examination: This is a chronically ill-appearing and somewhat malnourished 28-year-old male, lying in bed, in no acute distress. Cardiovascular exam: S1, S2 heard. No murmurs, gallops, or rubs. Regular rate and rhythm. Respiratory exam: Clear bilaterally to auscultation. No work of breathing or using accessory muscles. Abdomen: Soft. Nontender to palpation. Bowel sounds present. No organomegaly. Extremities: No clubbing, cyanosis, or edema. Peripheral pulses present in both legs. Neurological: The patient is alert and oriented x3. Moves 4 extremities. DISCHARGE DISPOSITION: Home to self-care. LIST OF MEDICATIONS: The patient does not need any medications. FOLLOW-UP: Patient does not need any follow-up at this point. DISCHARGE TIME: 20 minutes. cc: Ash Boss MD MTDSuzie
== END 2019-03-04 17:38 | disposition home or self-care (01) | DRG 307 ==
LOC: ED 02:24 → 2N 05:41 → SUATTDRO 05:41 → 1N 14:19
PROVIDERS: ATTEND Internal Medicine

== ENCOUNTER 2019-06-08 09:54 | Inpatient (IN) ==
[2019-06-08 10:31] LABS: INFLUENZA A NEGATIVE (NEGATIVE); INFLUENZA B NEGATIVE (NEGATIVE)
[2019-06-08 10:39] LABS: BASO# 0.03 X1000 (0.0-0.2); BASO% 0.2 % (0.0-0.8); HEMATOCRIT 30.1 % (42.0-52.0); HEMOGLOBIN 9.1 g/dL (14.0-18.0); IMM GRAN# 0.12 X1000 (0.0-0.04); IMM GRAN% 0.8 % (0.0-0.5); LYMPH# 1.17 X1000 (1.2-3.4); LYMPH% 7.4 % (20.5-51.1); MCH 25.1 PG (27-31); MCHC 30.2 g/dL (33-37); MCV 82.9 FL (81-99); MONO# 0.79 X1000 (0.11-0.59); MPV 11.4 FL (7.4-10.4); NEUT# 13.61 X1000 (1.4-6.5); NEUT% 86.6 % (42.2-75.2); PLT 330 X1000 (130-400); RBC 3.63 XMIL (4.7-6.1); RDW 16.3 % (11.5-14.5); WBC 15.72 X1000 (4.8-10.8)
[2019-06-08 10:45] LABS: LYMPHS 10 % (21-51); MONO 3 % (1-9); SEGS 87 % (42-75)
[2019-06-08] MEDS: NS 1,000 ML IV ONE ×2 (10:46→11:23)
[2019-06-08 10:51] LABS: INR 2.14; PROTIME 25.2 Seconds (11.0-16.0)
[2019-06-08 10:52] LABS: PTT 37.7 Seconds (22.3-41.8)
[2019-06-08 10:54] LABS: ALBUMIN 3.6 g/dL (3.5-5.0); CALCIUM 8.6 mg/dL (8.8-10.2); CREATININE 2.1 mg/dL (0.7-1.2); POTASSIUM 5.5 mmol/L (3.5-5.1); TOTAL BILIRUBIN 1.1 mg/dL (0.20-1.00); TOTAL PROTEIN 6.3 g/dL (6.3-8.3)
[2019-06-08] MEDS ORDERED: NS 1,000 ML IV ONE ×2 (10:56→16:00)
[2019-06-08] MEDS ORDERED: ROCEPHIN 1 GM in NS 50 ML IV ONE (10:56)
[2019-06-08] MEDS ORDERED: KAYEXALATE PO ONE (10:57)
--- NOTE | 2019-06-08 11:12 | EKG Report ---
Test Performed on : 06/08/2019 11:11:19 AM Test Reason : sob Blood Pressure : / mmHG Vent. Rate : 131 BPM Atrial Rate : 131 BPM P-R Int : 134 ms QRS Dur : 082 ms QT Int : 310 ms P-R-T Axes : 039 001 046 degrees QTc Int : 457 ms Sinus tachycardia. Possible Left atrial enlargement Cannot rule out Anterior infarct , age undetermined Abnormal ECG When compared with ECG of 01-MAR-2019 03:22, Vent. rate has increased BY 54 BPM QRS voltage has decreased Minimal criteria for Anterior infarct are now present T wave amplitude has decreased in Anterior leads Unconfirmed Result
[2019-06-08 11:27] LABS: CK INDEX 1.1 (0.0-2.5); CK-MB 2.57 ng/mL (0.0-5.0)
[2019-06-08] MEDS ORDERED: LASIX IV ONE (12:04)
[2019-06-08 12:11] LABS: URINE SOURCE CATH
[2019-06-08 12:15] LABS: BILIRUBIN URINE NEGATIVE (NEGATIVE); BLOOD URINE MODERATE (NEGATIVE); COLOR YELLOW; GLUCOSE URINE NEGATIVE (NEGATIVE); KETONE URINE TRACE mg/dL (NEGATIVE); LEUKOCYTES URINE NEGATIVE (NEGATIVE); NITRITE URINE NEGATIVE (NEGATIVE); PROTEIN URINE 600 mg/dL (NEGATIVE); SP GRAVITY URINE 1.026; TURBIDITY URINE HAZY (CLEAR); UROBILINOGEN URINE NORMAL (NORMAL)
[2019-06-08] MEDS ORDERED: NS 500 ML ONE ×2 (12:16→17:58)
[2019-06-08] MEDS ORDERED: NS 500 ML IV ONE (12:19)
[2019-06-08 12:22] LABS: UR AMPHETAMINES QUAL NONE DETECTED (NONE DETECT); UR BARBITUATES QUAL NONE DETECTED (NONE DETECT); UR BENZODIAZEPIN QUAL NONE DETECTED (NONE DETECT); UR CANNABINOIDS QUAL NONE DETECTED (NONE DETECT); UR COCAINE QUAL NONE DETECTED (NONE DETECT); UR METHADONE QUAL NONE DETECTED (NONE DETECT); UR METHAMPHETAMINE QUAL NONE DETECTED (NONE DETECT); UR OPIATES QUAL PRESUMPTIVE POSITIVE (NONE DETECT); UR OXYCODONE QUAL NONE DETECTED (NONE DETECT); UR PCP QUAL NONE DETECTED (NONE DETECT); UR PROPOXYPHENE QUAL NONE DETECTED (NONE DETECT); UR TCA QUAL NONE DETECTED (NONE DETECT)
[2019-06-08 12:29] LABS: UR EPITHELIAL CELLS <10 /HPF (<10); URINE BACTERIA 4+ /HPF; URINE CASTS GRANULAR PRESENT; URINE CRYSTALS NONE SEEN; URINE RBC <10 /HPF (<10); URINE SMALL ROUND CELLS NONE SEEN; URINE WBC <10 /HPF (<10); URINE YEAST NONE SEEN
[2019-06-08] MEDS ORDERED: DILAUDID IV ONE (12:29)
[2019-06-08] MEDS ORDERED: ZOFRAN IV ONE (12:30)
--- NOTE | 2019-06-08 12:41 | Diag Imaging Result Doc PS360 ---
EXAM: CHEST-1 VIEW INDICATION: sob TECHNIQUE: One view COMPARISON: 03/01/2019 FINDINGS: Inspiration is suboptimal. There is elevation of the right hemidiaphragm. There is increased opacity at the right lung base suggesting atelectasis given the volume loss +/- superimposed pneumonia. The left lung appears clear. There is no discrete pleural fluid collection or pneumothorax. The cardiac silhouette appears somewhat prominent, likely related to magnification from AP technique. IMPRESSION: Volume loss and increased opacity at the right lung base suggesting atelectasis +/- superimposed pneumonia. Electronically signed by Heriberto Vallejo 06/08/2019 12:38 PM
[2019-06-08] MEDS ORDERED: ZOSYN 3.375 GM in NS 50 ML IV ONE (12:49)
[2019-06-08 12:50] LABS: BE -14.6 mmoll (-3.0-3.0); BLOOD TYPE ARTERIAL; HCO3-(ACT) 13.5 mmoll (20.0-26.0); METHB 1.3 % (0.0-1.5); O2(CT) 12.4 mL/dL (15.0-23.0); O2HB 95.6 % (95.0-99.0); PO2(98.6) 87 mmHg (60-100); SAMPLE BLOOD; SAO2 99.2 % (95.0-100.0); THB 9.1 g/dL (11.5-17.4); pH(98.6) 7.37 (7.35-7.45)
[2019-06-08 12:53] LABS: MODALITY ROOM AIR
[2019-06-08 12:54] LABS: ALLEN TEST YES
[2019-06-08 12:55] LABS: PCO2(98.6) 15 mmHg (35-45)
--- NOTE | 2019-06-08 13:02 | PROVIDER DOCUMENTATION ---
This chart was entered by Hitesh Leos Scribe, acting as scribe for Alex Reeder MD. HPI-Abdominal Pain/GI Problem - General Chief Complaint: General Adult Stated Complaint: SOB, FEVER Time Seen by Provider: 06/08/19 09:56 Source: patient, family Allergies/Adverse Reactions: Patient Allergies Allergy/AdvReac Type Severity Reaction Status Date / Time No Known Allergies Allergy Verified 03/12/19 08:05 Home Medications: Home Medication List Medication Instructions Recorded Confirmed Last Taken Type NK [No Home Medications] 03/01/19 03/01/19 Unknown History - History of Present Illness-ABD Nature of Presenting Problems: 29 yom presents to the ed with c/o Abdominal pain. pt states being released from [facility] last night " because they did blood work said my liver, i have Hep-C." pt states SOB, Cough, Sinus Drainage, fever/chills. pt states " fever has been on and off through-out the day and night." pt states " voice is going out, and when i walk a its like im SOB." pt states diarrhea today. pt has hx of androgynistics. Abdominal Pain Onset Location: reports: generalized abdomen Pain Radiation: reports: no radiation Quality of Pain: reports: aching Severity in ED: reports: mild Onset/Duration: reports: last night Timing: reports: still present Activities at Onset: reports: none Exposure to sick contacts?: No Modifying Factors: worse with: movement (pt states waling makes SOB worse.) Associated Symptoms: reports: cough, diarrhea, fever/chills, sinus congestion/drainage, shortness of breath. denies: arm pain, back/neck pain, chest pain, constipation, dizziness, nausea, vomiting Last BM: this morning Dark Stools Present?: reports: none noticed Rectal Bleeding: reports: none # of Diarrhea Episodes: 1 Rectal Pain: reports: none Emesis Description: reports: none Bruising or Bleeding Gums?: No Similar Symptoms Previously?: No Recently seen or treated by another doctor?: No Review of Systems - Adult - REVIEW OF SYSTEMS - ADULT Constitutional: reports: see HPI, chills, fever Eyes: reports: no symptoms reported. denies: blurred vision, double vision Ears, Nose, Mouth & Throat: reports: see HPI, sinus problem, hoarseness. denies: ear pain, throat swelling Cardiovascular: denies: chest pain, heart murmur, palpitations Respiratory: reports: see HPI, cough, shortness of breath. denies: dyspnea on exertion, wheezing Gastrointestinal: reports: see HPI, abdominal pain. denies: constipation, diarrhea, nausea, vomiting Genitourinary: denies: dysuria, frequency, urinary retention, urgency Musculoskeletal: reports: no symptoms reported Integumentary: denies: hives, rash Neurological: denies: dizziness/vertigo, headache/migraines Psychiatric: reports: no symptoms reported Endocrine: reports: no symptoms reported Hematologic/Lymphatic: reports: no symptoms reported Allergic/Immunologic: reports: no symptoms reported All Other Systems: Reviewed and Negative Past History - Adult - PAST MEDICAL HISTORY-ADULT Review of Records: reports: Old Records Reviewed, Nursing Assessment Review, Medications Reviewed, Social history reviewed & non-contributory. Major Childhood Illnesses: reports: denies history Cardiovascular: reports: denies history, other (endocarditis) Respiratory: reports: denies history Gastrointestinal: reports: hepatitis Obstetrical/Gynecological: reports: denies history Genitourinary: reports: denies history Musculoskeletal: reports: denies history Neurological: reports: denies history Psychiatric: reports: denies history Endocrine/Immune: reports: anemia Other Conditions: reports: denies history - PRIOR SURGERIES/PROCEDURES Surgical/Procedure History: reports: none - IMMUNIZATION STATUS Childhood Immunizations: See Nurse Assessment Flu Vaccine: See Nurse Assessment - FAMILY HISTORY Family History: reviewed, not pertinent - SOCIAL HISTORY Smoking: denies Substance Use: denies Physical Exam-General - PHYSICAL EXAM-ADULT Initial Vital Signs Reviewed: Yes - CONSTITUTIONAL General Appearance: appears well, alert, mild distress - EYES Eyes: PERRL/EOMI - HEAD, EARS, NOSE, MOUTH & THROAT HENMT: moist mucous membranes, pharynx normal - NECK Neck: full range of motion - RESPIRATORY Respiratory: chest non-tender, lungs clear, normal breath sounds, no pleuratic chest pain, no respiratory distress, no accessory muscle use - CARDIOVASCULAR Cardiovascular: regular rate, rhythm, no edema, no gallop, no JVD, no murmur, tachycardia (133) - GASTROINTESTINAL (ABDOMEN) Abdominal Exam: normal bowel sounds, non tender, soft, no organomegaly, no pulsatile mass - GENITOURINARY Male Genitalia: deferred Rectal Exam: deferred Hemoccult Exam: deferred - MUSCULOSKELETAL Extremity: normal gait - SKIN Integumentary: normal turgor, warm/dry, pallor - NEUROLOGIC Neurologic: grossly normal, no motor/sensory deficits - PSYCHIATRIC Psych/Mental Status: normal mood/affect, normal thought content, normal thought process, oriented x 3 Progress - PLAN OF CARE/RESULTS Progress/Plan/Lab Results: Vital Signs - 8 hr 06/08/19 09:59 Temperature 98 F Pulse Rate 133 H Respiratory Rate 18 Blood Pressure 130/71 O2 Sat by Pulse Oximetry 98 Laboratory Results - last 24 hr 06/08/19 06/08/19 10:06 10:06 Influenza A (Rapid) NEGATIVE Influenza B (Rapid) NEGATIVE Group A Strep Rapid NEGATIVE Orders Category Date Time Status Cardiac Monitoring DIRECTED Care 06/08/19 10:24 Active IV Insertion ORDERED Care 06/08/19 10:24 Completed Notify MD of + Sepsis Screen NOW Care 06/08/19 10:24 Active Notify Physician As Ordered Care 06/08/19 10:24 Active BLOOD CULTURE [BLDCUL] Stat Lab 06/08/19 10:26 Ordered CBC WITH DIFF [HEME] Stat Lab 06/08/19 10:30 Received CK PROFILE [SP CHEM] Stat Lab 06/08/19 10:30 Received COMPREHENSIVE METABOLIC PANEL [CHEM] Stat Lab 06/08/19 10:[address] Stat Lab 06/08/19 10:[address] Stat Lab 06/08/19 10:06 Completed LACTATE, PLASMA [CHEM] Q3H Lab 06/08/19 10:30 Received LACTATE, PLASMA [CHEM] Q3H Lab 06/08/19 13:30 Uncollected LACTATE, PLASMA [CHEM] Q3H Lab 06/08/19 16:30 Uncollected PROTIME WITH INR [COAG] Stat Lab 06/08/19 10:30 Received PTT [COAG] Stat Lab 06/08/19 10:30 Received TROPONIN T Stat Lab 06/08/19 10:26 Ordered URINALYSIS W/POSS RFLX CULT [URINALYSIS] Stat Lab 06/08/19 10:24 Uncollected Oxygen Device Stat Oth 06/08/19 10:24 Active Result Diagrams: 06/08/19 10:30 06/08/19 10:30 - EKG 1 Time of EKG reading by physician:: 11:11 EKG Read and Signed by:: Alex Reeder EKG Interpretation (*Must complete 3 of following elements*): Abnormal Rate: 131 Rhythm: sinus tachycardia [place]: normal QRS: normal GA Interval: normal ST Wave: normal Comments: possible Lt atrial enlargment/cannot rule out anterior age, undetermind - XRAY 1 XRAY Study: Chest Impression: See EMR Report (EXAM: CHEST-1 VIEW INDICATION: sob TECHNIQUE: One view COMPARISON: 03/01/2019 FINDINGS: Inspiration is suboptimal. There is elevation of the right hemidiaphragm. There is increased opacity at the right lung base suggesting atelectasis given the volume loss +/- superimposed pneumonia. The left lung appears clear. There is no discrete pleural fluid collection or pneumothorax. The cardiac silhouette appears somewhat prominent, likely related to magnification from AP technique. IMPRESSION: Volume loss and increased opacity at the right lung base suggesting atelectasis +/- superimposed pneumonia. Electronically signed by Heriberto Vallejo 06/08/2019 12:38 PM 06/08/19 1238 Interpreting Physician: Heriberto Vallejo MD Dictated Date/Time: 06/08/19 1236 cc: Alex Reeder MD; None,PCP) - CONSULTS/PCP/HOSPITALIST Notification #1 *Consult/PCP/Hospitalist*: Dr. Reeder on the phone with Time Discussed: 12:53 (about pts condition ) Departure - Departure Date of Disposition Decision: 06/08/19 Time of Disposition Decision: 12:56 DIAGNOSIS: Substance abuse, Sepsis, Pneumonia, Elevated LFTs, CHF (congestive heart failure), Elevated troponin, Hyperkalemia, Renal insufficiency, Anemia Disposition: ADMITTED INPATIENT 09 Certified Medical Emergency: Emergent Condition: Serious Referrals and Follow-Ups: None,PCP [Primary Care Provider] - - Critical Care Note This patient required my direct & personal management of CC.: Yes Total Time (mins): 60 Critical Care Statement: This patient required my direct personal management to treat or rule out processes, the absence of which, could potentiallly result in sudden, clinically significant life or limb threatening deterioration. Attestation - Physician/ MOUNIKA Attestation Patient care was provided by Advanced Practice Provider:: No The physician spent face to face time with patient:: Yes Advanced Practice Provider documentation review:: Supervising physician onsite and consulted in the evaluation and care of this patient. The physician did have a face to face encounter with the patient. Sepsis: Tissue Perfusion Assmt - Physical Exam Assessment Date: 06/08/19 Time Assessment Initialized: 13:00 Vital Signs: Last Vital Signs Temp 99.1 F 06/08/19 12:22 Pulse 126 H 06/08/19 12:46 Resp 34 H 06/08/19 12:46 BP 160/68 06/08/19 12:46 Pulse Ox 100 06/08/19 12:46 Height 5 ft 11 in Weight 81.647 kg 06/08/19 13:00 see chart Lung Sounds:: lungs clear Heart Sounds:: Regular Capillary Refill Time: Less Than 2 Seconds Peripheral Pulse Evaluation:: radial (R): 4+, radial (L): 4+, dorsalis-pedis (R): 4+, dorsalis-pedis (L): 4+ Skin Exam:: turgor good - Impression Impression:: Tissue Perfusion Adequate - Plan Plan:: See Orders This chart was documented by the indicated scribe, (Hitesh Leos, Scribe) and accurately reflects the services I performed and decisions made by me, Alex Reeder MD, as attested by the provider's signature.
[2019-06-08] MEDS ORDERED: PRILOSEC PO SCH (13:30)
[2019-06-08] MEDS ORDERED: ZYVOX 600 MG/D5W 600 MG/300 ML IVPB IV SCH (13:30)
[2019-06-08] MEDS ORDERED: ZOFRAN IV PRN (14:02)
[2019-06-08] MEDS: NS 1,000 ML IV SCH ×2 (14:13→21:23)
--- NOTE | 2019-06-08 14:49 | Diag Imaging Result Doc PS360 ---
EXAM: CT THORAX/ABD/PELVIS W/O CON INDICATION: liver failure, resp failure, chf TECHNIQUE: This exam was performed using automated exposure control, adjustment of mA or kV according to patient size, and/or use of iterative reconstruction technique. COMPARISON: 01/03/2019 FINDINGS: CHEST: There is dense airspace infiltrate predominantly involving the right lower lobe and, to a lesser degree the right middle lobe and the left lower lobe at the left lung base indicating multilobar pneumonia. There are small focal scars at the upper lobes near the apices corresponding to cavitary lesions that were seen on the previous study. There is a stable subcentimeter nodule in the anterior right upper lobe on image 24 series 3. There is trace pleural fluid at the right lung base. The heart appears mildly prominent. There is also a small amount of pericardial fluid. No obvious mediastinal lymphadenopathy is identified given the limitations of a nonenhanced study. ABDOMEN/PELVIS: There is hepatosplenomegaly. However, the spleen is smaller than the previous study measuring up to 14.4 cm craniocaudally (17.2 cm previously). There is small volume ascites tracking around the liver and a moderate volume of ascites layering in the pelvis. The gallbladder appears to be contracted and there is extensive pericholecystic fluid. This may simply be due to the adjacent ascites. It would be difficult to exclude cholecystitis in the right clinical scenario. There is mild intrahepatic periportal edema. There is suggestion of mild hepatic steatosis. The pancreas, adrenal glands, and kidneys are grossly unremarkable as imaged with unenhanced CT. There is a Walters catheter in the urinary bladder and the bladder is nondistended. There is a small left inguinal hernia that contains ascites as well as a small loop of the colon. However, there is no evidence of obstruction. As imaged with unenhanced CT, the GI tract is grossly unremarkable, otherwise. There is no free abdominal gas identified. IMPRESSION: 1.Multilobar pneumonia at the lung bases, most significant at the right lower lobe. 2.Trace right pleural effusion. 3.Cardiomegaly with a small amount of pericardial fluid. 4.Hepatosplenomegaly but with a decrease in the size of the spleen is compared to the previous study. 5.Moderate ascites. 6.Contracted gallbladder with a large amount of surrounding fluid. This is probably simply from the ascites. However, it would be difficult to exclude cholecystitis in the right clinical scenario. 7.Small left inguinal hernia containing ascites and a small loop of the colon but no evidence of obstruction. Electronically signed by Heriberto Vallejo 06/08/2019 2:47 PM
--- NOTE | 2019-06-08 15:11 | Diag Imaging Result Doc PS360 ---
EXAM: US ABDOMEN-COMPLETE INDICATION: liver failure, alonzo COMPARISON: None. FINDINGS: No gallstones are identified. However, the gallbladder wall is markedly thickened and edematous. It measures up to 8.2 mm in thickness. There is surrounding ascites, which may contribute to this thickening. However, acalculous cholecystitis cannot be excluded. Please correlate clinically. The common bile duct is normal in diameter. The liver is grossly normal in echotexture. Portal venous flow is hepatopetal. The visualized pancreas is unremarkable. The aorta is obscured. The IVC is grossly unremarkable. The spleen is mildly prominent measuring up to 14 cm. The kidneys are grossly unremarkable. IMPRESSION: 1.Markedly thickened and edematous gallbladder wall with no stones identified. Although this could be in part due to a small amount of ascites surrounding the gallbladder, acalculous cholecystitis cannot be excluded. 2.Mildly prominent spleen. Electronically signed by Heriberto Vallejo 06/08/2019 3:09 PM
[2019-06-08] MEDS: MAXIPIME 1 GM in NS 50 ML IV SCH (16:00)
[2019-06-08] MEDS ORDERED: NS 1,000 ML IV SCH (16:15)
[2019-06-08] MEDS ORDERED: NUBAIN IV PRN (16:20)
[2019-06-08] MEDS ORDERED: VITAMIN K 10 MG in NS 50 ML IV ONE (16:21)
[2019-06-08] MEDS ORDERED: VANCOMYCIN IV PER PHARMACY MISC SCH (16:30)
[2019-06-08] MEDS ORDERED: PROTONIX IV SCH (16:30)
[2019-06-08] MEDS ORDERED: SODIUM CHLORIDE 0.9% INJ SCH (16:30)
[2019-06-08] MEDS ORDERED: LEVOPHED 8 MG in D5 1/2 NS 250 ML IV SCH (17:30)
[2019-06-08] MEDS ORDERED: NEO-SYNEPHRINE 50 MG in NS 250 ML IV SCH ×2 (17:30→17:45)
[2019-06-08 17:44] LABS: ALLEN TEST YES; BE -27.9 mmoll (-3.0-3.0); BLOOD TYPE ARTERIAL; HCO3-(ACT) 3.2 mmoll (20.0-26.0); O2HB 97.7 % (95.0-99.0); PO2(98.6) 197 mmHg (60-100); SAMPLE BLOOD; SAO2 100.9 % (95.0-100.0); THB 9.1 g/dL (11.5-17.4)
[2019-06-08 17:46] LABS: MODALITY AMBU BAG; PCO2(98.6) 19 mmHg (35-45); pH(98.6) 6.88 (7.35-7.45)
[2019-06-08] MEDS ORDERED: ATIVAN IV PRN (17:49)
[2019-06-08] MEDS ORDERED: LR 1,000 ML IV ONE (17:50)
[2019-06-08] MEDS ORDERED: SODIUM BICARBONATE 8.4% 150 MEQ in D5W 1,000 ML IV SCH (18:00)
[2019-06-08 18:04] LABS: BASO# 0.07 X1000 (0.0-0.2); BASO% 0.2 % (0.0-0.8); EOS# 0.01 X1000 (0.0-0.7); HEMATOCRIT 30.6 % (42.0-52.0); HEMOGLOBIN 9.1 g/dL (14.0-18.0); IMM GRAN# 0.39 X1000 (0.0-0.04); IMM GRAN% 1.2 % (0.0-0.5); MCH 25.6 PG (27-31); MCHC 29.7 g/dL (33-37); MONO# 1.68 X1000 (0.11-0.59); MPV 11.9 FL (7.4-10.4); NEUT# 29.38 X1000 (1.4-6.5); NEUT% 87.6 % (42.2-75.2); PLT 281 X1000 (130-400); RBC 3.56 XMIL (4.7-6.1); RDW 16.5 % (11.5-14.5); WBC 33.53 X1000 (4.8-10.8)
[2019-06-08] MEDS: LEVOPHED 8 MG in D5 1/2 NS 250 ML IV SCH ×2 (18:04→23:00)
[2019-06-08 18:13] LABS: ANISOCYTOSIS 2+; BANDS 6 % (0-1); LYMPHS 10 % (21-51); MONO 3 % (1-9); SEGS 81 % (42-75)
[2019-06-08 18:13] LABS: ALLEN TEST NO; BLOOD TYPE ARTERIAL; METHB 1.5 % (0.0-1.5); O2(CT) 3.2 mL/dL (15.0-23.0); O2HB 26.9 % (95.0-99.0); PCO2(98.6) 55 mmHg (35-45); SAMPLE BLOOD; SAO2 27.8 % (95.0-100.0); SRATE 20 BPM; THB 8.3 g/dL (11.5-17.4); TVOL 600 mL
[2019-06-08 18:14] LABS: LARGE PLATELETS 1+
[2019-06-08 18:15] LABS: MODALITY VENTILATOR; pH(98.6) < 6.80 (7.35-7.45)
[2019-06-08 18:16] LABS: PO2(98.6) 29 mmHg (60-100)
[2019-06-08] MEDS ORDERED: NORCURON IV ONE (18:38)
[2019-06-08 18:41] LABS: AGAP 31; ALB/GLOB RATIO 1.2; ALKALINE PHOSPHATASE 93 U/L (32-122); BUN 37 mg/dL (8-22); CALCIUM 7.5 mg/dL (8.8-10.2); CHLORIDE 90 mmol/L (98-107); COSMO 259; CREATININE 2.6 mg/dL (0.7-1.2); ESTIMATED GFR 30; GLUCOSE 40 mg/dL (70-104); MAGNESIUM 2.1 mg/dL (1.5-2.7); PHOSPHORUS 6.6 mg/dL (2.7-4.5); POTASSIUM 5.4 mmol/L (3.5-5.1); SODIUM 126 mmol/L (136-145); TCO2 5 mmol/L (25-35); TOTAL BILIRUBIN 1.78 mg/dL (0.20-1.00); TOTAL PROTEIN 5.6 g/dL (6.3-8.3)
[2019-06-08] MEDS ORDERED: NORCURON ONE (18:41)
[2019-06-08] MEDS ORDERED: D50W SYRINGE IV ONE (18:42)
[2019-06-08] MEDS ORDERED: STERILE WATER INJ. ONE (18:43)
[2019-06-08] MEDS: PITRESSIN 40 UNIT in NS 100 ML IV SCH ×2 (18:44→23:54)
[2019-06-08 18:49] LABS: GOT > 7000 U/L (10-34); GPT 2456 U/L (10-44)
[2019-06-08] MEDS ORDERED: SODIUM BICARBONATE 8.4% IV ONE ×2 (18:51→20:41)
[2019-06-08 18:54] LABS: BASO# 0.07 X1000 (0.0-0.2); BASO% 0.2 % (0.0-0.8); EOS# 0.04 X1000 (0.0-0.7); EOS% 0.1 % (0.0-10.0); HEMATOCRIT 30.4 % (42.0-52.0); HEMOGLOBIN 8.6 g/dL (14.0-18.0); IMM GRAN# 1.01 X1000 (0.0-0.04); IMM GRAN% 3.3 % (0.0-0.5); LYMPH# 2.81 X1000 (1.2-3.4); LYMPH% 9.1 % (20.5-51.1); MCH 25.3 PG (27-31); MCHC 28.3 g/dL (33-37); MCV 89.4 FL (81-99); MONO# 1.11 X1000 (0.11-0.59); MONO% 3.6 % (1.7-9.3); MPV 11.5 FL (7.4-10.4); NEUT% 83.7 % (42.2-75.2); PLT 149 X1000 (130-400); RDW 16.6 % (11.5-14.5); WBC 30.74 X1000 (4.8-10.8)
[2019-06-08] MEDS: D10W 250 ML IV SCH (18:57)
--- NOTE | 2019-06-08 19:24 | Diag Imaging Result Doc PS360 ---
EXAM: CHEST-PORTABLE INDICATION: tube placement TECHNIQUE: 2 views COMPARISON: 06/08/2019 FINDINGS: Electrode pads project over the lower chest wall and the left upper quadrant of the abdomen. There is a newly placed ET tube. The tip projecting over the trachea and above the theodore at about the T4 level. There is also a newly placed NG tube. The tip projects well below the diaphragm and is assumed to be in the lumen of the stomach in the expected position. Otherwise, the chest is essentially stable as compared to the previous study. IMPRESSION: Interval placement of ET tube and NG tube as described. Electronically signed by Heriberto Vallejo 06/08/2019 7:22 PM
[2019-06-08] MEDS: NIMBEX 80 MG in NS 160 ML IV SCH (19:27)
[2019-06-08 19:41] LABS: CK INDEX 1.4 (0.0-2.5); CK-MB 12.57 ng/mL (0.0-5.0)
[2019-06-08] MEDS ORDERED: FENTANYL 1,000 MICROGM in NS 80 ML IV SCH (20:00)
[2019-06-08] MEDS ORDERED: LOPRESSOR ONE (20:10)
[2019-06-08 20:38] LABS: ALLEN TEST YES; BLOOD TYPE ARTERIAL; METHB 0.3 % (0.0-1.5); O2(CT) 11.7 mL/dL (15.0-23.0); O2HB 96.6 % (95.0-99.0); PCO2(98.6) 24 mmHg (35-45); PO2(98.6) 126 mmHg (60-100); SAMPLE BLOOD; SAO2 98.9 % (95.0-100.0); THB 8.4 g/dL (11.5-17.4)
[2019-06-08 20:40] LABS: pH(98.6) < 6.80 (7.35-7.45)
[2019-06-08 20:41] LABS: MODALITY AMBU BAG
--- NOTE | 2019-06-08 20:41 | EKG Report ---
Test Performed on : 06/08/2019 6:00:47 PM Test Reason : code Blood Pressure : / mmHG Vent. Rate : 191 BPM Atrial Rate : 202 BPM P-R Int : 000 ms QRS Dur : 102 ms QT Int : 258 ms P-R-T Axes : 000 -03 054 degrees QTc Int : 460 ms Atrial fibrillation. with rapid ventricular response. Cannot rule out Anterior infarct , age undetermined Abnormal ECG No previous ECGs available Confirmed by Viktor HERNANDEZ, P.J.M ([id number]) on 06/10/2019 6:31:04 PM
[2019-06-08] MEDS: SODIUM BICARBONATE 8.4% 150 MEQ in D5W 1,000 ML IV SCH (21:09)
--- NOTE | 2019-06-08 21:23 | HISTORY AND PHYSICAL ---
CHIEF COMPLAINT: Abdominal pain. HISTORY OF PRESENT ILLNESS: This is a 29-year-old, male, well known to our service, who presented to the emergency department complaining of abdominal pain. The patient reports that the pain started 10 days ago. Abdominal pain all over, mostly noted in the right upper quadrant, along with fever, chills, nausea, but no vomiting. He also reports yellowish diarrhea, no blood on it. He actually was in senior care for the last 3 months, and because he was feeling sick, he got in senior care some lab tests and after he got his results, he was released and recommended to come to the emergency department. The patient has history of active IV drug abuse, but since he has been in custodial 3 months, he has not used any IV drugs. Upon my examination, he complains of shortness of breath, cough, and chills as well. His labs show liver failure and acute kidney injury. We are going to admit this patient to the intensive care unit. PAST MEDICAL HISTORY: 1. Polysubstance abuse, active IV drug abuse, his drug of choice is heroin. 2. History of hepatitis C diagnosed a couple of years ago. 3. History of endocarditis. PAST SURGICAL HISTORY: None. SOCIAL HISTORY: He used IV drugs, in this case heroin, but he has not used any while he has been in senior care for 3 months. He denies any alcohol or tobacco. Patient lives with . FAMILY HISTORY: Positive for coronary artery disease in father. ALLERGIES: No known drug allergies. HOME MEDICATIONS: No home medications. REVIEW OF SYSTEMS: Eleven systems were reviewed and all symptoms are related to H P. PHYSICAL EXAMINATION: VITALS: Temperature 99.1 degrees, heart rate 126, respiratory rate 44, blood pressure 138/74, O2 saturation 100% on 2 L nasal cannula. GENERAL: This is a chronically ill-appearing and malnourished, 29-year-old, male, lying in bed in no acute distress. HEENT: Head is normocephalic, atraumatic. Mucous membranes dry. Pupils equally round and reactive to light and accommodation. NECK: No JVD noted. No carotid bruits. No lymphadenopathy. No thyromegaly. CARDIOVASCULAR: S1, S2 heard. No murmurs, gallops, or rubs. Regular rate and rhythm. RESPIRATORY: Some crackles noted in both pulmonary bases. Patient is not using any accessory muscles or having work of breathing. ABDOMEN: Soft, but tender to palpation all over, mostly in the right upper quadrant. There is abdominal distention as well and he is very tender to palpation all over. EXTREMITIES: No clubbing or cyanosis. There is 1+ pitting edema in both lower extremities. NEUROLOGICAL: The patient is alert and oriented x3. Moves 4 extremities. LABORATORY DATA: White cell count 15.72, hemoglobin 9.1, hematocrit 30.1, platelets 330,000. ABG shows pH 7.37, pCO2 of 50, PO2 of 87. Potassium 5.5 and creatinine 2.1. AST 6428, ALT 2125, alkaline phosphatase 90. Troponin is 0.128. ProBNP 16,838. UDS positive for opiates. ASSESSMENT: 1. Severe sepsis. 2. Acute respiratory failure. 3. Multiorgan failure. 4. Acute hepatitis. 5. Acute kidney injury. PLAN: 1. Basically, this patient came to the emergency department complaining of abdominal pain. We found out that his liver function test is very elevated, in the range of 6000, both AST and ALT. I do not know if he had a superimposed hepatitis on top of what he already has, but it is hepatitis C. Patient reports that during the last 3 months that he has been in the senior care, he has not used any illicit drugs. The patient has acute liver failure with elevated INR, and very elevated AST and ALT. We will consult GI. We will see what else we can do for this patient. Regarding acute kidney injury, this is the first time that we see that this patient has an elevated creatinine. We will provide IV fluids and we will keep checking BMP daily 2. For history IV drug abuse, we have encouraged the patient to stop using drugs. 3. For sepsis, we are going to use Zyvox and cefepime, renally dose it. We will monitor this patient closely in intensive care unit. We will see if this patient needs vasopressors or not down the road. His lactate is very elevated at 8.4, so we will check it tomorrow and will go from there. CRITICAL CARE TIME: 50 minutes. cc: Ash Boss MD
[2019-06-08 21:57] LABS: LACTATE > 20.00 mmoll (0.44-2.22)
[2019-06-08] MEDS ORDERED: VANCOMYCIN 2,000 MG in NS 500 ML IV ONE (22:00)
--- NOTE | 2019-06-08 22:57 | PROGRESS NOTE ---
DATE: 06/08/2019 The patient coded. I think he coded somewhere around 17:30. He had gotten some pain medication, I think Nubain may be 1700. He had significant pain and then he just went into PEA, become unresponsive. We intubated him. He got 4 rounds of epinephrine and 1 round of sodium bicarbonate and just did not improve so he continued. Dr. Pagan placed a femoral line during the code and he was placed on Levophed and Dakota-Synephrine. We continued to monitor his blood pressure. It has been difficult to maintain despite multiple issues. He was given vecuronium. It looks like his heart rate is in atrial fibrillation and he will be placed on Cardizem as soon as we can stabilize his blood pressure which still has not happened. I have ordered a bicarbonate drip. A total of [address] Miles has ordered Nimbex. The patient's prognosis is extremely poor. He is in fulminant hepatic failure, now he is in respiratory failure. He is in cardiogenic shock so we will continue to follow closely, and he is in septic shock for unclear reasons. It certainly could be his gallbladder, could be other issues as well so we will continue to follow closely. This has been over an hour and a half for treatment currently. cc: Dillon Oliver MD
--- NOTE | 2019-06-08 23:45 | OPERATIVE NOTE ---
PROCEDURE DATE: 06/08/2019 I came in to do a consult on Mr. Jamie damon by arrival at the ICU they called a code on him. He had bradied down and had no pressure with his electrical activity. Cardiopulmonary resuscitative efforts began immediately. After he got a pulse and rhythm back was intubated. I was asked to place a central venous line. With ChloraPrep and sterile drape we did anesthetize the skin. I palpated the left femoral pulse and went simply just medial to the femoral pulse and accessed blood. We then passed a wire easily, dilated the tract and passed the triple-lumen catheter. We were able to aspirate blood from each lumen and flushed each lumen with saline. We secured the flange to the skin with silk contained within the tray. The sterile OpSite was applied. cc: Teja Pagan MD
[2019-06-09] MEDS: NIMBEX 80 MG in NS 160 ML IV SCH (00:14)
[2019-06-09] MEDS: D10W 250 ML IV SCH ×2 (00:18→04:46)
--- NOTE | 2019-06-09 00:18 | OPERATIVE NOTE ---
PROCEDURE DATE: 06/08/2019 PHYSICIAN: Dr. Dillon Oliver. PROCEDURE: Emergent endotracheal intubation. NARRATIVE: Patient was apneic and pulseless during the code. I used a Mac 3 blade. Cords were directly visualized. A little bit of difficulty easily getting the tube in because he was getting CPR at the same time, but ET tube was placed without difficulty. Bilateral breath sounds and tidal CO2 had processed. Chest x-ray confirmed placement. INDICATION: Respiratory failure, cardiogenic shock, emergent intubation. cc: Dillon Oliver MD
[2019-06-09] MEDS: NS 1,000 ML IV SCH ×2 (00:50→07:45)
--- NOTE | 2019-06-09 01:12 | PULMONOLOGY CONSULTATION ---
DATE: 06/09/2019 REASON FOR CONSULTATION: Cardiopulmonary arrest. HISTORY OF PRESENT ILLNESS: Mr. Ayala is a 29-year-old male with a history of IV drug use, history of tricuspid valve endocarditis, who has been in senior living for the last 3 months. The patient became sick while in senior living and blood work was performed and he was subsequently released from senior living. Patient presented to the emergency room with abdominal pain. Laboratories revealed leukocytosis, anemia, with AST of greater than 6000, ALT greater than 2000 and a lactic acid of 7. The patient was placed in the ICU. He remained tachycardic. Arterial blood gas revealed a lactate of 8.4 at noon. The patient developed progressive abdominal pain and became unresponsive and subsequently went into PEA. He was coded for at least 8 minutes. Left femoral line was placed by Dr. Pagan. High venous pressures were noted. I was notified of the consult and presented to the ICU. The patient was paralyzed in an attempt to synchronize ventilation and maximize ventilation. He remained tachycardic in the 160s and 170s. An arterial line was placed in the right femoral artery by this practitioner after routine prepping of the right groin site without difficulty. Systolic blood pressure was over 70. Patient's vasopressors were being weaned. He remained tachycardic. An arterial blood gas at 6 p.m. revealed a pH of less than 6.8, pCO2 of 55, pO2 of 29 with a lactate of greater than 18. The patient received a small dose of metoprolol (2.5 mg) in an attempt to slow his rate. The patient's rate did slow, but then he became bradycardic. CPR was re-initiated and he received atropine and several doses of epinephrine. He subsequently received a dose of calcium chloride with return of rhythm with a heart rate in the 135 to 140 range. Blood pressure again over 200 with reweaning of vasopressors. An arterial blood gas was performed at 8:30 which revealed a pH of less than 6.8, pCO2 of 24, PO2 of 126 and a lactate of greater than 20. PAST MEDICAL HISTORY: 1. History of tricuspid endocarditis. Following treatment he continued to have a lesion on the tricuspid valve, but this may have been a sterile process because cultures in February were negative. 2. Polysubstance abuse. 3. Hepatitis C. SOCIAL HISTORY: Incarcerated with recent release from senior living as per above. FAMILY HISTORY: Positive for heart disease. REVIEW OF SYSTEMS: Cannot be obtained. PHYSICAL EXAMINATION: General: Reveals an intubated, paralyzed and sedated male. He has peripheral mottling. He is pale and cyanotic. Vital Signs: Heart rate 139, blood pressure 180/42, oxygen saturation intermittently trending at 90. HEENT: Pupils are midpoint and slow to react. Oropharynx appears clear. Endotracheal tube in place with some blood in the endotracheal tube. Neck: Supple. Chest: Reveals coarse rhonchi bilaterally. Cardiac: Increased rate. Regular rhythm. Neither the 1st or the heart sound can be easily appreciated. Abdomen: Mildly distended. Extremities: Cool and clammy to the touch. LABORATORIES: Electrolytes at 16:43, sodium 126, potassium 5.4, chloride 90, bicarbonate of 5, anion gap 31, BUN 37, creatinine 2.6, glucose is 40, AST greater than 7000, ALT 2456. Most recent arterial blood gas, pH less than 6.8, pCO2 of 24, PO2 of 126 with a lactate of greater than 20. IMPRESSION: A 29-year-old with: 1. Cardiopulmonary arrest. 2. Acute hypoxemic respiratory failure. 3. Intractable lactic acidosis. 4. Acute liver injury. 5. Acute renal failure. 6. Abnormal heart sounds with an increase in his pulse pressure, incompetent valves suspected. DISCUSSION: A 29-year-old with problems outlined above. With 2 cardiac arrests, shock liver, renal failure, intractable lactic acidosis with a pH of less than 6.8. He is unlikely to survive this hospital stay. He is young and resuscitation efforts will continue. Dr. Oliver is meeting with the family to discuss his poor prognosis. PLAN: 1. Continue full ventilatory support. 2. Continue vasopressors. 3. Continue antibiotics. 4. Continue D10 for hypoglycemia likely related to liver failure. 5. Continue paralytic. 6. Continue fentanyl while on paralytic. 7. Prognosis is extremely poor. TIME: Spent in critical care management, 2+ hours with the right arterial line placement bundled into this time. cc: Jean Pierre Miles MD
[2019-06-09] MEDS: MAXIPIME 1 GM in NS 50 ML IV SCH (02:02)
[2019-06-09] MEDS: SODIUM BICARBONATE 8.4% 150 MEQ in D5W 1,000 ML IV SCH ×3 (02:51→10:24)
[2019-06-09] MEDS: LEVOPHED 8 MG in D5 1/2 NS 250 ML IV SCH ×2 (02:58→08:16)
[2019-06-09 05:16] LABS: ALLEN TEST YES; BE -23.7 mmoll (-3.0-3.0); BLOOD TYPE ARTERIAL; HCO3-(ACT) 6.5 mmoll (20.0-26.0); METHB 1.1 % (0.0-1.5); O2HB 97.5 % (95.0-99.0); PCO2(98.6) 24 mmHg (35-45); PO2(98.6) 159 mmHg (60-100); SAMPLE BLOOD; SRATE 28 BPM; THB 9.2 g/dL (11.5-17.4); TVOL 600 mL
[2019-06-09 05:17] LABS: MODALITY VENTILATOR
[2019-06-09 06:26] LABS: BASO# 0.22 X1000 (0.0-0.2); BASO% 0.4 % (0.0-0.8); HEMATOCRIT 32.7 % (42.0-52.0); HEMOGLOBIN 9.2 g/dL (14.0-18.0); MCH 25.8 PG (27-31); MCHC 28.1 g/dL (33-37); MCV 91.6 FL (81-99); PLT 42 X1000 (130-400); RBC 3.57 XMIL (4.7-6.1); WBC 50.52 X1000 (4.8-10.8)
[2019-06-09 06:45] LABS: PROTIME > 120.0 Seconds (11.0-16.0)
[2019-06-09 06:48] LABS: INR > 16.00
[2019-06-09 07:13] LABS: ALKALINE PHOSPHATASE 186 U/L (32-122); CHLORIDE 91 mmol/L (98-107); CREATININE 4.1 mg/dL (0.7-1.2); ESTIMATED GFR 17; GLUCOSE 157 mg/dL (70-104); POTASSIUM 5.9 mmol/L (3.5-5.1); SODIUM 135 mmol/L (136-145)
[2019-06-09 07:36] LABS: BUN 36 mg/dL (8-22); GOT > 7000 U/L (10-34); GPT 3566 U/L (10-44); PHOSPHORUS 12.8 mg/dL (2.7-4.5); TCO2 7 mmol/L (25-35); TOTAL PROTEIN 3.8 g/dL (6.3-8.3)
[2019-06-09 07:37] LABS: AGAP 37; ALB/GLOB RATIO 1.1; COSMO 282
[2019-06-09 07:38] LABS: CALCIUM 6.4 mg/dL (8.8-10.2)
[2019-06-09 07:53] LABS: BANDS 14 % (0-1); LYMPHS 18 % (21-51); SEGS 66 % (42-75)
[2019-06-09 07:54] LABS: ANISOCYTOSIS 2+; HYPOCHROM 1+; POIKILOCYTOSIS 2+
--- NOTE | 2019-06-09 07:56 | Diag Imaging Result Doc PS360 ---
EXAM: CHEST-PORTABLE INDICATION: dyspnea TECHNIQUE: One view COMPARISON: 06/08/2019 FINDINGS: Support tubes and lines are in stable positions. There has been significant worsening of consolidation on the right. Consolidation now involves the entire right lung. The left lung is stable. No other new consolidation is identified. Cardiac silhouette is stable. IMPRESSION: Interval worsening of consolidation on the right. Electronically signed by Heriberto Vallejo 06/09/2019 7:54 AM
[2019-06-09] MEDS ORDERED: NS 500 ML IV ONE (07:58)
[2019-06-09] MEDS ORDERED: SODIUM BICARBONATE 8.4% IV ONE (08:02)
[2019-06-09] MEDS ORDERED: CALCIUM GLUCONATE 4.65 MEQ in NS 50 ML IV ONE (08:03)
[2019-06-09] MEDS ORDERED: ALBUTEROL NEB INH ONE (08:05)
[2019-06-09] MEDS ORDERED: D50W SYRINGE IV ONE (08:06)
[2019-06-09] MEDS ORDERED: HUMULIN R IV ONE (08:06)
[2019-06-09] MEDS ORDERED: CUBICIN 600 MG in NS 100 ML IV SCH (08:15)
[2019-06-09] MEDS: PITRESSIN 40 UNIT in NS 100 ML IV SCH (08:17)
[2019-06-09] MEDS ORDERED: LOKELMA POWDER PACKET PO SCH (09:00)
[2019-06-09] MEDS ORDERED: VITAMIN K 10 MG in NS 50 ML IV SCH (09:00)
[2019-06-09] MEDS ORDERED: D10W 1,000 ML IV SCH (09:00)
[2019-06-09] MEDS ORDERED: SODIUM BICARBONATE 8.4% IV PUSH ONE (10:48)
[2019-06-09] MEDS ORDERED: SODIUM BICARBONATE 8.4% 150 MEQ in D5W 1,000 ML IV SCH (10:51)
[2019-06-09 11:16] VITALS: BP 36/15
--- NOTE | 2019-06-09 11:59 | PROGRESS NOTE ---
DATE: 06/09/2019 CODE NOTE: This will be, I believe, his fourth. The patient coded around, I believe, 11:55. His heart rate decreased. All drips were maxed out and then he started coding around 10:55. Dr. Miles was present, Dr. Burdick. The patient was evaluated, and he was coded for approximately [address] Burdick and Yee and myself had discussions with the and told them that he was pulseless and had no meaningful electric activity, is essentially , and the only thing that was continuing was a person keeping CPR, and she agreed to stop CPR and allow a natural . In total, the patient got 10 epinephrine, 1 calcium chloride infusion, 2 bicarb infusions. He did have some PEA, but for the most part was in asystole. The patient is probably in a combination of hemorrhagic, septic, and cardiogenic shock. He had worsening pneumonia. He had a profound coagulopathy, which may have included DIC as well, so his mortality was very high. I did discuss this with the , but she initially did not want to stop any treatment, or at least did not talk about anything then. Dr. Miles and Dr. Burdick were present during the code. Refer to nursing code note for further details. cc: Dillon Oliver MD [facility]
--- NOTE | 2019-06-09 13:49 | ECHO REPORT ---
ORDER DATE: 06/08/2019 INDICATION: Congestive heart failure. History of tricuspid vegetation. FINDINGS: 1. The right atrium is mildly enlarged. 2. Moderate tricuspid regurgitation. The previously noted tricuspid vegetation is not clearly evident on this study. RV systolic pressure of 52 suggesting pulmonary hypertension. 3. Normal RV size and systolic function. 4. Trace pulmonic insufficiency. 5. Mild left atrial enlargement with a volume index of 30. 6. The mitral leaflets are thickened. There is a 2.1 x 1.0 cm echodensity adherent to the atrial side of the anterior mitral leaflet suggesting a possible vegetation. There is a suggestion of severe mitral regurgitation. 7. Normal LV size, end-diastolic dimension of 5.4 cm. Normal wall thicknesses with a posterior and interventricular septal wall thickness of 1 cm each. Normal LV systolic function. Estimated ejection fraction of 60%. 8. Aortic valve appears thickened, and there is a possibility of adherent vegetation as well seen on the aortic valve cusps. There is at least moderate aortic insufficiency. This was difficult to grade given interference on this study. The valve appears trileaflet. 9. Aorta appears normal in visualized segments. 10. There is a small posterior pericardial effusion. cc: MD Ash Bacon MD MTDD
--- NOTE | 2019-06-09 15:12 | NEPHROLOGY CONSULTATION ---
DATE: 06/09/2019 REASON FOR ADMISSION: Abdominal pain, elevated liver enzymes, elevated creatinine. REASON FOR CONSULTATION: Assist with management, acute renal failure. CONSULTING PHYSICIAN: Dr. Oliver. HISTORY OF PRESENT ILLNESS: This is a 29-year-old gentleman with a past medical history of polysubstance abuse, active IV drug abuse (heroin), history of hepatitis C, history of recent endocarditis. He had been discharged from the local nursing home after being sick and was recommended to come to the emergency room. In the emergency room he had shortness of breath, cough, chills, abdominal pain. His liver function tests were extremely elevated. He originally had an AST of 6428, ALT of 2125. His bilirubin was 1.1. Initial CK was 231. He had elevated troponins and elevated BNP of 16,000. Initial lactate was 7. This dena to 10. His creatinine on admission was 2.1. His last creatinine in February was 0.6. Toxicology positive for opiates. He has urine study was positive for significant proteinuria, moderate blood, granular casts. Negative for leukocytes. Initial coagulation studies: He had a PT of 25.2 and an INR of 2.1. In the ER he did undergo a chest x-ray that showed atelectasis versus superimposed pneumonia to the right base. He underwent and abdomen ultrasound indicated a markedly thickened and edematous gallbladder but no stones, mildly prominent spleen, ascites. Kidneys were noted as unremarkable. The patient was transferred to the intensive care unit where shortly after admission there the patient developed increasingly severe abdominal pain. Eventually he was treated for his pain. He became unresponsive subsequently to PEA where ACLS protocol was initiated. He was coded for at least 8 minutes. He had a left femoral line placed. The patient was intubated. He required paralyzation to synchronize and maximize his ventilation. He remained tachycardic in the 160s to 170. He has remained on pressor support. His Levophed this morning is 26 mics. He is on 0.08 of vasopressin. Patient remains on Nimbex and fentanyl. The patient overnight had a subsequent event of bradycardia requiring CPR, atropine and epinephrine. This morning, his heart rate remains in the 120s. Epinephrine has been kept at the bedside. His labs this morning indicated creatinine has risen to 4.1. He has a CO2 of 7 a potassium of 5.9. His AST has risen to greater than 7000, AST ALT is risen to 3500. His troponins have continued to rise in plateaued early this morning at about 0.327. His last plasma lactate was drawn yesterday. It was 11. This was after his code. Blood gases this morning. He had a lactate of night. It was greater than 20 after his cardiopulmonary arrest last night. ABG: PH 7, pCO2 24, PO2 of 159. His bicarb was 6.5, base excess of 23.7. He remains on 100% FiO2 on the ventilator in AC mode. PAST MEDICAL HISTORY: As above. ALLERGIES: No known drug allergies. HOME MEDICATIONS: None. FAMILY HISTORY: Noncontributory. SOCIAL HISTORY: He was recently released from nursing home status post incarceration for at least the last 3 months. Other social history as above. REVIEW OF SYSTEMS: Unobtainable. PHYSICAL EXAMINATION: Vital Signs: Temperature 98.2 degrees, pulse 122 respiratory rate 28, blood pressure 128/46. Intake and output has not been documented yet this morning. General: This is a critically ill appearing gentleman. He is paralyzed, sedated, intubated and mechanically ventilated. HEENT: Normocephalic, atraumatic. He has blood coming from the nose and oral cavity. He has an NG tube to the right naris with bloody drainage noted. Peripheral mottling. Pupils are sluggish. Cardiac: Tachycardic. Remains on significant pressor support. Pulmonary: Rhonchi bilaterally, right greater than left. He is mechanically ventilated. Decreased breath sounds posterior. Abdomen: Distended. Hypoactive to quiet. : Walters catheter with scant, dark brown urine. Extremities: Cool. He has some mottling noted. Neurologic: Again sedated. LAB DATA: As noted above. ASSESSMENT/PLAN: 1. Acute renal failure secondary to status post cardiac arrest x2, shock liver, intractable lactic acidosis. The patient if he survives over the next 24 hours will need dialysis to assist with his electrolyte management. It is unclear if he would tolerate intervention today. His hemodynamics are extremely fragile. Family has already been in discussion with primary and pulmonology regarding his poor prognosis. 2. Acidosis. He is currently on bicarbonate at 3 ampules of 150 an hour. We will continue this. 3. Hyperkalemia has been modest in nature anticipate that it will rise with gastrointestinal bleeding that is apparent. 4. Thrombocytopenia. His PT is 120 and INR is 16. He already has fresh frozen plasma ordered. 5. Septic shock. Unclear etiology. Question of gallbladder followed by primary surgery. 6. Hepatic failure followed by primary. Again family has been informed by the primary regarding his grim prognosis. Dictated by NAHUN Rendon for Ward Yeung MD cc: Ward Yeung MD
--- NOTE | 2019-06-09 18:14 | PULMONOLOGY PROGRESS NOTE ---
DATE: 06/09/2019 The patient was evaluated earlier this morning while I rounding through the unit. Minor changes were made at that time. His labs were consistent with multiorgan dysfunction syndrome. Blood gas revealed a pH of 7.00, pCO2 of 24, PO2 of 159, with a lactate of 19. His electrolytes revealed a sodium 135, potassium 5.9, chloride 91, serum bicarbonate of 7, anion gap of 37, BUN 36, creatinine 4.1, AST greater than 7,000, ALT 3,566. His INR was unmeasurable and greater than 16. Blood cultures were growing gram-positive cocci in 2 bottles. I was rounding on another patient when a Code Blue was called. The patient developed bradycardia followed by asystole. CPR was initiated and ACLS employed for approximately 30 minutes. The patient had an occasional agonal rhythm which was transient and without a pulse/Bp.. After 30 minutes of a non-sustaining rhythm, the code was terminated. Physician and nursing staff were talking with the patient's during the code. CRITICAL CARE TIME: Time spent in critical care management, 1 hour. cc: Jean Pierre Miles MD MTDD
[2019-06-09] MEDS ORDERED: VANCOMYCIN 1,600 MG in NS 250 ML IV SCH (22:00)
[2019-06-10 17:27] LABS: HIV ANTIBODY SCREEN SEE COMMENTS
[2019-06-11 14:11] LABS: HEPATITIS PROFILE ACUTE SEE COMMENTS
[2019-06-12 10:03] LABS: HCV BY PCR SEE COMMENTS
--- NOTE | 2019-06-26 11:10 | DISCHARGE SUMMARY ---
ADMISSION DATE: 06/08/2019 DISCHARGE DATE: 06/09/2019 SUMMARY PROCEDURES: 1. Central line placement. 2. Femoral arterial line placement. 3. Emergent endotracheal intubation. CONSULTATIONS: 1. Pulmonary, Dr. Miles. 2. Nephrology Dr. Yeung. 3. There was an Infectious Disease and cardiology consult but he could not be evaluated before that. ADMISSION DIAGNOSES: 1. Septic shock. 2. Acute respiratory failure. 3. Acute hepatitis. 4. Acute kidney injury. DISCHARGE DIAGNOSES: 1. Enterococcus faecalis. 2. 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 3. Fulminant hepatic failure number. 4. Acute renal failure due to acute tubular necrosis. 5. Acute hypoxic respiratory failure due to sepsis. 6. Disseminated intravascular coagulopathy related to sepsis. 7. History of IV drug use although he denied drug use since his last admission. 8. History of endocarditis. BRIEF HISTORY AND HOSPITAL COURSE: Briefly, this is a 29-year-old male who was last seen. He had endocarditis previously. His last admission was in February. There were was difficulties taking care of him because of compliance active IV drug use. He did have a vegetation on his tricuspid valve from what I understand, but his blood cultures were negative. I do not think he got sent out on antibiotics as it was felt, I guess, resolved. He had been in longterm or custodial for the last 3 months and he denied any drug use. He had spent 3 months in custodial. He came in, he had been sick for about a week. They had done some labs I think maybe a couple days before he was admitted and he was discharged from custodial and then I think the following day, he came in. His liver enzymes were extremely elevated on admission, 64, 28 and 21, 25, AST and ALT. His T bilirubin at that time was not too bad. Creatinine was 2. His plasma lactate was 7. His troponins were elevated. He came in short of breath, tachycardic. He was getting volume resuscitated, but his lactate continue to increase. I would say sometime around 17;30, he went into PEA cardiac arrest. He got 4 rounds of epinephrine, 1 round of sodium bicarb in then he get a pulse and actually was hypertensive at that time. Dr. Pagan was present during the code and placed a femoral line. He was intubated. He was on [address] Miles evaluated him, put him on vecuronium. He was placed on a bicarbonate drip. Prognosis was poor. He was in fulminant hepatic failure at that point, possibly cardiogenic shock. His echocardiogram did show 2 lesions consistent with vegetations, a 2.1 x 1 cm on the anterior mitral leaflet and vegetation on the aortic valve as well with suggestion of severe mitral regurgitation, EF was 60%, but he had a significant mitral regurgitation. He was placed on broad-spectrum antibiotics including vancomycin which would have covered the Enterococcus he grew out of his blood. We did not have anything else at that time. Dr. Miles managed his ventilator aggressively with was D10. He was paralyzed. He was placed on fentanyl. I did discuss the case with the that evening about his poor prognosis, but she did want to stop anything. The following day, his blood pressure started to drop again. He was coded again we coded him I think 3 times on the night at least 2 times but there had been 3rd time, he had another 2 codes, but then he coded again around May 27:55. At that point he was in PEA and no pulse was ever reestablished. Dr. Burdick was present during the code and Dr. Miles. The I had discussions with and told her at this point, he was being kept alive artificially and there was no meaningful rescue of his pulse at this point. He was, for all intents and purposes, and we had a clear discussion about the fact that he was not being kept alive with machines, he was not even alive and at that point, she agreed to stop compressions. This was about 30 minutes and a code was called. Patient was pronounced at 11:24. 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 He also had a history of hepatitis C. TIME SPENT: Greater than 30 minute time. cc: Dillon Oliver MD
== END 2019-06-09 11:24 | disposition expired | DRG 871 ==
LOC: P.ED 09:54 → SUATTDRO 13:38 → ICU 13:38
PROVIDERS: ATTEND Internal Medicine